=== PATIENT | male | born 1955 | race Caucasian/White ===

== ENCOUNTER → 2017-07-22 | Outpatient (CLI) | payer MEDICARE, OTHER ==
[~2017-07-22] MED LIST: ALLO300T PO; BECL8.7A6 IH; BENZ200C47 PO; DOXY100C2 PO; HYDR-2758 PO; MELO15TA23 PO; TIOT18CA IH
--- NOTE | 2017-07-22 09:09 | RAD ---
MRI Lumbar Spine without contrast History: Low back pain worse the last 6 months, bilateral leg radiculopathy right greater than left Technique: Multiplanar, multi sequential noncontrast MR imaging was performed of the lumbar spine. Contrast: None Comparison: None Findings: Lumbar vertebral body stature is maintained. Conus terminates at T12-L1. Mild linear fat signal intensity at the L1 level is likely due to mild fatty filum terminale. There is mild degenerative disc disease at L2-3 and mild disc desiccation L1-2, L3-4 and L4-5. There are posterior annular tears at L4-5 and L1-2, anterior annular tears at L2-3 and L3-4. There is no significant marrow edema. L1-L2: There is negligible disc osteophyte complex and bulge. Neural foramina and spinal canal are adequate. L2-L3: There is negligible disc osteophyte complex and bulge. There is minimal narrowing of the far lateral recesses greater on the right. Neural foramina are adequate. L3-L4: There is a minimal disc osteophyte complex and bulge, extending to the inferior neural foramina. Spinal canal is overall adequate. Neural foramina are adequate. L4-L5: There is moderate facet degenerative change bilaterally. There is mild buckling of the ligamentum flavum. There is minimal disc osteophyte complex and bulge, extent into the inferior neural foramina bilaterally. There is moderate narrowing of the far right lateral recess. There is mild left and moderate right neural foramina compromise, contact of the undersurface and dorsal surface exiting right L4 nerve root in the neural foramen and the proximal extraforaminal region. L5-S1: Spinal canal and neural foramina are adequate. Impression: 1. There is moderate narrowing of the far right lateral recess L4-5 2. There is moderate narrowing of the right L4-5 neural foramen with contact exiting right L4 nerve root, minimal narrowing on the left at L4-5. 3. There is mild degenerative disc disease greatest L2-3. Electronically signed by: Hugo Burgess MD (07/22/2017 9:06 AM) [facility]
== END | disposition home or self-care (01) ==
LOC: MRI 07:52
DX: M51.36 Other intervertebral disc degeneration, lumbar region (principal); M54.41 Lumbago with sciatica, right side; M54.17 Radiculopathy, lumbosacral region
CPT/HCPCS: 72148

== ENCOUNTER → 2017-07-23 | Outpatient (CLI) | payer OTHER, MEDICARE ==
[~2017-07-23] MED LIST changes: +IOHEXOL 180 MG/ML 10 ML VIAL. ONE; +methylPREDNISolone ACETATE 40 MG/ML VIAL. ONE; +methylPREDNISolone ACETATE 80 MG/ML VIAL. ONE
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
== END | disposition home or self-care (01) ==
LOC: PNCL 10:48
PROVIDERS: ATTEND Anesthesiology
DX: M51.16 Intervertebral disc disorders with radiculopathy, lumbar region (principal); J44.9 Chronic obstructive pulmonary disease, unspecified; M19.90 Unspecified osteoarthritis, unspecified site; Z88.6 Allergy status to analgesic agent; Z88.8 Allergy status to other drugs, medicaments and biological substances
CPT/HCPCS: 62323; J1030; J1040

== ENCOUNTER → 2017-08-06 | Outpatient (CLI) | payer OTHER, MEDICARE ==
--- NOTE | 2017-08-06 13:00 | PAIN ---
DATE OF SERVICE: 08/06/2017 DIAGNOSES: Lumbar radiculopathy with lumbar degenerative disk disease and lumbar herniated disk. HISTORY OF PRESENT ILLNESS: The patient is a 61-year-old male who returns for followup status post lumbar epidural steroid injection x 1. The patient reports only minimal decrease in pain, still some significant pain in the low back and right lower extremity as it was previously, worse with walking, standing and changing positions. The patient reports it is still sharp and basically constant, alternating with some aching pain in the low back radiating to posterior gluteus, posterolateral thigh, lateral anterior thigh, anterior medial thigh, medial lower leg. Rates it a 10 on a scale of 10 at its worst, 7 on average and a 5 at its least and is a 7 today. The patient reports no new motor or sensory deficits, still significant pain. It does not awaken him from sleep. He feels much better with lying down or sitting down, worse with standing, walking, bending or changing positions. PHYSICAL EXAMINATION: VITAL SIGNS: The patient's blood pressure is 130/84, pulse 87, respirations 18, temperature 97.6 degrees Fahrenheit, height 6 feet, weight is 184 pounds. GENERAL: The patient is awake, alert, oriented, appropriate, very pleasant demeanor. HEENT: Head shows normocephalic, atraumatic. Extraocular movements are intact and symmetrical. Oral cavity: Mucous membranes are moist and pink. Dentition is intact. NECK: Shows anterior throat supple without palpable lymphadenopathy noted. Swallow reflex is symmetrical. CHEST: Shows normal on inspection. Breath sounds are clear to auscultation bilaterally. HEART: Shows S1, S2 clear. No murmurs auscultated. ABDOMEN: Soft, nontender, nondistended. No palpable organomegaly is noted. No rebound or guarding demonstrated. BACK: Shows spine grossly in the midline. Lumbar paraspinous muscle shows symmetrical on inspection, with palpation shows some moderate tenderness, but only diffusely in the low lumbar distribution. The patient also has multiple skin graft sites over the lumbar distribution as previously appreciated. EXTREMITIES: Lower extremities show deep tendon reflexes at 2+ in the patellar and tendo calcaneus tendons. Motor exam is strong with 5/5 dorsiflexion, extension, quadriceps and hamstring flexion and equal bilaterally. Peripheral pulses are 1+ posterior tibial. No peripheral edema is noted. Options were discussed with the patient. The patient's old chart was reviewed as his current medication regimen updated. Current review of systems updated today as well. We will proceed with a second in the series of lumbar epidural steroid injection with fluoroscopic guidance. Risks were again discussed including, but not limited to bleeding, infection, possibility of epidural hematoma, subsequent neurologic compromise, dural puncture, headaches, spinal cord and/or nerve damage, side effects of steroid medication and poor results regarding pain control. The patient understands and wished to proceed. The patient will return to clinic in approximately 2 weeks for followup. He was counseled as to return appointment, activity level and side effects to be aware of. DIAGNOSES: Lumbar radiculopathy with lumbar degenerative disk disease and lumbar herniated disk. PROCEDURE: Lumbar epidural steroid injection in translaminar approach at the L4-L5 level using C-arm fluoroscopic guidance under sterile prep and drape using local anesthetic. MEDICATION INJECTED: A total of 120 mg Depo-Medrol plus 10 mL of preservative-free normal saline and 2 mL of Isovue for contrast. CONDITION AT DISCHARGE: Stable. The patient tolerated the procedure well, had no complications. MIR ALANIZ MD DR: AVILA/hung JOB#: [id number] / [id number]
== END | disposition home or self-care (01) ==
LOC: PNCL 10:06
PROVIDERS: ATTEND Anesthesiology
DX: M51.16 Intervertebral disc disorders with radiculopathy, lumbar region (principal); Z88.6 Allergy status to analgesic agent; Z88.5 Allergy status to narcotic agent; Z88.8 Allergy status to other drugs, medicaments and biological substances
CPT/HCPCS: 62323; J1030; J1040

== ENCOUNTER → 2017-08-21 | Outpatient (CLI) | payer OTHER, MEDICARE ==
--- NOTE | 2017-08-21 17:06 | PAIN ---
DATE OF SERVICE: 08/21/2017 DIAGNOSES: Lumbar radiculopathy with lumbar degenerative disk disease, lumbar herniated disk. HISTORY OF PRESENT ILLNESS: The patient is a 61-year-old male who returns for followup status post lumbar epidural steroid injection x 2. The patient reports about 90% improvement for the first week to 2 weeks after his last injection. The patient reports pain began to return after that but only to a moderate extent in the low back and right leg. The patient reports he was doing very well until about 1 week ago, the pain began to return. It is aching, sharp, dull, becoming more constant, rating the posterior hip and lateral gluteus from the low back on the right side into the posterior thigh. The patient reports it is a 10 on a scale of 10 at its worst, 7 on average, is a 5 at its least, is a 5 today. The patient did see Neurosurgery evaluation and is recommending surgery if the pain continues as he does have a L4-L5 herniated disk on the right side. The patient reports it still wakes him from sleep occasionally, not every night, but he is doing overall better, increased his activity with greater ease and comfort and generally getting around better most times. The patient reports no new motor or sensory deficits, no new bowel or bladder incontinence or other complaints. PHYSICAL EXAMINATION: VITAL SIGNS: Today, his blood pressure is 131/88, pulse 81, respirations are 20, temperature 97.5 degrees Fahrenheit, height is 6 feet 0 inches, weight is 190 pounds. GENERAL: The patient is awake, alert, oriented, appropriate, very pleasant demeanor. HEENT: Head is normocephalic, atraumatic. Extraocular muscles are intact and symmetrical. Oral cavity: Mucous membranes moist and pink. Dentition is intact. NECK: Shows anterior throat supple without palpable lymphadenopathy noted. Swallow reflex is symmetrical. CHEST: Shows normal with inspection. Breath sounds clear to auscultation bilaterally. HEART: Shows S1, S2 clear. No murmurs auscultated. ABDOMEN: Soft, nontender, nondistended. No palpable organomegaly is noted. BACK: Shows spine grossly in midline. Normal appearing thoracic kyphosis and lumbar lordotic curvature. Lumbar paraspinous muscle shows some moderate tenderness with palpation, but is symmetrical on inspection, no radiation, no trigger points. The patient has good rotational motion both laterally as well as extension and flexion. EXTREMITIES: Lower extremities show deep tendon reflexes at 2+ in the patellar, 1+ tendo calcaneus tendons. Motor exam is strong with 5/5 dorsiflexion, extension, quadriceps and hamstring flexion and equal. Peripheral pulses are 1+ posterior tibial. No peripheral edema is noted. Options were discussed with the patient. The patient's old chart was reviewed as his current medication regimen and updated. Current review of systems is updated today as well. We will proceed with a lumbar epidural steroid injection today is the third in the series with fluoroscopic guidance. Risks were again discussed including, but not limited to bleeding, infection, possibility of epidural hematoma, subsequent neurologic compromise, dural puncture, headaches, spinal cord and/or nerve damage, side effects of steroid medication and poor results regarding pain control. The patient understands and wished to proceed. The patient will return to clinic in approximately 2 weeks for followup. He was counseled to return appointment, activity level and side effects to be aware of. The patient will also follow up with his neurosurgeon regarding surgical alternatives if desired. DIAGNOSIS: Lumbar radiculopathy with lumbar degenerative disk disease, lumbar herniated disk. PROCEDURE: Lumbar epidural steroid injection, translaminar approach at the L4-L5 level using C-arm fluoroscopic guidance under sterile prep and drape using local anesthetic. MEDICATION INJECTED: A total of 120 mg Depo-Medrol plus 10 mL of preservative free normal saline and 2 mL of Isovue for contrast. CONDITION AT DISCHARGE: Stable. The patient tolerated the procedure well, had no complications. MIR ALANIZ MD DR: AVILA/hung JOB#: [id number] / [id number]
== END | disposition home or self-care (01) ==
LOC: PNCL 09:18
PROVIDERS: ATTEND Anesthesiology
DX: M51.16 Intervertebral disc disorders with radiculopathy, lumbar region (principal); Z88.8 Allergy status to other drugs, medicaments and biological substances; Z88.6 Allergy status to analgesic agent; Z91.041 Radiographic dye allergy status
CPT/HCPCS: 62323; J1030; J1040

== ENCOUNTER → 2017-08-27 | Outpatient (CLI) | payer OTHER, MEDICARE ==
[2017-08-27 09:58] LABS: ADD MAN DIFF? NO
[2017-08-27 10:00] LABS: BASO # 0.1 x10^3/uL (0.0-0.2); BASO % 1 % (0-3); EOS % 1 % (0-3); HEMATOCRIT 47.1 % (39.0-53.0); HEMOGLOBIN 15.5 g/dL (13.0-17.5); LYMPH # 1.6 x10^3/uL (1.0-4.8); LYMPH % 15 % (24-48); MEAN CORPUSCULAR HEMOGLOBIN 27 pg (25-35); MEAN CORPUSCULAR HGB CONC 33 g/dL (31-37); MEAN CORPUSCULAR VOLUME 81 fL (79-100); MONO % 7 % (0-9); NEUT % 76 % (31-73); PLATELET COUNT 214 x10^3/uL (140-400); RED BLOOD COUNT 5.79 x10^6/uL (4.30-5.70); RED CELL DISTRIBUTION WIDTH 14.7 % (11.5-14.5); WHITE BLOOD COUNT 11.2 x10^3/uL (4.0-11.0)
[2017-08-27 10:20] LABS: ALBUMIN 3.3 g/dL (3.4-5.0); ALBUMIN/GLOBULIN RATIO 0.8 (1.0-1.7); ALK PHOS 75 U/L (46-116); ALT (SGPT) 23 U/L (16-63); ANION GAP 9 (6-14); AST (SGOT) 14 U/L (15-37); BLOOD UREA NITROGEN 23 mg/dL (8-26); BUN/CREATININE RATIO 23 (6-20); CALCIUM 8.7 mg/dL (8.5-10.1); CARBON DIOXIDE 30 mmol/L (21-32); CHLORIDE 101 mmol/L (98-107); GLUCOSE 101 mg/dL (70-99); POTASSIUM 4.1 mmol/L (3.5-5.1); SODIUM 140 mmol/L (136-145); TOTAL BILIRUBIN 0.2 mg/dL (0.2-1.0); TOTAL PROTEIN 7.7 g/dL (6.4-8.2)
[2017-08-27 21:17] LABS: MRSA BY PCR Negative (Negative)
== END | disposition home or self-care (01) ==
LOC: SURGPAT 09:33
DX: Z01.818 Encounter for other preprocedural examination (principal); M48.061 Spinal stenosis, lumbar region without neurogenic claudication; M54.16 Radiculopathy, lumbar region
CPT/HCPCS: 36415; 80053; 85025; 87641

== ENCOUNTER 2017-09-05 06:52 | Day surgery (SDC) | payer OTHER, MEDICARE ==
[2017-09-05] MEDS ORDERED: fentaNYL PF VIAL 100 MCG/2 ML VIAL IV (07:00)
[2017-09-05] MEDS ORDERED: ONDANSETRON PF 4 MG/2 ML VIAL. IV (07:00)
[2017-09-05] MEDS ORDERED: PROCHLORPERAZINE 10 MG/2 ML VIAL. IV (07:00)
[2017-09-05] MEDS ORDERED: IV RINGERS,LACTATED 1000ML 1,000 ML IV (07:00)
[2017-09-05] MEDS ORDERED: LIDOCAINE 1% PF 2 ML VIAL. ID (07:00)
[2017-09-05] MEDS ORDERED: REMIFENTANIL 2 MG VIAL. IV (08:14)
[2017-09-05] MEDS ORDERED: fentaNYL PF VIAL 100 MCG/2 ML VIAL (08:16)
[2017-09-05] MEDS ORDERED: PHENYLEPHRINE in 0.9% NACL PF 1 MG/10 ML SYRINGE. IV (08:17)
[2017-09-05] MEDS ORDERED: LIDOCAINE 2% PF Vial for OR 5 ML VIAL. (08:17)
[2017-09-05] MEDS ORDERED: PROPOFOL 20 ML IV (08:17)
[2017-09-05] MEDS ORDERED: ePHEDrine PF IN SALINE 50 MG/5 ML DISP.SYRIN IV (08:17)
[2017-09-05] MEDS ORDERED: ROCURONIUM 50 MG/5 ML VIAL. (08:17)
[2017-09-05] MEDS ORDERED: DEXAMETHASONE SOD PHOS 20 MG/5 ML VIAL. (08:17)
[2017-09-05] MEDS ORDERED: MIDAZOLAM HCL/PF 2 MG/2 ML VIAL. (08:17)
[2017-09-05] MEDS ORDERED: PROPOFOL 50 ML IV (08:17)
[2017-09-05] MEDS ORDERED: ONDANSETRON PF 4 MG/2 ML VIAL. (08:17)
[2017-09-05] MEDS: BUPIVAC MPF-EPI 0.75%-1:200000 30 ML VIAL. (09:38)
[2017-09-05] MEDS: BACITRACIN 50,000 UNIT in IV NORMAL SALINE 1000ML BAG 1,000 ML IRR (09:38)
[2017-09-05] MEDS: KETOROLAC 60 MG/2 ML INJ FOR OR. (09:38)
[2017-09-05] MEDS: GELATIN SPONGE SIZE 100. (09:38)
[2017-09-05] MEDS: THROMBIN TOPICAL 20,000 UNIT SPRAY.SYRN KIT TP (09:38)
[2017-09-05] MEDS ORDERED: NEOSTIGMINE METHYLSULFATE 5 MG/5 ML SYRINGE. (10:06)
[2017-09-05] MEDS ORDERED: GLYCOPYRROLATE 1 MG/5 ML VIAL. (10:06)
[2017-09-05] MEDS ORDERED: ALBUTEROL SULFATE 2.5 MG/3 ML NEBU. (11:03)
[2017-09-05] MEDS: ALBUTEROL SULFATE 2.5 MG/3 ML NEBU. NEB (11:25)
[2017-09-05] MEDS ORDERED: HYDROcodone/APAP 7.5/325MG 1 TAB TABLET PO (11:30)
[2017-09-05] MEDS: BENZONATATE 100 MG CAPSULE. PO (11:31)
[2017-09-05] MEDS: fentaNYL PF VIAL 100 MCG/2 ML VIAL IV (11:43)
[2017-09-05] MEDS: HYDROcodone/APAP 7.5/325MG 1 TAB TABLET PO (11:59)
== END 2017-09-05 13:12 | disposition home or self-care (01) ==
LOC: SURG 06:52
DX: M48.062 Spinal stenosis, lumbar region with neurogenic claudication (principal); I10 Essential (primary) hypertension; J44.9 Chronic obstructive pulmonary disease, unspecified; M10.9 Gout, unspecified; M19.90 Unspecified osteoarthritis, unspecified site; Z72.89 Other problems related to lifestyle; F17.210 Nicotine dependence, cigarettes, uncomplicated; Z88.8 Allergy status to other drugs, medicaments and biological substances; Z79.899 Other long term (current) drug therapy
CPT/HCPCS: 63030; 76000; 88304; 88311; 97162-GP; 97530-GP; G8978-CJ-GP; G8979-CJ-GP; G8980-CJ-GP; J1100; J1885; J2250; J2370; J2405; J2704; J2710; J3010; J3490; J7030; J7613

== ENCOUNTER → 2017-12-20 | Outpatient (CLI) | payer OTHER, MEDICARE | END | disposition home or self-care (01) | LOC: RAD 12:23 | DX: J44.1 Chronic obstructive pulmonary disease with (acute) exacerbation (principal); R09.1 Pleurisy; J18.1 Lobar pneumonia, unspecified organism | CPT/HCPCS: 71046 ==

== ENCOUNTER → 2018-05-01 | Outpatient (CLI) | payer OTHER, MEDICARE ==
[2017-09-05 12:15] VITALS: BP 126/74
[~2018-05-01] MED LIST changes: +DOCU-109 PO; +HYDR-2762 PO; -IOHEXOL 180 MG/ML 10 ML VIAL. ONE; +METH-38 PO; -methylPREDNISolone ACETATE 40 MG/ML VIAL. ONE; -methylPREDNISolone ACETATE 80 MG/ML VIAL. ONE
--- NOTE | 2018-05-01 12:41 | RAD ---
CHEST PA LATERAL dated 05/01/2018 12:00 AM. Comparison: 12/20/2017 Clinical Indication: PNEUMONIA OF LEFT UPPER LOBE DUE TO INFECTIOUS ORGANISM. F/U CONSOLIDATION.. Findings: PA and lateral views of the chest were obtained. Heart and mediastinal contours are stable. Postoperative changes of the left hilum with associated volume loss, similar to prior study. The previously described perihilar consolidation has improved from prior exam. There is a persistent nodular opacity at the left apex, unchanged. Mild linear scarring at the left base. The right lung remains clear. No pneumothorax. Impression: 1. Postsurgical changes of the left hilum with left-sided volume loss, unchanged. 2. Interval improvement in perihilar consolidation on the left. There is a persistent small nodular opacity at the left apex for which continued follow-up imaging may be warranted to ensure long-term stability. Electronically signed by: Mark Siddiqi MD (05/01/2018 12:38 PM) [facility]
== END | disposition home or self-care (01) ==
LOC: RAD 11:15
PROVIDERS: ATTEND Internal Medicine
DX: J18.1 Lobar pneumonia, unspecified organism (principal); I10 Essential (primary) hypertension; J44.1 Chronic obstructive pulmonary disease with (acute) exacerbation; F17.210 Nicotine dependence, cigarettes, uncomplicated; Z88.8 Allergy status to other drugs, medicaments and biological substances; Z88.6 Allergy status to analgesic agent; Z88.5 Allergy status to narcotic agent
CPT/HCPCS: 71046

== ENCOUNTER → 2018-05-19 | Outpatient (CLI) | payer OTHER, MEDICARE ==
[2017-09-05 12:15] VITALS: BP 126/74
[~2018-05-19] MED LIST changes: +CONTRAST GIVEN. MC PRN; +IOHEXOL 300 MG/ML 100ML VIAL. IV ONE
--- NOTE | 2018-05-19 17:37 | RAD ---
PQRS Compliance Statement: One or more of the following individualized dose reduction techniques were utilized for this examination: 1. Automated exposure control 2. Adjustment of the mA and/or kV according to patient size 3. Use of iterative reconstruction technique CT CHEST WO/W CONTRAST Clinical Indication: LEFT UPPER LOBE CONSOLIDATION, COUGH. Comparison: Two-view chest, May 01, 2018. TECHNIQUE: Helical CT imaging of the chest is performed before and after 75 cc Omnipaque 300 IV contrast. Findings: There is a 7 mm hypodense left thyroid nodule. There are 2 subcentimeter prevascular lymph nodes. There is a soft tissue density mass at the left hilum that measures up to 4 cm AP by 2 cm transverse by 4.5 cm craniocaudal, for example coronal image 33. There are postsurgical changes of left lower lobectomy. There is volume loss and elevation of left hemidiaphragm. There is narrowing of the left upper lobe bronchus by the left hilar mass. There are dilated tubular structures in the left lung apex that are not vascular and may be dilated opacified bronchi. There are a few groundglass micronodular opacities in the left lung apex. The opacified bronchi may be postobstructive infection or endobronchial spread of tumor. Mild respiratory motion artifact. The right lung is clear. No pleural effusion. Visualized upper abdomen is unremarkable. No compression fracture in the thoracic spine. IMPRESSION: 1. There is a soft tissue density mass at the left hilum that narrows the left upper lobe bronchus and is suspicious for malignancy. 2. There are dilated tubular structures in the left lung apex that may be dilated and opacified bronchi. Electronically signed by: Brayan Kiran MD (05/19/2018 5:34 PM) [id number]
== END | disposition home or self-care (01) ==
LOC: CT 09:34
DX: R91.8 Other nonspecific abnormal finding of lung field (principal); E04.1 Nontoxic single thyroid nodule; J18.1 Lobar pneumonia, unspecified organism; I10 Essential (primary) hypertension; J44.1 Chronic obstructive pulmonary disease with (acute) exacerbation; F17.210 Nicotine dependence, cigarettes, uncomplicated; Z88.5 Allergy status to narcotic agent; Z88.6 Allergy status to analgesic agent; Z88.8 Allergy status to other drugs, medicaments and biological substances; Z91.041 Radiographic dye allergy status; Z79.899 Other long term (current) drug therapy
CPT/HCPCS: 71270; Q9967

== ENCOUNTER → 2018-07-14 | Day surgery (SDC) | payer OTHER, MEDICARE ==
[~2018-07-14] MED LIST changes: +0.9 % SODIUM CHLORIDE 10 ML DISP.SYRIN. IV PRN; +ALBUTEROL SULFATE 2.5 MG/3 ML NEBU. NEB PRN; +BUDE10.22 IH; -CONTRAST GIVEN. MC PRN; +EPINEPHrine 1 MG/ML VIAL INJ ONE; +EPINEPHrine 1 MG/ML VIAL INJ PRN; -IOHEXOL 300 MG/ML 100ML VIAL. IV ONE; +IV RINGERS,LACTATED 1000ML 1,000 ML IV SCH; +LIDOCAINE 1% Multi-Dose 50 ML VIAL. INJ PRN; +LIDOCAINE 1% Multi-Dose 50 ML VIAL. ONE; +LIDOCAINE 1% PF 2 ML VIAL. ONE; +LIDOCAINE 2% VISCOUS 100 ML BOTTLE. MM PRN; +LIDOCAINE 2% VISCOUS 100 ML BOTTLE. ONE; +LIDOCAINE 4% TOPICAL 50 ML SOLUTION. MM PRN; +LIDOCAINE 4% TOPICAL 50 ML SOLUTION. ONE; +PROAIR HFA8.5 GM INH; +PROPOFOL 40 ML IV ONE
[2018-07-14 12:55] LABS: BASO # 0.1 x10^3/uL (0.0-0.2); BASO % 1 % (0-3); EOS # 0.2 x10^3/uL (0.0-0.7); EOS % 2 % (0-3); HEMATOCRIT 44.6 % (39.0-53.0); LYMPH # 1.6 x10^3/uL (1.0-4.8); LYMPH % 19 % (24-48); MEAN CORPUSCULAR HEMOGLOBIN 28 pg (25-35); MEAN CORPUSCULAR HGB CONC 34 g/dL (31-37); MEAN CORPUSCULAR VOLUME 82 fL (79-100); MONO # 0.7 x10^3/uL (0.0-1.1); MONO % 8 % (0-9); NEUT # 5.9 x10^3uL (1.8-7.7); NEUT % 70 % (31-73); PLATELET COUNT 205 x10^3/uL (140-400); RED BLOOD COUNT 5.41 x10^6/uL (4.30-5.70); RED CELL DISTRIBUTION WIDTH 14.2 % (11.5-14.5); WHITE BLOOD COUNT 8.5 x10^3/uL (4.0-11.0)
[2018-07-14 13:07] LABS: PROTHROMBIN TIME PATIENT 13.1 SEC (11.7-14.0)
[2018-07-14 14:07] VITALS: BP 129/70
--- NOTE | 2018-07-14 14:58 | OP ---
DATE OF SURGERY: PROCEDURE: Bronchoscopy. INDICATIONS: Lung mass. DESCRIPTION OF PROCEDURE: Informed consent was obtained from the patient. All risks and benefits were explained. He agreed to proceed with the procedure. Propofol was used by Anesthesia. Bronch was introduced through the right nostril. The upper airway was passed. Vocal cords moved equally with respiration. The trachea was reached. No tracheal lesions seen except for some white frothy secretions, which were all aspirated. The jere was deviated towards the right mainstem. The right lung was examined. All subsegments of right upper, right middle and right lower lobe were examined. No endobronchial lesions seen and no significant secretions seen. There was mild widening of the subcarina at the opening of the right upper lobe. 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 The mass was very vascular and with the touch of the scope and coughing, started to ooze blood. Epinephrine was used to control the bleeding, which was successful. Bronchial wash was performed from this area and then a cytology brush x 1 was performed. Once the bleeding stopped, the patient had two endobronchial biopsies. There was oozing of blood noted after the biopsy, which controlled effectively with squirts of epinephrine. The patient tolerated the procedure well. IMPRESSION: 1. 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 The mucosa leading to the left upper lobe bronchus was very erythematous as well. 2. Endobronchial biopsy x 2, cytology brush x 1 and bronchial wash was performed from this area. 3. The right lung showed no evidence of any endobronchial lesion. There was mild widening of the subcarina at the opening of the right upper lobe bronchus. 4. The jere was also deviated towards the right mainstem bronchus, but no lesions seen at the level of the jere. 5. Follow the results of biopsy. PAT NORIEGA MD DR: ALYSSA/hung JOB#: [id number] / [id number]
--- NOTE | 2018-07-15 14:09 | PATHOLOGY ---
Note [facility] Accession Number: [id number] TESTS RESULT FLAG UNITS REF RANGE LAB Clinician Provided Cytology Information No. of containers..01 Other (Miscellaneous) Source: BRIANNE BRUSH TIP DIAGNOSIS: BRIANNE BRUSH TIP INCONCLUSIVE - HYPOCELLULAR SPECIMEN WITH RARE ATYPICAL CELLS. NORMAL BRONCHIAL CELLS AND MACROPHAGES ARE PRESENT. PULMONARY MACROPHAGES (DUST CELLS) ARE PRESENT. SCANT CELLULARITY. Signed out by: Festus Callejas MD, Pathologist NPI- [id number] Performed by: Brayan Sierra, Radio Time Salesperson ([facility]) Gross description: 01 50ML, NONE, CLEAR /LCS FLAG LEGEND: L-Low Normal,H-High Normal,LL-Alert Low,HH-Alert High <-Panic Low,>-Panic High,A-Abnormal,AA-Critical Abnormal Performed at: [address] [address] Emmanuel Warren MD, [address] [address] Nathan Galvez MD, Specimen Comment: A courtesy copy of this report has been sent to Specimen Comment: [phone]. Specimen Comment: Report sent to Specimen Comment: A duplicate report has been generated due to demographic updates. Performed at: [address], [place], [place] [id number] MD Emmanuel Warren MD Phone: [phone]
--- NOTE | 2018-07-15 14:09 | PATHOLOGY ---
Note [facility] Accession Number: [id number] TESTS RESULT FLAG UNITS REF RANGE LAB Clinician Provided Cytology Information No. of containers..01 Other (Miscellaneous) Source: [A] 01 BRIANNE BRUSHING DIAGNOSIS: [A] 02 BRIANNE BRUSHING POSITIVE FOR MALIGNANT CELLS. NON SMALL CELL CARCINOMA IS PRESENT. Signed out by: Festus Callejas MD, Pathologist NPI- [id number] Performed by: Brayan Sierra, Analysis Lead ([facility]) Gross description: 01 25ML, NONE, CLEAR /LCS FLAG LEGEND: L-Low Normal,H-High Normal,LL-Alert Low,HH-Alert High <-Panic Low,>-Panic High,A-Abnormal,AA-Critical Abnormal Performed at: [address] [address] Emmanuel Warren MD, [address] [address] Nathan Galvez MD, Specimen Comment: A courtesy copy of this report has been sent to Specimen Comment: [phone]. Specimen Comment: Report sent to Specimen Comment: A duplicate report has been generated due to demographic updates. Performed at: [address] [place] [id number] MD Emmanuel Warren MD Phone: [phone]
--- NOTE | 2018-07-15 14:09 | PATHOLOGY ---
Note [facility] Accession Number: [id number] TESTS RESULT FLAG UNITS REF RANGE LAB Clinician Provided Cytology Information No. of containers..01 Other (Miscellaneous) Source: BRIANNE BRONCH WASH DIAGNOSIS: BRIANNE BRONCH WASH INCONCLUSIVE - RARE CLUSTERS OF ATYPICAL CELLS ARE PRESENT. NORMAL BRONCHIAL CELLS AND MACROPHAGES ARE PRESENT. PULMONARY MACROPHAGES (DUST CELLS) ARE PRESENT. Signed out by: Festus Callejas MD, Pathologist NPI- [id number] Performed by: Brayan Sierra, Boom Boss ([facility]) Gross description: 01 12ML, RED, CLOUDY /LCS FLAG LEGEND: L-Low Normal,H-High Normal,LL-Alert Low,HH-Alert High <-Panic Low,>-Panic High,A-Abnormal,AA-Critical Abnormal Performed at: [address] [address] Emmanuel Warren MD, [address] [address] Nathan Galvez MD, Specimen Comment: A courtesy copy of this report has been sent to Specimen Comment: [phone]. Specimen Comment: Report sent to Specimen Comment: A duplicate report has been generated due to demographic updates. Performed at: [address], [place] [id number] MD Emmanuel Warren MD Phone: [phone]
--- NOTE | 2018-07-17 17:08 | PATHOLOGY ---
[facility] Accession Number: [id number] . 01 Material submitted: . BRONCH BIOPSY LEFT UPPER LOBE . 01 Clinical history: . Lung mass . 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 (Please see comment). . (SKM:at;07/15/2018) QTA/07/15/2018 . 02 Comment: The tumor cells are positive for P40 and negative for TTF-1, cytokeratin 7, and napsin. . The findings in this case were relayed to Dr. Jo on 07/15/2018. This case has also been reviewed by Dr. Jesus M.D. who agrees with the diagnosis. . (SKM:at;07/15/2018) . 02 Electronically signed: . Festus Callejas MD, Pathologist NPI- [id number] . 01 Gross description: . Received in formalin labeled "Sarahi, Al[place], BBX BRIANNE," are 3 segments of shah soft tissue measuring 0.6 x 0.4 x 0.1 cm in aggregate dimensions and ranging from 0.1 to 0.3 cm in maximum dimension. The specimen is submitted entirely in cassette A1. (TSD; 07/14/2018) TOB/TOB . 02 Pathologist provided ICD-10: C34.12 . 02 CPT . 221028, A02291, A70950 Specimen Comment: A courtesy copy of this report has been sent to Specimen Comment: [phone], . Specimen Comment: Report sent to / DR TINAJERO Performed at: 01 [facility] [address] [place] [id number] MD Emmanuel Warren MD Phone: [phone] Performed at: [address] [id number] MD Nathan Galvez MD Phone: [phone]
== END | disposition home or self-care (01) ==
LOC: SURG 12:09
PROVIDERS: ATTEND Internal Medicine Critical Care Medicine
DX: C34.12 Malignant neoplasm of upper lobe, left bronchus or lung (principal); Z88.6 Allergy status to analgesic agent; Z88.8 Allergy status to other drugs, medicaments and biological substances; M19.90 Unspecified osteoarthritis, unspecified site; Z98.890 Other specified postprocedural states; Z79.899 Other long term (current) drug therapy; Z79.01 Long term (current) use of anticoagulants; F17.210 Nicotine dependence, cigarettes, uncomplicated
CPT/HCPCS: 31623; 31625; 36415; 85025; 85610; 85730; 87205; 88104; 88112; 94640; J0171; J2704; J7613; 31622; 87070; 88305; 88341; 88342

== ENCOUNTER → 2018-07-17 | Outpatient (CLI) | payer OTHER, MEDICARE ==
[2018-07-14 14:07] VITALS: BP 129/70
[~2018-07-17] MED LIST changes: -0.9 % SODIUM CHLORIDE 10 ML DISP.SYRIN. IV PRN; -ALBUTEROL SULFATE 2.5 MG/3 ML NEBU. NEB PRN; -EPINEPHrine 1 MG/ML VIAL INJ ONE; -EPINEPHrine 1 MG/ML VIAL INJ PRN; -IV RINGERS,LACTATED 1000ML 1,000 ML IV SCH; -LIDOCAINE 1% Multi-Dose 50 ML VIAL. INJ PRN; -LIDOCAINE 1% Multi-Dose 50 ML VIAL. ONE; -LIDOCAINE 1% PF 2 ML VIAL. ONE; -LIDOCAINE 2% VISCOUS 100 ML BOTTLE. MM PRN; -LIDOCAINE 2% VISCOUS 100 ML BOTTLE. ONE; -LIDOCAINE 4% TOPICAL 50 ML SOLUTION. MM PRN; -LIDOCAINE 4% TOPICAL 50 ML SOLUTION. ONE; -PROPOFOL 40 ML IV ONE
--- NOTE | 2018-07-17 13:04 | RAD ---
CLINICAL HISTORY: Lung mass on prior CT. INDICATION: Initial evaluation. COMPARISON: CT Chest 05/19/18 TECHNIQUE: Location of scan: [facility] Radiopharmaceutical Dose: 12.6 mCi F-18 FDG intravenous Blood glucose at time of study: 107 FDG uptake time = 60 minutes. Images were obtained from the mid head to the mid thighs. A low dose, noncontrast CT study was performed for the purpose of attenuation correction and anatomic localization. FINDINGS: Head and Neck: Physiologic activity is seen within the head and neck. Chest: The previously seen left hilar mass has an SUV max of 12.5 The groundglass opacities in the left upper lobe are grossly stable. Evaluation for increased metabolic activity is limited given the small size and patchy nature. A few mildly prominent mediastinal lymph nodes including an AP window lymph node measuring approximately 7 mm in short axis are seen. Grossly physiologic activity with SUV max of the AP window lymph node measuring 2.8. No pleural effusion or pneumothorax. Abdomen and Pelvis: Physiologic activity seen within the small large bowel. No abnormal uptake is seen within the solid organs. Skeletal: Physiologic activity is seen within the osseous structures. Reference SUV Values: Mediastinal SUV Max: 3 Liver SUV Max: 3.2 IMPRESSION: Hypermetabolic left hilar mass is seen corresponding to findings seen on prior CT. Given morphologic appearance and increased metabolic activity, this is highly suspicious for malignancy/recurrence. Although a few mildly prominent mediastinal lymph nodes are seen, they do not demonstrate increased metabolic activity. Radiation Dosimetry: The radiopharmaceutical used for this exam delivers approximately 0.7 mSv/mCi (70 mRem/mCi) Source: ICRP Publication 106
== END | disposition home or self-care (01) ==
LOC: PETSC 09:31
PROVIDERS: ATTEND Internal Medicine Critical Care Medicine
DX: R91.8 Other nonspecific abnormal finding of lung field (principal)
CPT/HCPCS: 78815; A9552

== ENCOUNTER → 2018-07-21 | Outpatient (CLI) | payer OTHER, MEDICARE ==
[2018-07-14 14:07] VITALS: BP 129/70
--- NOTE | 2018-07-21 16:17 | RAD ---
Quantitative perfusion lung scan, 07/21/2018: HISTORY: Left lung mass, previous left lobectomy Imaging of the chest was performed following IV injection of 6.2 mCi of technetium 99m MAA. Only approximately 4 percent of the overall lung perfusion occurs on the left and 96 percent on the right. Electronically signed by: Michael Mcrae MD (07/21/2018 4:13 PM) [facility]
== END | disposition home or self-care (01) ==
LOC: NM 07:44
PROVIDERS: ATTEND Internal Medicine Critical Care Medicine
DX: Z01.818 Encounter for other preprocedural examination (principal); R06.00 Dyspnea, unspecified
CPT/HCPCS: 78597; 96374; A9540

== ENCOUNTER 2018-08-15 06:47 | Outpatient (CLI) | payer OTHER, MEDICARE ==
[~2018-08-15] VITALS: Ht 180.3 cm; Wt 87.1 kg
[2018-08-15] VITALS (7 sets, daily range): BP systolic 104–137; BP diastolic 62–77
[~2018-08-15 06:47] MED LIST changes: -HYDR-2758 PO; +HYDR-2761 PO; -HYDR-2762 PO; +HYDR-2765 PO
[2018-08-15 07:53] LABS: PROTHROMBIN TIME PATIENT 12.7 SEC (11.7-14.0)
[2018-08-15] MEDS ORDERED: LIDOCAINE 1%/EPI 1:100,000 20 ML VIAL. ONE (07:58)
[2018-08-15] MEDS ORDERED: LIDOCAINE 1%/EPI 1:100,000 20 ML VIAL. IJ ONE (08:15)
[2018-08-15] MEDS ORDERED: fentaNYL PF VIAL 100 MCG/2 ML VIAL IV ONE (08:15)
[2018-08-15] MEDS ORDERED: MIDAZOLAM HCL/PF 2 MG/2 ML VIAL. IV ONE (08:15)
--- NOTE | 2018-08-15 09:14 | RAD ---
Procedure: Ultrasound and fluoroscopically guided placement of right internal jugular power port.. 08/15/2018 9:09 AM Clinical Indication: LUNG CANCER TREATMENT Sedation: Conscious sedation was administered for 30 minutes. The patient was monitored by a qualified independent observer throughout the time of sedation. Please refer to the medical record for exact doses of medications utilized to achieve moderate sedation. Fluoroscopy time: 0.6 minutes Dose area product: 2 Gycm2 Consent: The procedure was explained in its entirety to the patient or the patients designated territory account representative by a member of the treatment team, including a discussion of the risks, benefits and commonly accepted alternatives to the procedure, as well as the expected consequences of no therapy whatsoever. Discussion of the risks included, but was not limited to, those that are most frequent and those that are rare but possibly severe or life-threatening, as well as the possibility of unforeseen complications. Technique and Findings: All elements of maximal sterile barrier technique including the use of a cap, mask, sterile gown, sterile gloves, large sterile sheet, appropriate hand hygiene, and 2% chlorhexidine for cutaneous antisepsis (or acceptable alternative antiseptic per current guidelines) were followed for this procedure. Following informed consent, and a timeout procedure, the patient was prepped and draped in the usual sterile fashion. Ultrasound interrogation of the right neck revealed patency and compressibility of the right internal jugular vein. A 21-gauge micropuncture was then used to gain access to this vein under ultrasound guidance. A hard copy ultrasound image was recorded. The needle was exchanged over a wire for a sheath. A 1 inch incision was made several centimeters inferior to the venotomy site. A catheter was tunneled from this site dermatotomy site in the neck. Catheter was advanced through peel-away sheath such that its tip was in the proximal right atrium with the patient supine. The catheter was trimmed to length and connected to the port reservoir. The port was found to flush and aspirate normally. The wound was closed in layers using 4-0 Vicryl suture. Sterile dressings were applied. Impression: Successful ultrasound and fluoroscopically guided placement of a right internal jugular PowerPort
== END 2018-08-15 10:08 | disposition home or self-care (01) ==
LOC: INTRAD 06:47
PROVIDERS: ATTEND Internal Medicine Hematology & Oncology
DX: C34.12 Malignant neoplasm of upper lobe, left bronchus or lung (principal); Z79.01 Long term (current) use of anticoagulants; Z88.6 Allergy status to analgesic agent; Z91.048 Other nonmedicinal substance allergy status; Z88.8 Allergy status to other drugs, medicaments and biological substances
CPT/HCPCS: 36415; 36561; 76937; 77001; 85610; 99152; 99153; C1788; C1892; J0690; J2250; J3010; J3490; C1751

== ENCOUNTER → 2018-09-22 | Outpatient (CLI) | payer OTHER, MEDICARE ==
[2018-09-16 12:39] VITALS: BP 145/82
[~2018-09-22] MED LIST changes: +ALBU2.5V8 INH; +APIX5TAB PO; -PROAIR HFA8.5 GM INH
--- NOTE | 2018-09-22 12:15 | RAD ---
Chest radiograph 09/22/2018 10:24 AM INDICATION: Shortness of air since yesterday. Lung cancer. COMPARISON: CT chest May 19, 2018, chest radiograph May 01, 2018 TECHNIQUE: Frontal view of the chest is provided. FINDINGS: The cardiomediastinal silhouette is within normal limits. Right chest wall infusion port catheter is identified with the distal tip projecting over the superior vena cava. Surgical clips are identified in the left hilar region. Patchy interstitial changes are identified in the left hilar region. There is volume loss in the left lung with subsegmental atelectasis at the left lung base. Remote left-sided rib deformities are noted. The right lung is clear. No pulmonary vascular congestion or pneumothorax. IMPRESSION: Interstitial changes are identified in the left hilar region, improved since prior examinations. Findings most favor posttreatment related changes. Volume loss is noted in the left lung. No right-sided airspace consolidation. Electronically signed by: Kate Urena MD (09/22/2018 12:10 PM) [facility]
== END | disposition home or self-care (01) ==
LOC: RAD 09:55
PROVIDERS: ATTEND Radiology Radiation Oncology
DX: C34.12 Malignant neoplasm of upper lobe, left bronchus or lung (principal); J98.11 Atelectasis; M95.4 Acquired deformity of chest and rib
CPT/HCPCS: 71046

== ENCOUNTER → 2018-10-13 | Outpatient (CLI) | payer OTHER, MEDICARE ==
[2018-10-07 13:53] VITALS: BP 116/72
[~2018-10-13] MED LIST changes: +PRED20TA PO
--- NOTE | 2018-10-13 15:58 | RAD ---
Examination: 2 views of the chest HISTORY: History of cough, hemoptysis. COMPARISON: 09/22/2018 Findings/ impression: Volume loss identified in the left lung with increased airspace opacities identified in the left lower lobe of the lung likely pneumonia or atelectasis or mass with postobstructive atelectasis. Mild elevation of the left hemidiaphragm again identified.. Right-sided Port-A-Cath is identified. Surgical clips project in the left hilar region. Electronically signed by: Severino Chu MD (10/13/2018 3:54 PM) [place] [id number]
== END | disposition home or self-care (01) ==
LOC: RAD 15:29
PROVIDERS: ATTEND Family Medicine
DX: R04.2 Hemoptysis (principal)
CPT/HCPCS: 71046

== ENCOUNTER → 2018-10-27 | Outpatient (CLI) | payer OTHER, MEDICARE ==
[2018-10-07 13:53] VITALS: BP 116/72
[2018-10-27 15:47] LABS: BASO % 1 % (0-3); EOS # 0.1 x10^3/uL (0.0-0.7); EOS % 1 % (0-3); HEMATOCRIT 41.8 % (39.0-53.0); HEMOGLOBIN 13.6 g/dL (13.0-17.5); LYMPH # 0.8 x10^3/uL (1.0-4.8); LYMPH % 12 % (24-48); MEAN CORPUSCULAR HEMOGLOBIN 27 pg (25-35); MEAN CORPUSCULAR HGB CONC 33 g/dL (31-37); MEAN CORPUSCULAR VOLUME 84 fL (79-100); MONO # 0.7 x10^3/uL (0.0-1.1); MONO % 11 % (0-9); NEUT # 4.9 x10^3uL (1.8-7.7); NEUT % 75 % (31-73); PLATELET COUNT 240 x10^3/uL (140-400); RED CELL DISTRIBUTION WIDTH 17.5 % (11.5-14.5); WHITE BLOOD COUNT 6.5 x10^3/uL (4.0-11.0)
[2018-10-27 16:05] LABS: ALBUMIN 3.4 g/dL (3.4-5.0); ALBUMIN/GLOBULIN RATIO 0.8 (1.0-1.7); CALCIUM 9.3 mg/dL (8.5-10.1); CREATININE 1.1 mg/dL (0.7-1.3); GFR 67.6; POTASSIUM 4.3 mmol/L (3.5-5.1); TOTAL BILIRUBIN 0.4 mg/dL (0.2-1.0); TOTAL PROTEIN 7.7 g/dL (6.4-8.2)
== END | disposition home or self-care (01) ==
LOC: LAB 14:53
PROVIDERS: ATTEND Internal Medicine Hematology & Oncology
DX: C34.12 Malignant neoplasm of upper lobe, left bronchus or lung (principal)
CPT/HCPCS: 36415; 80053; 84443; 85025

== ENCOUNTER → 2018-11-03 | Outpatient (CLI) | payer OTHER, MEDICARE ==
[2018-10-28 09:51] VITALS: BP 114/72
--- NOTE | 2018-11-03 16:35 | RAD ---
EXAM: AP View of the chest DATE: 11/03/2018 12:47 PM INDICATION: COUGH, RESPIRATORY INFECTION COMPARISON: 10/13/2018, 09/22/2018 FINDINGS: Leftward mediastinal shift is grossly stable with associated left lung parenchymal opacities. Hyperextension of the right lung, emphysematous change. Associated left hemidiaphragm elevation. Right Port-A-Cath tip projects over the expected mid SVC. Mediastinal surgical clips are seen No pleural effusion or pneumothorax. IMPRESSION: 1. Leftward deviation of the cardiomediastinal silhouette is grossly stable. Associated left lung parenchymal opacities, likely scarring/atelectasis. Electronically signed by: Aashish Zhang MD (11/03/2018 4:32 PM) [facility]
== END | disposition home or self-care (01) ==
LOC: LAB 12:35
PROVIDERS: ATTEND Nurse Practitioner Gerontology
DX: J98.8 Other specified respiratory disorders (principal); J43.9 Emphysema, unspecified; J98.6 Disorders of diaphragm; R93.89 Abnormal findings on diagnostic imaging of other specified body structures
CPT/HCPCS: 71045

== ENCOUNTER 2018-11-04 09:31 | Inpatient (IN) | payer OTHER, MEDICARE ==
[~2018-11-04] VITALS: Ht 182.9 cm; Wt 89.8 kg
[~2018-11-04 09:31] MED LIST changes: -PRED20TA PO
[2018-11-04] MEDS ORDERED: IV NORMAL SALINE 1000ML BAG 1,000 ML IV SCH (10:00)
[2018-11-04] MEDS ORDERED: 0.9 % SOD CHL for STERILE FIELD 10 ML DISP.SYRIN. ONE (10:02)
--- NOTE | 2018-11-04 10:09 | RAD ---
Examination: PORTABLE CHEST 1V History: SHORT OF BREATH AND COUGH Comparison/Correlation: 11/03/2018 portable chest x-ray exam Findings: Frontal view chest was obtained by portable technique. Right internal jugular infusion port catheter tip terminates overlying the superior vena cava. Surgical clips are present involving the medial left mid thoracic level. Relatively less left lung volume is similar to prior exam. Old left rib fractures are noted. Interstitial edema or atelectasis of the left lung base medially is present in the interval. Right lung field is clear. Impression: Left medial lung base interstitial edema or atelectasis is increase in the interval. Electronically signed by: Alin Esquivel MD (11/04/2018 10:06 AM) [id number]
--- NOTE | 2018-11-04 10:13 | PHYS DOC ---
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 Patient had heart rate of 140s and respiratory irritation of 45 while he was at his oncologist office regarding lung cancer routine appointment. She'll complaining of increasing chronic cough for the last 5 days with green and bloody sputum this morning. Patient complaining of increasing chronic shortness of breath also with mild activity. Patient complaining of chest pain during episodes of cough and generalized weakness, sore throat, earache, nasal congestion the last 5 days. Patient denies fever and chills, focal neuro deficit, sick contact. Patient states he started leftover doxycycline 5 days ago and seen by his primary care physician office yesterday and started on doxycycline without improvement of his condition. Review of Systems Review of Systems Constitutional: Denies fever or chills [] Eyes: Denies change in visual acuity, redness, or eye pain [] HENT: Denies nasal congestion or sore throat [] Respiratory: Denies cough or shortness of breath [] Cardiovascular: No additional information not addressed in HPI [] GI: Denies abdominal pain, nausea, vomiting, bloody stools or diarrhea [] : Denies dysuria or hematuria [] Musculoskeletal: Denies back pain or joint pain [] Integument: Denies rash or skin lesions [] Neurologic: Denies headache, focal weakness or sensory changes [] Endocrine: Denies polyuria or polydipsia [] All other systems were reviewed and found to be within normal limits, except as documented in this note. Current Medications Current Medications Current Medications Medications (Trade) Dose Ordered Sig/Tadeo Start Time Stop Time Status Last Admin Dose Admin Albuterol/ Ipratropium (Duoneb) 3 ml 1X ONCE 11/04/18 10:15 11/04/18 10:16 DC 11/04/18 10:04 3 ML Sodium Chloride (NORMAL SALINE FLUSH for STERILE FIELD) 10 ml STK-MED ONCE 11/04/18 10:02 11/04/18 10:03 DC Allergies Allergies Allergies Coded Allergies Type Severity Reaction Last Updated Verified acetaminophen Allergy Intermediate sweating and itching 10/28/18 Yes adhesive tape Allergy Intermediate 10/28/18 Yes oxycodone Allergy Intermediate sweating and itching 10/28/18 Yes paroxetine Adverse Reaction Intermediate diarrhea 10/28/18 Yes Physical Exam Physical Exam Constitutional: Well developed, mild distress, non-toxic appearance. [] HENT: Normocephalic, atraumatic, bilateral external ears normal, oropharynx moist, no oral exudates, nose normal. [] Eyes: PERRLA, EOMI, conjunctiva normal, no discharge. [] Neck: Normal range of motion, no tenderness, supple, no stridor. [] Cardiovascular: Tachycardia, no murmur [] Lungs & Thorax: Bilateral wheezing and decrease of air movement. Abdomen: Bowel sounds normal, soft, no tenderness, no masses, no pulsatile masses. [] Skin: Warm, dry, no erythema, no rash, several large skin graft. [] Back: No tenderness, no CVA tenderness. [] Extremities: No tenderness, no cyanosis, no clubbing, ROM intact, no edema. [] Neurologic: Alert and oriented X 3, normal motor function, normal sensory function, no focal deficits noted. [] Psychologic: Affect normal, judgement normal, mood normal. [] Current Patient Data Vital Signs Vital Signs Date Time Temp Pulse Resp B/P (MAP) Pulse Ox O2 Delivery O2 Flow Rate FiO2 11/04/18 10:32 107 32 140/86 (104) 94 Room Air 11/04/18 09:44 99.3 99.3 Lab Values Laboratory Tests Test 11/04/18 10:30 White Blood Count 6.4 x10^3/uL (4.0-11.0) Red Blood Count 4.70 x10^6/uL (4.30-5.70) Hemoglobin 12.9 g/dL (13.0-17.5) L Hematocrit 39.6 % (39.0-53.0) Mean Corpuscular Volume 84 fL (79-100) Mean Corpuscular Hemoglobin 28 pg (25-35) Mean Corpuscular Hemoglobin Concent 33 g/dL (31-37) Red Cell Distribution Width 17.8 % (11.5-14.5) H Platelet Count 130 x10^3/uL (140-400) L Neutrophils (%) (Auto) 69 % (31-73) Lymphocytes (%) (Auto) 9 % (24-48) L Monocytes (%) (Auto) 18 % (0-9) H Eosinophils (%) (Auto) 3 % (0-3) Basophils (%) (Auto) 1 % (0-3) Neutrophils # (Auto) 4.4 x10^3uL (1.8-7.7) Lymphocytes # (Auto) 0.6 x10^3/uL (1.0-4.8) L Monocytes # (Auto) 1.2 x10^3/uL (0.0-1.1) H Eosinophils # (Auto) 0.2 x10^3/uL (0.0-0.7) Basophils # (Auto) 0.0 x10^3/uL (0.0-0.2) Segmented Neutrophils % 75 % (35-66) H Lymphocytes % 7 % (24-48) L Monocytes % 15 % (0-10) H Eosinophils % 2 % (0-5) Basophils % 1 % (0-3) Platelet Estimate Decreased (ADEQUATE) Large Platelets Occ Giant Platelets Occ D-Dimer (Yudi) 0.50 ug/mlFEU (0.00-0.50) Sodium Level 140 mmol/L (136-145) Potassium Level 3.9 mmol/L (3.5-5.1) Chloride Level 101 mmol/L (98-107) Carbon Dioxide Level 26 mmol/L (21-32) Anion Gap 13 (6-14) Blood Urea Nitrogen 15 mg/dL (8-26) Creatinine 1.2 mg/dL (0.7-1.3) Estimated GFR (Cockcroft-Gault) 61.1 BUN/Creatinine Ratio 13 (6-20) Glucose Level 111 mg/dL (70-99) H Lactic Acid Level 1.4 mmol/L (0.4-2.0) Calcium Level 9.0 mg/dL (8.5-10.1) Total Bilirubin 0.4 mg/dL (0.2-1.0) Aspartate Amino Transferase (AST) 24 U/L (15-37) Alanine Aminotransferase (ALT) 30 U/L (16-63) Alkaline Phosphatase 75 U/L (46-116) Creatine Kinase 87 U/L (39-308) Creatine Kinase MB (Mass) 1.4 ng/mL (0.0-3.6) Creatine Kinase MB Relative Index 1.6 % (0-4) Troponin I Quantitative < 0.017 ng/mL (0.000-0.055) ON-Xbh-Q-Type Natriuretic Peptide 126 pg/mL (0-124) H Total Protein 7.2 g/dL (6.4-8.2) Albumin 3.4 g/dL (3.4-5.0) Albumin/Globulin Ratio 0.9 (1.0-1.7) L Influenza Type A Antigen Negative (NEGATIVE) Influenza Type B Antigen Negative (NEGATIVE) Laboratory Tests 11/04/18 10:30 Laboratory Tests 11/04/18 10:30 EKG EKG EKG interpreted by me. EKG at 0 940 showed sinus tachycardia at rate of 111, left atrial abnormalities, right superior axis deviation, RVH, poor R-wave progress in anteroseptal leads, no acute ST and T-wave abnormalities. Radiology/Procedures Radiology/Procedures [][facility] [address] [place], [place] [id number] IMAGING REPORT Signed PATIENT: DEBBIE SHARIF ACCOUNT: [id number] : 1955 LOCATION: ER AGE: 63 SEX: M EXAM STATUS: REG ER ORD. PHYSICIAN: RAMESH WRIGHT MD REASON: shortness of breath and cough PROCEDURE: PORTABLE CHEST 1V Examination: PORTABLE CHEST 1V History: SHORT OF BREATH AND COUGH Comparison/Correlation: 11/03/2018 portable chest x-ray exam Findings: Frontal view chest was obtained by portable technique. Right internal jugular infusion port catheter tip terminates overlying the superior vena cava. Surgical clips are present involving the medial left mid thoracic level. Relatively less left lung volume is similar to prior exam. Old left rib fractures are noted. Interstitial edema or atelectasis of the left lung base medially is present in the interval. Right lung field is clear. Impression: Left medial lung base interstitial edema or atelectasis is increase in the interval. Electronically signed by: Alin Shaffer MD (11/04/2018 10:06 AM) [id number] DICTATED and SIGNED BY: ALIN SHAFFER MD DATE: 11/04/18 1004 Course & Med Decision Making Course & Med Decision Making Pertinent Labs and Imaging studies reviewed. (See chart for details) Evaluation of patient in ER showed 63-year-old male patient with history of left lung cancer on immunotherapy and cough and congestion and shortness of breath for several days did not get getting better with doxycycline sent from her oncologist office because of tachycardia and tachypnea. Patient had heart rate of 120s at rest. Patient treated with nebulizer treatment and oxygen and felt better. X-ray showed increasing of consolidation in left lung. Patient's oncologist Dr. Garcia was consulted at 1108. accepted admission at 1150. Dragon Disclaimer Dragon Disclaimer This electronic medical record was generated, in whole or in part, using a voice recognition dictation system. Departure Departure Impression: Primary Impression: CAP (community acquired pneumonia) Additional Impressions: Lung cancer SIRS (systemic inflammatory response syndrome) Disposition: 09 ADMITTED INPATIENT (at 1109) Admitting Physician: Char Mueller (accepted admission at [address] Adams. ) Condition: IMPROVED Referrals: Oswaldo ADAMS MD (PCP) Problem Qualifiers Primary Impression: CAP (community acquired pneumonia) Laterality: left Lung location: lower lobe of lung Qualified Codes: J18.1 - Lobar pneumonia, unspecified organism Additional Impressions: Lung cancer Laterality: left Lung location: hilum of lung Qualified Codes: C34.02 - Malignant neoplasm of left main bronchus RAMESH WRIGHT MD Nov 04, 2018 10:13
[2018-11-04] MEDS ORDERED: IPRATRPIUM/ALBUTEROL 0.5/2.5MG 3 ML NEBU. NEB ONE (10:15)
--- NOTE | 2018-11-04 10:31 | EKG ---
[facility] [address] [place] [address] Test Date: 2018-11-04 Test Time: 09:40:38 Pat Name: DEBBIE SHARIF Department: Room: Gender: M Research Associate: : 1955 Requested By: RAMESH WRIGHT Order Number: [id number] Reading MD: Bert Reardon Measurements Intervals Perry Rate: 111 P: 107 SD: 148 QRS: -153 QRSD: 80 T: 117 QT: 320 QTc: 438 Interpretive Statements SINUS TACHYCARDIA LEFT ATRIAL ABNORMALITY QRS(T) CONTOUR ABNORMALITY CONSIDER HIGH LATERAL INFARCT ABNORMAL ECG Electronically Signed On 11-04-2018 11:10:28 [employer] by Bert Reardon
[2018-11-04 10:44] LABS: BASO % 1 % (0-3); EOS # 0.2 x10^3/uL (0.0-0.7); EOS % 3 % (0-3); HEMATOCRIT 39.6 % (39.0-53.0); HEMOGLOBIN 12.9 g/dL (13.0-17.5); LYMPH # 0.6 x10^3/uL (1.0-4.8); LYMPH % 9 % (24-48); MEAN CORPUSCULAR HEMOGLOBIN 28 pg (25-35); MEAN CORPUSCULAR HGB CONC 33 g/dL (31-37); MEAN CORPUSCULAR VOLUME 84 fL (79-100); MONO # 1.2 x10^3/uL (0.0-1.1); NEUT # 4.4 x10^3uL (1.8-7.7); NEUT % 69 % (31-73); PLATELET COUNT 130 x10^3/uL (140-400); RED CELL DISTRIBUTION WIDTH 17.8 % (11.5-14.5); WHITE BLOOD COUNT 6.4 x10^3/uL (4.0-11.0)
[2018-11-04 10:49] LABS: MONO % 18 % (0-9)
[2018-11-04 10:54] LABS: CREATININE 1.2 mg/dL (0.7-1.3); GFR 61.1; POTASSIUM 3.9 mmol/L (3.5-5.1)
[2018-11-04 11:02] LABS: ALBUMIN 3.4 g/dL (3.4-5.0); ALBUMIN/GLOBULIN RATIO 0.9 (1.0-1.7); TOTAL BILIRUBIN 0.4 mg/dL (0.2-1.0); TOTAL PROTEIN 7.2 g/dL (6.4-8.2)
[2018-11-04 11:09] LABS: INFLUENZA A PATIENT NEGATIVE (NEGATIVE); INFLUENZA B PATIENT NEGATIVE (NEGATIVE)
[2018-11-04] MEDS ORDERED: methylPREDNISolone SOD SUCC PF 125 MG/2 ML VIAL. IV ONE (11:15)
[2018-11-04] MEDS ORDERED: cefTRIAXone IV Push 1 GM VIAL. IVP ONE (11:15)
[2018-11-04] MEDS ORDERED: IOHEXOL 350 MG/ML 100 ML VIAL. IV ONE (11:30)
[2018-11-04] MEDS ORDERED: CONTRAST GIVEN. MC PRN (11:30)
--- NOTE | 2018-11-04 12:07 | RAD ---
Examination: CT ANGIOGRAPHY CHEST History: SOA HX: LUNG CA OMNI 350 100ML PRIPOR SENT Comparison/Correlation: 09/23/2018 CTA of the chest Findings: Axial images of chest were obtained following IV contrast according to pulmonary arteriography protocol. Sagittal and coronal reformatted images were provided. MIP images provided. Surgical clips at the left hilum noted. Left hilar mass and surrounding atelectasis is increased since the previous exam. Circumferential encasement of the left lower lobe process is noted. Encasement of left lower lobe pulmonary arterial branch vasculature is present medially. Encasement of left upper lobe pulmonary arterial branch vasculature also is present. Mass and adjacent atelectasis currently measures up to 2 cm x 3 cm x 7.2 cm longitudinal. Increased by 0.3 cm in the axial plane noted. Increased longitudinally by 3 cm noted. Left perihilar surgical clips and fiducial marker noted. Calcified subcarinal lymph node is present. Small hiatal hernia is present. Scarring in the left lung field is present. Patchy nodular infiltrates involving the left upper lung field noted. No suspicious right lung infiltrate or nodule. No pulmonary arterial thromboembolic disease. Partially visualized upper abdomen is unremarkable. Visualized aorta is unremarkable. Impression: No pulmonary arterial thromboembolic disease. Resolution of previously identified right lower lobe pulmonary arterial thromboembolic disease. Increased left hilar mass size. PQRS Compliance Statement: One or more of the following individualized dose reduction techniques were utilized for this examination: 1. Automated exposure control 2. Adjustment of the mA and/or kV according to patient size 3. Use of iterative reconstruction technique Electronically signed by: Alin Esquivel MD (11/04/2018 12:04 PM) [id number]
[2018-11-04 13:01] LABS: % BASOS 1 % (0-3); % EOS 2 % (0-5); % LYMPHS 7 % (24-48); % MONOS 15 % (0-10); % SEGS 75 % (35-66)
[2018-11-04 13:02] LABS: PLT ESTIMATE DECREASED (ADEQUATE)
[2018-11-04 13:08] VITALS: BP 128/92
[2018-11-04] MEDS ORDERED: DOXY100C2 PO (13:39)
[2018-11-04] MEDS: IV NORMAL SALINE 1000ML BAG 1,000 ML IV SCH ×2 (13:52→21:13)
[2018-11-04 15:31] VITALS: BP 124/78
[2018-11-04 19:00] VITALS: BP 130/81
[2018-11-04] MEDS: IPRATRPIUM/ALBUTEROL 0.5/2.5MG 3 ML NEBU. NEB SCH (20:39)
[2018-11-04] MEDS: APIXABAN 5 MG TABLET. PO SCH (21:13)
[2018-11-04] MEDS: ALLOPURINOL 300 MG TABLET. PO SCH (21:44)
[2018-11-04] MEDS: MELOXICAM 7.5 MG TABLET PO SCH (21:44)
[2018-11-04 23:00] VITALS: BP 130/81
--- NOTE | 2018-11-05 01:18 | CONS ---
DATE OF CONSULTATION: 11/04/2018 REQUESTING PHYSICIAN: Dr. Emmanuel Adams. REASON FOR CONSULTATION: Lung cancer on immunotherapy, now admitted for pneumonia. 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 He received chemotherapy with carboplatin and Taxol along with concurrent radiation therapy from 08/19/2018. He completed treatment on 10/07/2018. He then received a CT scan on 09/23/2018 that did not reveal any evidence of disease progression. He was started on consolidation treatment with Imfinzi from 10/28/2018. He receives treatment every 2 weeks. He presented to the office on 11/04/2018 with complaints of worsening shortness of breath and cough productive of yellow-greenish sputum. He was started on oral antibiotics, doxycycline about 5 days prior to admission with no relief. His dyspnea got worse. Hence, he was sent to the Emergency Room. He underwent a chest x-ray on 11/04/2018 which revealed left medial lung base interstitial edema or atelectasis, which has increased. CT angiogram of the chest on 11/04/2018 reveals resolution of previously noted arterial thromboembolic disease in the right lower lobe. Increased left hilar mass size. He denies fevers or chills. He was admitted to [facility] and started on IV antibiotics. PAST MEDICAL HISTORY: Arthritis, back pain, gout. FAMILY HISTORY: Positive for brain cancer in his mother. SOCIAL HISTORY: He has a history of cigarette smoking, but has quit. He has a [id number] smoking history. REVIEW OF SYSTEMS: A 12-point review of system was performed. Pertinent positives are mentioned in the history of present illness. Rest of the system review is negative. PHYSICAL EXAMINATION: GENERAL APPEARANCE: The patient is a 63-year-old gentleman who is in no acute cardiorespiratory distress. VITAL SIGNS: Blood pressure 124/78, temperature 99 degrees, respiratory rate 18, pulse ox is 96. HEAD: Atraumatic, normocephalic. EYES: No icterus. NECK: Supple. CHEST: Bilaterally symmetrical. HEART: S1, S2 normal. ABDOMEN: Soft, nontender. CENTRAL NERVOUS SYSTEM: No focal deficits. LYMPHATICS: No lymphadenopathy. SKIN: No rashes. PSYCHOLOGIC: Mood and affect are appropriate. MUSCULOSKELETAL: No joint effusions. LABORATORY DATA: WBC 6.4, hemoglobin 12.9, platelet count 130, creatinine 1.2. IMPRESSION AND PLAN: 1. 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 He completed chemoradiation with carboplatin and Taxol and he was started on consolidation treatment with Imfinzi on 10/28/2018. His next treatment will be deferred because of pneumonia. I will continue to monitor for toxicities. 2. Pneumonia, not responding to oral antibiotics. I agree to admit and treat him inpatient. I discussed with the ER provider. 3. Pulmonary embolism diagnosed on 09/23/2018. Continue Eliquis. Followup CT angiogram of the chest on 11/04/2018 reveals resolution of pulmonary embolism. NGHIA ALMEIDA MD DR: BELLA/hung JOB#: [id number] / [id number]
[2018-11-05 03:00] VITALS: BP 140/87
[2018-11-05] MEDS: IV NORMAL SALINE 1000ML BAG 1,000 ML IV SCH (03:56)
[2018-11-05 07:00] VITALS: BP 146/84
--- NOTE | 2018-11-05 07:56 | PDOC ---
PROGRESS NOTES Subjective Subjective Patient reports LUO. Cough not troublesome presently. Objective Objective Vital Signs Date Time Temp Pulse Resp B/P (MAP) Pulse Ox O2 Delivery O2 Flow Rate FiO2 11/05/18 03:00 97.9 78 18 140/87 (104) 95 Room Air 97.9 Intake and Output 11/05/18 06:59 Intake Total 2140 ml Balance 2140 ml Intake Oral 1140 ml IV Total 1000 ml # Voids 2 Physical Exam Abdomen: Normal bowel sounds, Soft, No tenderness Heart: Regular rate Extremities: No edema General: Alert, Oriented X3, No acute distress Lungs: Other (BS moderately decreased on left. BS mildly decreased on right with moderate expiratory wheezes. Cough with deep breath) Assessment Assessment Problems Medical Problems: (1) CAP (community acquired pneumonia) Status: Acute (2) SIRS (systemic inflammatory response syndrome) Status: Acute Plan Plan of Care 1. AE COPD with possible pneumonia - no definite infiltrate seen on CT chest. Will treat with abx, nebs and Solumedrol. No hypoxia on room air. 2. squamous cell lung cancer - s/p XRT and chemotx, now on immunotherapy. CT chest shows some enlargement of left hilar mass and atelectasis surrounding. Dr Garcia following. 3. hx PE - resolved on CT chest. Continue Eliquis. Comment Review of Relevant I have reviewed the following items kassi (where applicable) has been applied. Labs Laboratory Tests Test 11/04/18 10:30 White Blood Count 6.4 x10^3/uL (4.0-11.0) Red Blood Count 4.70 x10^6/uL (4.30-5.70) Hemoglobin 12.9 g/dL (13.0-17.5) Hematocrit 39.6 % (39.0-53.0) Mean Corpuscular Volume 84 fL (79-100) Mean Corpuscular Hemoglobin 28 pg (25-35) Mean Corpuscular Hemoglobin Concent 33 g/dL (31-37) Red Cell Distribution Width 17.8 % (11.5-14.5) Platelet Count 130 x10^3/uL (140-400) Neutrophils (%) (Auto) 69 % (31-73) Lymphocytes (%) (Auto) 9 % (24-48) Monocytes (%) (Auto) 18 % (0-9) Eosinophils (%) (Auto) 3 % (0-3) Basophils (%) (Auto) 1 % (0-3) Neutrophils # (Auto) 4.4 x10^3uL (1.8-7.7) Lymphocytes # (Auto) 0.6 x10^3/uL (1.0-4.8) Monocytes # (Auto) 1.2 x10^3/uL (0.0-1.1) Eosinophils # (Auto) 0.2 x10^3/uL (0.0-0.7) Basophils # (Auto) 0.0 x10^3/uL (0.0-0.2) Segmented Neutrophils % 75 % (35-66) Lymphocytes % 7 % (24-48) Monocytes % 15 % (0-10) Eosinophils % 2 % (0-5) Basophils % 1 % (0-3) Platelet Estimate Decreased (ADEQUATE) Large Platelets Occ Giant Platelets Occ D-Dimer (Yudi) 0.50 ug/mlFEU (0.00-0.50) Sodium Level 140 mmol/L (136-145) Potassium Level 3.9 mmol/L (3.5-5.1) Chloride Level 101 mmol/L (98-107) Carbon Dioxide Level 26 mmol/L (21-32) Anion Gap 13 (6-14) Blood Urea Nitrogen 15 mg/dL (8-26) Creatinine 1.2 mg/dL (0.7-1.3) Estimated GFR (Cockcroft-Gault) 61.1 BUN/Creatinine Ratio 13 (6-20) Glucose Level 111 mg/dL (70-99) Lactic Acid Level 1.4 mmol/L (0.4-2.0) Calcium Level 9.0 mg/dL (8.5-10.1) Total Bilirubin 0.4 mg/dL (0.2-1.0) Aspartate Amino Transf (AST/SGOT) 24 U/L (15-37) Alanine Aminotransferase (ALT/SGPT) 30 U/L (16-63) Alkaline Phosphatase 75 U/L (46-116) Creatine Kinase 87 U/L (39-308) Creatine Kinase MB (Mass) 1.4 ng/mL (0.0-3.6) Creatine Kinase MB Relative Index 1.6 % (0-4) Troponin I Quantitative < 0.017 ng/mL (0.000-0.055) HO-Ofy-H-Type Natriuretic Peptide 126 pg/mL (0-124) Total Protein 7.2 g/dL (6.4-8.2) Albumin 3.4 g/dL (3.4-5.0) Albumin/Globulin Ratio 0.9 (1.0-1.7) Influenza Type A Antigen Negative (NEGATIVE) Influenza Type B Antigen Negative (NEGATIVE) Laboratory Tests Test 11/04/18 10:30 White Blood Count 6.4 x10^3/uL (4.0-11.0) Red Blood Count 4.70 x10^6/uL (4.30-5.70) Hemoglobin 12.9 g/dL (13.0-17.5) Hematocrit 39.6 % (39.0-53.0) Mean Corpuscular Volume 84 fL (79-100) Mean Corpuscular Hemoglobin 28 pg (25-35) Mean Corpuscular Hemoglobin Concent 33 g/dL (31-37) Red Cell Distribution Width 17.8 % (11.5-14.5) Platelet Count 130 x10^3/uL (140-400) Neutrophils (%) (Auto) 69 % (31-73) Lymphocytes (%) (Auto) 9 % (24-48) Monocytes (%) (Auto) 18 % (0-9) Eosinophils (%) (Auto) 3 % (0-3) Basophils (%) (Auto) 1 % (0-3) Neutrophils # (Auto) 4.4 x10^3uL (1.8-7.7) Lymphocytes # (Auto) 0.6 x10^3/uL (1.0-4.8) Monocytes # (Auto) 1.2 x10^3/uL (0.0-1.1) Eosinophils # (Auto) 0.2 x10^3/uL (0.0-0.7) Basophils # (Auto) 0.0 x10^3/uL (0.0-0.2) Segmented Neutrophils % 75 % (35-66) Lymphocytes % 7 % (24-48) Monocytes % 15 % (0-10) Eosinophils % 2 % (0-5) Basophils % 1 % (0-3) Platelet Estimate Decreased (ADEQUATE) Large Platelets Occ Giant Platelets Occ D-Dimer (Yudi) 0.50 ug/mlFEU (0.00-0.50) Sodium Level 140 mmol/L (136-145) Potassium Level 3.9 mmol/L (3.5-5.1) Chloride Level 101 mmol/L (98-107) Carbon Dioxide Level 26 mmol/L (21-32) Anion Gap 13 (6-14) Blood Urea Nitrogen 15 mg/dL (8-26) Creatinine 1.2 mg/dL (0.7-1.3) Estimated GFR (Cockcroft-Gault) 61.1 BUN/Creatinine Ratio 13 (6-20) Glucose Level 111 mg/dL (70-99) Lactic Acid Level 1.4 mmol/L (0.4-2.0) Calcium Level 9.0 mg/dL (8.5-10.1) Total Bilirubin 0.4 mg/dL (0.2-1.0) Aspartate Amino Transf (AST/SGOT) 24 U/L (15-37) Alanine Aminotransferase (ALT/SGPT) 30 U/L (16-63) Alkaline Phosphatase 75 U/L (46-116) Creatine Kinase 87 U/L (39-308) Creatine Kinase MB (Mass) 1.4 ng/mL (0.0-3.6) Creatine Kinase MB Relative Index 1.6 % (0-4) Troponin I Quantitative < 0.017 ng/mL (0.000-0.055) NX-Wka-M-Type Natriuretic Peptide 126 pg/mL (0-124) Total Protein 7.2 g/dL (6.4-8.2) Albumin 3.4 g/dL (3.4-5.0) Albumin/Globulin Ratio 0.9 (1.0-1.7) Influenza Type A Antigen Negative (NEGATIVE) Influenza Type B Antigen Negative (NEGATIVE) Medications Current Medications Sodium Chloride 1,000 ml @ 1,000 mls/hr Q1H IV Last administered on 11/04/18at 10:39; Start 11/04/18 at 10:00; Stop 11/04/18 at 10:59; Status DC Albuterol/ Ipratropium (Duoneb) 3 ml 1X ONCE NEB Last administered on at 10:04; Start 11/04/18 at 10:15; Stop 11/04/18 at 10:16; Status DC Sodium Chloride (NORMAL SALINE FLUSH for STERILE FIELD) 10 ml STK-MED ONCE .ROUTE ; Start 11/04/18 at 10:02; Stop 11/04/18 at 10:03; Status DC Methylprednisolone Sodium Succinate (SOLU-Medrol 125MG VIAL) 125 mg 1X ONCE IV Last administered on 11/04/18at 11:55; Start 11/04/18 at 11:15; Stop 11/04/18 at 11:17; Status DC Ceftriaxone Sodium (Rocephin) 1 gm 1X ONCE IVP Last administered on 11/04/18at 12:00; Start 11/04/18 at 11:15; Stop 11/04/18 at 11:17; Status DC Iohexol (Omnipaque 350 Mg/ml) 100 ml 1X ONCE IV Last administered on 11/04/18at 11:26; Start 11/04/18 at 11:30; Stop 11/04/18 at 11:31; Status DC Info (CONTRAST GIVEN -- Rx MONITORING) 1 each PRN DAILY PRN MC SEE COMMENTS; Start 11/04/18 at 11:30; Stop 11/06/18 at 11:29 Sodium Chloride 1,000 ml @ 125 mls/hr Q8H IV Last administered on 11/05/18at 03: 56; Start 11/04/18 at 11:56; Stop 11/05/18 at 11:55 Allopurinol (Zyloprim) 300 mg DAILY PO ; Start 11/05/18 at 09:00; Stop 11/05/18 at 09:00; Status DC Apixaban (Eliquis) 5 mg BID PO Last administered on 11/04/18at 21:13; Start at 21:00 Meloxicam (Mobic) 15 mg DAILY PO ; Start 11/05/18 at 09:00; Stop 11/05/18 at 09:00 ; Status DC Albuterol/ Ipratropium (Duoneb) 3 ml RTQID NEB Last administered on 11/04/18at 20 :39; Start 11/04/18 at 17:30 Ceftriaxone Sodium (Rocephin) 1 gm Q24H IVP ; Start 11/05/18 at 11:00 Allopurinol (Zyloprim) 300 mg HS PO Last administered on 11/04/18at 21:44; Start 11/04/18 at 22:00 Meloxicam (Mobic) 15 mg HS PO Last administered on 11/04/18at 21:44; Start at 22:00 Active Scripts Active Eliquis (Apixaban) 5 Mg Tablet 5 Mg PO BID Reported Doxycycline Hyclate 100 Mg Capsule 1 Cap PO BID Proair Hfa Inhaler (Albuterol Sulfate) 8.5 Gm Hfa.aer.ad 1 Puff INH PRN Q6HRS PRN Allopurinol 300 Mg Tablet 300 Mg PO DAILY Meloxicam 15 Mg Tablet 15 Mg PO DAILY Spiriva (Tiotropium [place]) 18 Mcg Cap.w.dev 2 Inh IH DAILY Vitals/I & O Vital Sign - Last 24 Hours 11/04/18 11/04/18 11/04/18 11/04/18 09:44 10:07 10:32 11:43 Temp 99.3 99.3 Pulse 106 107 97 Resp 44 32 40 B/P (MAP) 136/83 (100) 140/86 (104) 159/79 (105) Pulse Ox 96 95 94 O2 Delivery Room Air Room Air Room Air Room Air 11/04/18 11/04/18 11/04/18 11/04/18 13:08 14:03 15:31 19:00 Temp 98.0 99.0 98.2 98.0 99.0 98.2 Pulse 98 97 91 Resp 20 18 18 B/P (MAP) 128/92 (104) 124/78 (93) 130/81 (97) Pulse Ox 93 96 96 O2 Delivery Room Air Room Air Room Air Room Air 11/04/18 11/04/18 11/04/18 11/05/18 20:00 20:42 23:00 03:00 Temp 98.6 97.9 98.6 97.9 Pulse 96 78 Resp 18 18 B/P (MAP) 130/81 (97) 140/87 (104) Pulse Ox 97 95 95 O2 Delivery Room Air Room Air Room Air Room Air Intake and Output 11/04/18 11/04/18 11/05/18 14:59 22:59 06:59 Intake Total 1000 ml 200 ml 940 ml Balance 1000 ml 200 ml 940 ml BRENT RICHARDSON MD Nov 05, 2018 07:56
[2018-11-05] MEDS: IPRATRPIUM/ALBUTEROL 0.5/2.5MG 3 ML NEBU. NEB SCH ×4 (08:01→20:45)
[2018-11-05] MEDS: BUDESONIDE 0.5 MG/2 ML NEBU. NEB SCH ×2 (08:02→20:43)
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
[2018-11-05] MEDS ORDERED: AZITHROMYCIN 250 MG TABLET. PO ONE (09:00)
[2018-11-05] MEDS ORDERED: NON FORMULARY ITEM (Tiotropium Bromide (Spiriva) 2 INH) IH SCH (09:00)
[2018-11-05] MEDS ORDERED: ALLOPURINOL 300 MG TABLET. PO SCH (09:00)
[2018-11-05] MEDS ORDERED: MELOXICAM 7.5 MG TABLET PO SCH (09:00)
[2018-11-05] MEDS: APIXABAN 5 MG TABLET. PO SCH ×2 (09:13→21:30)
[2018-11-05] MEDS: methylPREDNISolone SOD SUCC PF 125 MG/2 ML VIAL. IV SCH ×3 (09:17→21:31)
[2018-11-05 11:00] VITALS: BP 129/79
--- NOTE | 2018-11-05 11:09 | PDOC ---
PULMONARY PROGRESS NOTES Vitals Vital Signs Date Time Temp Pulse Resp B/P (MAP) Pulse Ox O2 Delivery O2 Flow Rate FiO2 11/05/18 08:02 96 Room Air 11/05/18 07:00 97.7 77 18 146/84 (104) 97.7 Labs Laboratory Tests Test 11/04/18 10:30 White Blood Count 6.4 x10^3/uL (4.0-11.0) Red Blood Count 4.70 x10^6/uL (4.30-5.70) Hemoglobin 12.9 g/dL (13.0-17.5) Hematocrit 39.6 % (39.0-53.0) Mean Corpuscular Volume 84 fL (79-100) Mean Corpuscular Hemoglobin 28 pg (25-35) Mean Corpuscular Hemoglobin Concent 33 g/dL (31-37) Red Cell Distribution Width 17.8 % (11.5-14.5) Platelet Count 130 x10^3/uL (140-400) Neutrophils (%) (Auto) 69 % (31-73) Lymphocytes (%) (Auto) 9 % (24-48) Monocytes (%) (Auto) 18 % (0-9) Eosinophils (%) (Auto) 3 % (0-3) Basophils (%) (Auto) 1 % (0-3) Neutrophils # (Auto) 4.4 x10^3uL (1.8-7.7) Lymphocytes # (Auto) 0.6 x10^3/uL (1.0-4.8) Monocytes # (Auto) 1.2 x10^3/uL (0.0-1.1) Eosinophils # (Auto) 0.2 x10^3/uL (0.0-0.7) Basophils # (Auto) 0.0 x10^3/uL (0.0-0.2) Segmented Neutrophils % 75 % (35-66) Lymphocytes % 7 % (24-48) Monocytes % 15 % (0-10) Eosinophils % 2 % (0-5) Basophils % 1 % (0-3) Platelet Estimate Decreased (ADEQUATE) Large Platelets Occ Giant Platelets Occ D-Dimer (Yudi) 0.50 ug/mlFEU (0.00-0.50) Sodium Level 140 mmol/L (136-145) Potassium Level 3.9 mmol/L (3.5-5.1) Chloride Level 101 mmol/L (98-107) Carbon Dioxide Level 26 mmol/L (21-32) Anion Gap 13 (6-14) Blood Urea Nitrogen 15 mg/dL (8-26) Creatinine 1.2 mg/dL (0.7-1.3) Estimated GFR (Cockcroft-Gault) 61.1 BUN/Creatinine Ratio 13 (6-20) Glucose Level 111 mg/dL (70-99) Lactic Acid Level 1.4 mmol/L (0.4-2.0) Calcium Level 9.0 mg/dL (8.5-10.1) Total Bilirubin 0.4 mg/dL (0.2-1.0) Aspartate Amino Transf (AST/SGOT) 24 U/L (15-37) Alanine Aminotransferase (ALT/SGPT) 30 U/L (16-63) Alkaline Phosphatase 75 U/L (46-116) Creatine Kinase 87 U/L (39-308) Creatine Kinase MB (Mass) 1.4 ng/mL (0.0-3.6) Creatine Kinase MB Relative Index 1.6 % (0-4) Troponin I Quantitative < 0.017 ng/mL (0.000-0.055) LV-Fhv-C-Type Natriuretic Peptide 126 pg/mL (0-124) Total Protein 7.2 g/dL (6.4-8.2) Albumin 3.4 g/dL (3.4-5.0) Albumin/Globulin Ratio 0.9 (1.0-1.7) Influenza Type A Antigen Negative (NEGATIVE) Influenza Type B Antigen Negative (NEGATIVE) Medications Active Scripts Medications Dose Route/Sig Max Daily Dose Days Date Category Doxycycline Hyclate 100 Mg Capsule 1 Cap PO BID 11/04/18 Reported Eliquis (Apixaban) 5 Mg Tablet 5 Mg PO BID 09/24/18 Rx Proair Hfa Inhaler (Albuterol Sulfate) 8.5 Gm Hfa.aer.ad 1 Puff INH PRN Q6HRS PRN 07/14/18 Reported Allopurinol 300 Mg Tablet 300 Mg PO DAILY 07/23/17 Reported Meloxicam 15 Mg Tablet 15 Mg PO DAILY 07/23/17 Reported Spiriva (Tiotropium [place]) 18 Mcg Cap.w.dev 2 Inh IH DAILY 07/23/17 Reported Impression . DICTATED AECOPD SEE ORDERS THANKS CHEST Impression: No pulmonary arterial thromboembolic disease. Resolution of previously identified right lower lobe pulmonary arterial thromboembolic disease. Increased left hilar mass size. MELVI RIGGS MD Nov 05, 2018 11:09
--- NOTE | 2018-11-05 11:36 | NUR ---
SW following. Discussed with RN, pt is from home indp with . No SW needs at this time. SW will continue to follow.
[2018-11-05] MEDS: cefTRIAXone IV Push 1 GM VIAL. IVP SCH (12:00)
[2018-11-05 15:00] VITALS: BP 115/65
[2018-11-05 19:15] VITALS: BP 133/75
[2018-11-05] MEDS: MELOXICAM 7.5 MG TABLET PO SCH (21:30)
[2018-11-05] MEDS: BENZOCAINE/MENTHOL LOZENGE. PO PRN (21:30)
[2018-11-05] MEDS: ALLOPURINOL 300 MG TABLET. PO SCH (21:32)
[2018-11-05 23:55] VITALS: BP 119/61
--- NOTE | 2018-11-06 00:24 | CONS ---
DATE OF CONSULTATION: 11/05/2018 ATTENDING PHYSICIAN: Char Mueller MD. REASON FOR CONSULTATION: The patient is seen in pulmonary consultation at the request of Dr. Mueller for increasing shortness of air. HISTORY OF PRESENT ILLNESS: The patient is a 63-year-old that normally follows Dr. Mays for stage T4N0M0 squamous cell carcinoma of the left upper lobe. He received complete of chemoradiation with carboplatin and Taxol, was started on treatment with Imfinzi. The patient presents now with increasing shortness of breath, cough, wheeze. He was seen in Dr. Garcia's office and was significantly short of breath. As a consequence, the additional treatment was deferred. He had CT angiogram for PE protocol. There was no evidence of pulmonary emboli. There was resolution of previous right lower lobe pulmonary emboli. There was an increased left hilar mass. Otherwise, there were no infiltrates or consolidations. PAST MEDICAL HISTORY: 1. Squamous cell carcinoma stage 3A T4N0M0, status post chemoradiation as described above. 2. Severe COPD with an FEV1 of 1.56 liters at 39% of predicted. 3. Tobacco dependence, in remission. PAST SURGICAL HISTORY: No recent major surgeries. He has had some previous skin graft for pierce in the past. REVIEW OF SYSTEMS: As indicated above, otherwise the 10-point system was reviewed and negative. SOCIAL HISTORY: He quit tobacco approximately a month or two ago. ALLERGIES: ACETAMINOPHEN, ADHESIVE TAPE, OXYCODONE, AND PAROXETINE. MEDICATIONS: List was reviewed. PHYSICAL EXAMINATION: GENERAL: The patient was in no respiratory distress. VITAL SIGNS: Stable. O2 saturation was greater than 92%, currently on room air. HEENT: Eyes: The sclerae were nonicteric. NECK: Jugular venous distention was not elevated. No lymphadenopathy. CHEST: Full expansion. LUNGS: Adequate airway flow with no wheezes. CARDIOVASCULAR: Regular rate and rhythm with S1, S2, no S3. ABDOMEN: Soft, nontender, nondistended. EXTREMITIES: No clubbing, cyanosis or edema. NEUROLOGIC: The patient was awake, alert, following commands. A detailed neuro exam was not performed. LABORATORY DATA: Serology for influenza was negative. Electrolytes were noted. White count was normal. Hemoglobin and hematocrit noted. IMPRESSION: 1. Progressive dyspnea secondary to acute exacerbation of chronic obstructive pulmonary disease. 2. 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 He was started on consolidation treatment with Imfinzi on 10/28/2018. The next treatment was deferred because of acute exacerbation of chronic obstructive pulmonary disease and possible pneumonia. 3. PE diagnosed on 09/23/2018. Continue Eliquis. Current CT angiogram reveals no new pulmonary embolism. 4. Tobacco dependence, in remission. 5. Severe chronic obstructive pulmonary disease. 6. Continue steroids, antibiotics. 7. Nebulized treatments. 8. Follow Dr. Garcia's input. 9. Continue Eliquis. I do appreciate the privilege in sharing in the patient's care. MELVI RIGGS MD DR: KEL/hung JOB#: [id number] / [id number]
[2018-11-06 03:30] VITALS: BP_SYST 123; BP_SYST 136; BP_DIAS 69; BP_DIAS 76
[2018-11-06] MEDS: methylPREDNISolone SOD SUCC PF 125 MG/2 ML VIAL. IV SCH ×3 (06:38→21:10)
[2018-11-06 07:20] VITALS: BP 132/79
[2018-11-06] MEDS: ACETAMINOPHEN 325 MG TABLET. PO PRN ×2 (07:26→21:09)
[2018-11-06] MEDS: IPRATRPIUM/ALBUTEROL 0.5/2.5MG 3 ML NEBU. NEB SCH ×4 (08:06→20:22)
[2018-11-06] MEDS: BUDESONIDE 0.5 MG/2 ML NEBU. NEB SCH ×2 (08:06→20:23)
[2018-11-06] MEDS: AZITHROMYCIN 250 MG TABLET. PO SCH (08:21)
[2018-11-06] MEDS: APIXABAN 5 MG TABLET. PO SCH ×2 (08:21→21:08)
--- NOTE | 2018-11-06 08:32 | PDOC ---
PROGRESS NOTES Subjective Subjective Patient doesn't feel breathing is much better yet. Still having dry cough and LUO. Does feel his heart is beating quickly at present but denies chest pain. Objective Objective Vital Signs Date Time Temp Pulse Resp B/P (MAP) Pulse Ox O2 Delivery O2 Flow Rate FiO2 11/06/18 08:07 97 Room Air 11/06/18 07:20 97.8 81 18 132/79 (96) 97.8 Intake and Output 11/06/18 07:00 Intake Total 1700 ml Balance 1700 ml Intake Oral 1700 ml # Voids 5 # Bowel Movements 1 Physical Exam Abdomen: Normal bowel sounds, Soft, No tenderness Heart: Regular rate (tachycardic) Extremities: No edema General: Alert, Oriented X3, No acute distress Lungs: Other (BS decreased throughout, scant expiratory wheezes on R.) Assessment Assessment Problems Medical Problems: (1) CAP (community acquired pneumonia) Status: Acute (2) SIRS (systemic inflammatory response syndrome) Status: Acute Plan Plan of Care 1. AE COPD - patient continues without hypoxia. Exam improved from yesterday. Continue Solumedrol, nebs and abx for possible CAP. 2. tachycardia - continues intermittently. Patient without chest pain but aware of the tachycardia when it occurs. Has happened with exertion but presently happening at rest. TSH was WNL during hospitalization last month. Will consult Cardiology for help with further evaluation and treatment. 3. Squamous cell lung cancer - immunotx presently on hold due to patient's hospitalization. 4. hx PE - stable, continue Eliquis. Comment Review of Relevant I have reviewed the following items kassi (where applicable) has been applied. Labs Laboratory Tests Test 11/04/18 10:30 White Blood Count 6.4 x10^3/uL (4.0-11.0) Red Blood Count 4.70 x10^6/uL (4.30-5.70) Hemoglobin 12.9 g/dL (13.0-17.5) Hematocrit 39.6 % (39.0-53.0) Mean Corpuscular Volume 84 fL (79-100) Mean Corpuscular Hemoglobin 28 pg (25-35) Mean Corpuscular Hemoglobin Concent 33 g/dL (31-37) Red Cell Distribution Width 17.8 % (11.5-14.5) Platelet Count 130 x10^3/uL (140-400) Neutrophils (%) (Auto) 69 % (31-73) Lymphocytes (%) (Auto) 9 % (24-48) Monocytes (%) (Auto) 18 % (0-9) Eosinophils (%) (Auto) 3 % (0-3) Basophils (%) (Auto) 1 % (0-3) Neutrophils # (Auto) 4.4 x10^3uL (1.8-7.7) Lymphocytes # (Auto) 0.6 x10^3/uL (1.0-4.8) Monocytes # (Auto) 1.2 x10^3/uL (0.0-1.1) Eosinophils # (Auto) 0.2 x10^3/uL (0.0-0.7) Basophils # (Auto) 0.0 x10^3/uL (0.0-0.2) Segmented Neutrophils % 75 % (35-66) Lymphocytes % 7 % (24-48) Monocytes % 15 % (0-10) Eosinophils % 2 % (0-5) Basophils % 1 % (0-3) Platelet Estimate Decreased (ADEQUATE) Large Platelets Occ Giant Platelets Occ D-Dimer (Yudi) 0.50 ug/mlFEU (0.00-0.50) Sodium Level 140 mmol/L (136-145) Potassium Level 3.9 mmol/L (3.5-5.1) Chloride Level 101 mmol/L (98-107) Carbon Dioxide Level 26 mmol/L (21-32) Anion Gap 13 (6-14) Blood Urea Nitrogen 15 mg/dL (8-26) Creatinine 1.2 mg/dL (0.7-1.3) Estimated GFR (Cockcroft-Gault) 61.1 BUN/Creatinine Ratio 13 (6-20) Glucose Level 111 mg/dL (70-99) Lactic Acid Level 1.4 mmol/L (0.4-2.0) Calcium Level 9.0 mg/dL (8.5-10.1) Total Bilirubin 0.4 mg/dL (0.2-1.0) Aspartate Amino Transf (AST/SGOT) 24 U/L (15-37) Alanine Aminotransferase (ALT/SGPT) 30 U/L (16-63) Alkaline Phosphatase 75 U/L (46-116) Creatine Kinase 87 U/L (39-308) Creatine Kinase MB (Mass) 1.4 ng/mL (0.0-3.6) Creatine Kinase MB Relative Index 1.6 % (0-4) Troponin I Quantitative < 0.017 ng/mL (0.000-0.055) KA-Mwn-R-Type Natriuretic Peptide 126 pg/mL (0-124) Total Protein 7.2 g/dL (6.4-8.2) Albumin 3.4 g/dL (3.4-5.0) Albumin/Globulin Ratio 0.9 (1.0-1.7) Influenza Type A Antigen Negative (NEGATIVE) Influenza Type B Antigen Negative (NEGATIVE) Microbiology 11/04/18 Blood Culture - Preliminary, Resulted NO GROWTH AFTER 1 DAY Medications Current Medications Sodium Chloride 1,000 ml @ 1,000 mls/hr Q1H IV Last administered on 11/04/18at 10:39; Start 11/04/18 at 10:00; Stop 11/04/18 at 10:59; Status DC Albuterol/ Ipratropium (Duoneb) 3 ml 1X ONCE NEB Last administered on at 10:04; Start 11/04/18 at 10:15; Stop 11/04/18 at 10:16; Status DC Sodium Chloride (NORMAL SALINE FLUSH for STERILE FIELD) 10 ml STK-MED ONCE .ROUTE ; Start 11/04/18 at 10:02; Stop 11/04/18 at 10:03; Status DC Methylprednisolone Sodium Succinate (SOLU-Medrol 125MG VIAL) 125 mg 1X ONCE IV Last administered on 11/04/18at 11:55; Start 11/04/18 at 11:15; Stop 11/04/18 at 11:17; Status DC Ceftriaxone Sodium (Rocephin) 1 gm 1X ONCE IVP Last administered on 11/04/18at 12:00; Start 11/04/18 at 11:15; Stop 11/04/18 at 11:17; Status DC Iohexol (Omnipaque 350 Mg/ml) 100 ml 1X ONCE IV Last administered on 11/04/18at 11:26; Start 11/04/18 at 11:30; Stop 11/04/18 at 11:31; Status DC Info (CONTRAST GIVEN -- Rx MONITORING) 1 each PRN DAILY PRN MC SEE COMMENTS; Start 11/04/18 at 11:30; Stop 11/06/18 at 11:29 Sodium Chloride 1,000 ml @ 125 mls/hr Q8H IV Last administered on 11/05/18at 03: 56; Start 11/04/18 at 11:56; Stop 11/05/18 at 07:53; Status DC Allopurinol (Zyloprim) 300 mg DAILY PO ; Start 11/05/18 at 09:00; Stop 11/05/18 at 09:00; Status DC Apixaban (Eliquis) 5 mg BID PO Last administered on 11/05/18at 21:30; Start at 21:00 Meloxicam (Mobic) 15 mg DAILY PO ; Start 11/05/18 at 09:00; Stop 11/05/18 at 09:00 ; Status DC Albuterol/ Ipratropium (Duoneb) 3 ml RTQID NEB Last administered on 11/06/18at 08 :06; Start 11/04/18 at 17:30 Ceftriaxone Sodium (Rocephin) 1 gm Q24H IVP Last administered on 11/05/18at 12:00 ; Start 11/05/18 at 11:00 Allopurinol (Zyloprim) 300 mg HS PO Last administered on 11/05/18at 21:32; Start 11/04/18 at 22:00 Meloxicam (Mobic) 15 mg HS PO Last administered on 11/05/18at 21:30; Start at 22:00 Non-Formulary Medication (Tiotropium [place] (Spiriva)) 2 inh DAILY IH ; Start 11/05/18 at 09:00; Status UNV Methylprednisolone Sodium Succinate (SOLU-Medrol 125MG VIAL) 60 mg Q8HRS IV Last administered on 11/06/18at 06:38; Start 11/05/18 at 09:00 Budesonide (Pulmicort) 0.5 mg RTBID NEB Last administered on 11/06/18at 08:06; Start 11/05/18 at 09:00 Azithromycin (Zithromax) 500 mg 1X ONCE PO Last administered on 11/05/18at 09:15 ; Start 11/05/18 at 09:00; Stop 11/05/18 at 09:01; Status DC Azithromycin (Zithromax) 250 mg DAILY PO ; Start 11/06/18 at 09:00 Throat Lozenges (Cepacol Sore Throat Lozenge) 1 bandar PRN Q4HRS PRN PO SORE THROAT Last administered on 11/05/18at 21:30; Start 11/05/18 at 20:00 Acetaminophen (Tylenol) 650 mg PRN Q6HRS PRN PO MILD PAIN / TEMP Last administered on 11/06/18at 07:26; Start 11/06/18 at 07:30 Active Scripts Active Eliquis (Apixaban) 5 Mg Tablet 5 Mg PO BID Reported Doxycycline Hyclate 100 Mg Capsule 1 Cap PO BID Proair Hfa Inhaler (Albuterol Sulfate) 8.5 Gm Hfa.aer.ad 1 Puff INH PRN Q6HRS PRN Allopurinol 300 Mg Tablet 300 Mg PO DAILY Meloxicam 15 Mg Tablet 15 Mg PO DAILY Spiriva (Tiotropium [place]) 18 Mcg Cap.w.dev 2 Inh IH DAILY Vitals/I & O Vital Sign - Last 24 Hours 11/05/18 11/05/18 11/05/18 11/05/18 11:00 11:54 15:00 15:45 Temp 98.1 97.7 98.1 97.7 Pulse 104 102 Resp 18 16 B/P (MAP) 129/79 (96) 115/65 (82) Pulse Ox 95 97 97 O2 Delivery Room Air Room Air Room Air Room Air 11/05/18 11/05/18 11/05/18 11/05/18 19:15 20:00 20:36 20:46 Temp 97.5 97.5 Pulse 102 Resp 20 B/P (MAP) 133/75 (94) Pulse Ox 95 95 98 O2 Delivery Room Air Room Air Room Air Room Air 11/05/18 11/06/18 11/06/18 11/06/18 23:55 03:30 07:20 08:07 Temp 97.9 98.0 97.8 97.9 98.0 97.8 Pulse 92 82 81 Resp 18 18 18 B/P (MAP) 119/61 (80) 136/76 (96) 132/79 (96) Pulse Ox 93 93 94 97 O2 Delivery Room Air Room Air Room Air Room Air Intake and Output 11/05/18 11/05/18 11/06/18 15:00 23:00 07:00 Intake Total 640 ml 550 ml 510 ml Balance 640 ml 550 ml 510 ml BRENT RICHARDSON MD Nov 06, 2018 08:32
--- NOTE | 2018-11-06 09:05 | PDOC ---
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 ROS - has dyspnea and tachycardia Objective Objective Vital Signs Date Time Temp Pulse Resp B/P (MAP) Pulse Ox O2 Delivery O2 Flow Rate FiO2 11/06/18 08:07 97 Room Air 11/06/18 07:20 97.8 81 18 132/79 (96) 97.8 Intake and Output 11/06/18 07:00 Intake Total 1700 ml Balance 1700 ml Intake Oral 1700 ml # Voids 5 # Bowel Movements 1 Physical Exam Heart: Normal S1, Normal S2 General: Alert, Oriented X3, No acute distress Lungs: Clear to auscultation Neuro: Normal speech Psych/Mental Status: Mental status NL Assessment Assessment Problems Medical Problems: (1) CAP (community acquired pneumonia) Status: Acute (2) SIRS (systemic inflammatory response syndrome) Status: Acute IMPRESSION AND PLAN: 1. 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 He completed chemoradiation with carboplatin and Taxol and he was started on consolidation treatment with Imfinzi on 10/28/2018. His next treatment will be deferred because of pneumonia. I will continue to monitor for toxicities. 2. Pneumonia, not responding to oral antibiotics. 3. Pulmonary embolism diagnosed on 09/23/2018. Continue Eliquis. Followup CT angiogram of the chest on 11/04/2018 reveals resolution of pulmonary embolism. 4. Dyspnea due to COPD. Appreciate pulm consult. Comment Review of Relevant I have reviewed the following items kassi (where applicable) has been applied. Labs Laboratory Tests Test 11/04/18 10:30 White Blood Count 6.4 x10^3/uL (4.0-11.0) Red Blood Count 4.70 x10^6/uL (4.30-5.70) Hemoglobin 12.9 g/dL (13.0-17.5) Hematocrit 39.6 % (39.0-53.0) Mean Corpuscular Volume 84 fL (79-100) Mean Corpuscular Hemoglobin 28 pg (25-35) Mean Corpuscular Hemoglobin Concent 33 g/dL (31-37) Red Cell Distribution Width 17.8 % (11.5-14.5) Platelet Count 130 x10^3/uL (140-400) Neutrophils (%) (Auto) 69 % (31-73) Lymphocytes (%) (Auto) 9 % (24-48) Monocytes (%) (Auto) 18 % (0-9) Eosinophils (%) (Auto) 3 % (0-3) Basophils (%) (Auto) 1 % (0-3) Neutrophils # (Auto) 4.4 x10^3uL (1.8-7.7) Lymphocytes # (Auto) 0.6 x10^3/uL (1.0-4.8) Monocytes # (Auto) 1.2 x10^3/uL (0.0-1.1) Eosinophils # (Auto) 0.2 x10^3/uL (0.0-0.7) Basophils # (Auto) 0.0 x10^3/uL (0.0-0.2) Segmented Neutrophils % 75 % (35-66) Lymphocytes % 7 % (24-48) Monocytes % 15 % (0-10) Eosinophils % 2 % (0-5) Basophils % 1 % (0-3) Platelet Estimate Decreased (ADEQUATE) Large Platelets Occ Giant Platelets Occ D-Dimer (Yudi) 0.50 ug/mlFEU (0.00-0.50) Sodium Level 140 mmol/L (136-145) Potassium Level 3.9 mmol/L (3.5-5.1) Chloride Level 101 mmol/L (98-107) Carbon Dioxide Level 26 mmol/L (21-32) Anion Gap 13 (6-14) Blood Urea Nitrogen 15 mg/dL (8-26) Creatinine 1.2 mg/dL (0.7-1.3) Estimated GFR (Cockcroft-Gault) 61.1 BUN/Creatinine Ratio 13 (6-20) Glucose Level 111 mg/dL (70-99) Lactic Acid Level 1.4 mmol/L (0.4-2.0) Calcium Level 9.0 mg/dL (8.5-10.1) Total Bilirubin 0.4 mg/dL (0.2-1.0) Aspartate Amino Transf (AST/SGOT) 24 U/L (15-37) Alanine Aminotransferase (ALT/SGPT) 30 U/L (16-63) Alkaline Phosphatase 75 U/L (46-116) Creatine Kinase 87 U/L (39-308) Creatine Kinase MB (Mass) 1.4 ng/mL (0.0-3.6) Creatine Kinase MB Relative Index 1.6 % (0-4) Troponin I Quantitative < 0.017 ng/mL (0.000-0.055) GT-Fih-O-Type Natriuretic Peptide 126 pg/mL (0-124) Total Protein 7.2 g/dL (6.4-8.2) Albumin 3.4 g/dL (3.4-5.0) Albumin/Globulin Ratio 0.9 (1.0-1.7) Influenza Type A Antigen Negative (NEGATIVE) Influenza Type B Antigen Negative (NEGATIVE) Microbiology 11/04/18 Blood Culture - Preliminary, Resulted NO GROWTH AFTER 1 DAY Medications Current Medications Sodium Chloride 1,000 ml @ 1,000 mls/hr Q1H IV Last administered on 11/04/18at 10:39; Start 11/04/18 at 10:00; Stop 11/04/18 at 10:59; Status DC Albuterol/ Ipratropium (Duoneb) 3 ml 1X ONCE NEB Last administered on at 10:04; Start 11/04/18 at 10:15; Stop 11/04/18 at 10:16; Status DC Sodium Chloride (NORMAL SALINE FLUSH for STERILE FIELD) 10 ml STK-MED ONCE .ROUTE ; Start 11/04/18 at 10:02; Stop 11/04/18 at 10:03; Status DC Methylprednisolone Sodium Succinate (SOLU-Medrol 125MG VIAL) 125 mg 1X ONCE IV Last administered on 11/04/18at 11:55; Start 11/04/18 at 11:15; Stop 11/04/18 at 11:17; Status DC Ceftriaxone Sodium (Rocephin) 1 gm 1X ONCE IVP Last administered on 11/04/18at 12:00; Start 11/04/18 at 11:15; Stop 11/04/18 at 11:17; Status DC Iohexol (Omnipaque 350 Mg/ml) 100 ml 1X ONCE IV Last administered on 11/04/18at 11:26; Start 11/04/18 at 11:30; Stop 11/04/18 at 11:31; Status DC Info (CONTRAST GIVEN -- Rx MONITORING) 1 each PRN DAILY PRN MC SEE COMMENTS; Start 11/04/18 at 11:30; Stop 11/06/18 at 11:29 Sodium Chloride 1,000 ml @ 125 mls/hr Q8H IV Last administered on 11/05/18at 03: 56; Start 11/04/18 at 11:56; Stop 11/05/18 at 07:53; Status DC Allopurinol (Zyloprim) 300 mg DAILY PO ; Start 11/05/18 at 09:00; Stop 11/05/18 at 09:00; Status DC Apixaban (Eliquis) 5 mg BID PO Last administered on 11/06/18at 08:21; Start at 21:00 Meloxicam (Mobic) 15 mg DAILY PO ; Start 11/05/18 at 09:00; Stop 11/05/18 at 09:00 ; Status DC Albuterol/ Ipratropium (Duoneb) 3 ml RTQID NEB Last administered on 11/06/18at 08 :06; Start 11/04/18 at 17:30 Ceftriaxone Sodium (Rocephin) 1 gm Q24H IVP Last administered on 11/05/18at 12:00 ; Start 11/05/18 at 11:00 Allopurinol (Zyloprim) 300 mg HS PO Last administered on 11/05/18at 21:32; Start 11/04/18 at 22:00 Meloxicam (Mobic) 15 mg HS PO Last administered on 11/05/18at 21:30; Start at 22:00 Non-Formulary Medication (Tiotropium [place] (Spiriva)) 2 inh DAILY IH ; Start 11/05/18 at 09:00; Status UNV Methylprednisolone Sodium Succinate (SOLU-Medrol 125MG VIAL) 60 mg Q8HRS IV Last administered on 11/06/18at 06:38; Start 11/05/18 at 09:00 Budesonide (Pulmicort) 0.5 mg RTBID NEB Last administered on 11/06/18at 08:06; Start 11/05/18 at 09:00 Azithromycin (Zithromax) 500 mg 1X ONCE PO Last administered on 11/05/18at 09:15 ; Start 11/05/18 at 09:00; Stop 11/05/18 at 09:01; Status DC Azithromycin (Zithromax) 250 mg DAILY PO Last administered on 11/06/18at 08:21; Start 11/06/18 at 09:00 Throat Lozenges (Cepacol Sore Throat Lozenge) 1 bandar PRN Q4HRS PRN PO SORE THROAT Last administered on 11/05/18at 21:30; Start 11/05/18 at 20:00 Acetaminophen (Tylenol) 650 mg PRN Q6HRS PRN PO MILD PAIN / TEMP Last administered on 11/06/18at 07:26; Start 11/06/18 at 07:30 Active Scripts Active Eliquis (Apixaban) 5 Mg Tablet 5 Mg PO BID Reported Doxycycline Hyclate 100 Mg Capsule 1 Cap PO BID Proair Hfa Inhaler (Albuterol Sulfate) 8.5 Gm Hfa.aer.ad 1 Puff INH PRN Q6HRS PRN Allopurinol 300 Mg Tablet 300 Mg PO DAILY Meloxicam 15 Mg Tablet 15 Mg PO DAILY Spiriva (Tiotropium [place]) 18 Mcg Cap.w.dev 2 Inh IH DAILY Vitals/I & O Vital Sign - Last 24 Hours 11/05/18 11/05/18 11/05/18 11/05/18 11:00 11:54 15:00 15:45 Temp 98.1 97.7 98.1 97.7 Pulse 104 102 Resp 18 16 B/P (MAP) 129/79 (96) 115/65 (82) Pulse Ox 95 97 97 O2 Delivery Room Air Room Air Room Air Room Air 11/05/18 11/05/18 11/05/18 11/05/18 19:15 20:00 20:36 20:46 Temp 97.5 97.5 Pulse 102 Resp 20 B/P (MAP) 133/75 (94) Pulse Ox 95 95 98 O2 Delivery Room Air Room Air Room Air Room Air 11/05/18 11/06/18 11/06/18 11/06/18 23:55 03:30 07:20 08:07 Temp 97.9 98.0 97.8 97.9 98.0 97.8 Pulse 92 82 81 Resp 18 18 18 B/P (MAP) 119/61 (80) 136/76 (96) 132/79 (96) Pulse Ox 93 93 94 97 O2 Delivery Room Air Room Air Room Air Room Air Intake and Output 3/6/19 3/6/19 3/7/19 15:00 23:00 07:00 Intake Total 640 ml 550 ml 510 ml Balance 640 ml 550 ml 510 ml NGHIA ALMEIDA MD Nov 06, 2018 09:05
--- NOTE | 2018-11-06 09:22 | PDOC ---
PULMONARY PROGRESS NOTES Vitals Vital Signs Date Time Temp Pulse Resp B/P (MAP) Pulse Ox O2 Delivery O2 Flow Rate FiO2 11/06/18 08:07 97 Room Air 11/06/18 07:20 97.8 81 18 132/79 (96) 97.8 ROS: No Nausea, No Chest Pain, No Abdominal Pain, No Increase Cough General: Alert Lungs: Clear Cardiovascular: S1, S2 Abdomen: Soft Neuro Exam: Alert Extremities: No Edema Skin: Warm Labs Laboratory Tests Test 11/04/18 10:30 White Blood Count 6.4 x10^3/uL (4.0-11.0) Red Blood Count 4.70 x10^6/uL (4.30-5.70) Hemoglobin 12.9 g/dL (13.0-17.5) Hematocrit 39.6 % (39.0-53.0) Mean Corpuscular Volume 84 fL (79-100) Mean Corpuscular Hemoglobin 28 pg (25-35) Mean Corpuscular Hemoglobin Concent 33 g/dL (31-37) Red Cell Distribution Width 17.8 % (11.5-14.5) Platelet Count 130 x10^3/uL (140-400) Neutrophils (%) (Auto) 69 % (31-73) Lymphocytes (%) (Auto) 9 % (24-48) Monocytes (%) (Auto) 18 % (0-9) Eosinophils (%) (Auto) 3 % (0-3) Basophils (%) (Auto) 1 % (0-3) Neutrophils # (Auto) 4.4 x10^3uL (1.8-7.7) Lymphocytes # (Auto) 0.6 x10^3/uL (1.0-4.8) Monocytes # (Auto) 1.2 x10^3/uL (0.0-1.1) Eosinophils # (Auto) 0.2 x10^3/uL (0.0-0.7) Basophils # (Auto) 0.0 x10^3/uL (0.0-0.2) Segmented Neutrophils % 75 % (35-66) Lymphocytes % 7 % (24-48) Monocytes % 15 % (0-10) Eosinophils % 2 % (0-5) Basophils % 1 % (0-3) Platelet Estimate Decreased (ADEQUATE) Large Platelets Occ Giant Platelets Occ D-Dimer (Yudi) 0.50 ug/mlFEU (0.00-0.50) Sodium Level 140 mmol/L (136-145) Potassium Level 3.9 mmol/L (3.5-5.1) Chloride Level 101 mmol/L (98-107) Carbon Dioxide Level 26 mmol/L (21-32) Anion Gap 13 (6-14) Blood Urea Nitrogen 15 mg/dL (8-26) Creatinine 1.2 mg/dL (0.7-1.3) Estimated GFR (Cockcroft-Gault) 61.1 BUN/Creatinine Ratio 13 (6-20) Glucose Level 111 mg/dL (70-99) Lactic Acid Level 1.4 mmol/L (0.4-2.0) Calcium Level 9.0 mg/dL (8.5-10.1) Total Bilirubin 0.4 mg/dL (0.2-1.0) Aspartate Amino Transf (AST/SGOT) 24 U/L (15-37) Alanine Aminotransferase (ALT/SGPT) 30 U/L (16-63) Alkaline Phosphatase 75 U/L (46-116) Creatine Kinase 87 U/L (39-308) Creatine Kinase MB (Mass) 1.4 ng/mL (0.0-3.6) Creatine Kinase MB Relative Index 1.6 % (0-4) Troponin I Quantitative < 0.017 ng/mL (0.000-0.055) IX-Jrs-H-Type Natriuretic Peptide 126 pg/mL (0-124) Total Protein 7.2 g/dL (6.4-8.2) Albumin 3.4 g/dL (3.4-5.0) Albumin/Globulin Ratio 0.9 (1.0-1.7) Influenza Type A Antigen Negative (NEGATIVE) Influenza Type B Antigen Negative (NEGATIVE) Medications Active Scripts Medications Dose Route/Sig Max Daily Dose Days Date Category Doxycycline Hyclate 100 Mg Capsule 1 Cap PO BID 11/04/18 Reported Eliquis (Apixaban) 5 Mg Tablet 5 Mg PO BID 09/24/18 Rx Proair Hfa Inhaler (Albuterol Sulfate) 8.5 Gm Hfa.aer.ad 1 Puff INH PRN Q6HRS PRN 07/14/18 Reported Allopurinol 300 Mg Tablet 300 Mg PO DAILY 07/23/17 Reported Meloxicam 15 Mg Tablet 15 Mg PO DAILY 07/23/17 Reported Spiriva (Tiotropium [place]) 18 Mcg Cap.w.dev 2 Inh IH DAILY 07/23/17 Reported Impression . IMPRESSION: 1. Progressive dyspnea secondary to acute exacerbation of chronic obstructive pulmonary disease. 2. 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 He was started on consolidation treatment with Imfinzi on 10/28/2018. The next treatment was deferred because of acute exacerbation of chronic obstructive pulmonary disease and possible pneumonia. 3. PE diagnosed on 09/23/2018. Continue Eliquis. Current CT angiogram reveals no new pulmonary embolism. 4. Tobacco dependence, in remission. 5. Severe chronic obstructive pulmonary disease. 6. Continue steroids, antibiotics. 7. Nebulized treatments. 8. Follow Dr. Garcia's input. 9. Continue Eliquis. CHEST Impression: No pulmonary arterial thromboembolic disease. Resolution of previously identified right lower lobe pulmonary arterial thromboembolic disease. Increased left hilar mass size. MELVI RIGGS MD Nov 06, 2018 09:22
--- NOTE | 2018-11-06 09:32 | EKG ---
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
[2018-11-06 11:20] VITALS: BP 150/83
[2018-11-06] MEDS: cefTRIAXone IV Push 1 GM VIAL. IVP SCH (11:21)
--- NOTE | 2018-11-06 14:05 | PDOC2 ---
CARDIAC CONSULT DATE OF CONSULT Date of Consult DATE: 11/06/18 TIME: 13:54 REASON FOR CONSULT Reason for Consult: Tachycardia REFERRING PHYSICIAN Referring Physician: Ami SOURCE Source: Chart review, Patient HISTORY OF PRESENT ILLNESS HISTORY OF PRESENT ILLNESS This is a 63 yo male admitted for complains of SOA. He was noted with tachycardia and tachypnea by his oncologist. He has not hx of CAD nor any arrhythmias. He is significant for COPD and lung cancer. Also with PE recently which has reolsved with NOAC. He is on chemo and immunotherapy. He has been having chest pain but mainly with cough and has been having productive cough. No recorded fever. At the present time he is not SOA, feels that he has not drink enough. No dizziness but does feel his HR speeds up when moving around. 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) PAST SURGICAL HISTORY Past Surgical History: Arthroscopy (right elbow), Hernia Repair, Other (LLL lobectomy; skin grafts) FAMILY HISTORY Family History noncontributory to CV SOCIAL HISTORY Smoke: Quit ALCOHOL: none Drugs: None CURRENT MEDICATIONS CURRENT MEDICATIONS Current Medications Medications (Trade) Dose Ordered Sig/Tadeo Route PRN Reason Start Time Stop Time Status Last Admin Dose Admin Azithromycin (Zithromax) 250 mg DAILY PO 11/06/18 09:00 11/06/18 08:21 Throat Lozenges (Cepacol Sore Throat Lozenge) 1 bandar PRN Q4HRS PRN PO SORE THROAT 11/05/18 20:00 11/05/18 21:30 Acetaminophen (Tylenol) 650 mg PRN Q6HRS PRN PO MILD PAIN / TEMP 11/06/18 07:30 11/06/18 07:26 ALLERGIES ALLERGIES: Coded Allergies: adhesive tape (Verified Allergy, Intermediate, 10/28/18) oxycodone (Verified Allergy, Intermediate, sweating and itching, 10/28/18) paroxetine (Verified Adverse Reaction, Intermediate, diarrhea, 10/28/18) ROS Review of System 14 point ROS evaluated with pertinent positives noted per HPI PHYSICAL EXAM General: Alert, Oriented X3, Cooperative, No acute distress HEENT: Atraumatic, Mucous membr. 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 ) VITALS VITALS Vital Signs Date Time Temp Pulse Resp B/P (MAP) Pulse Ox O2 Delivery O2 Flow Rate FiO2 11/06/18 12:07 Room Air 11/06/18 11:20 98.0 101 20 150/83 (105) 94 98.0 ECHOCARDIOGRAM ECHOCARDIOGRAM <Conclusion> The left ventricle is normal size. The left ventricular systolic function is normal and the ejection fraction is within normal range. The Ejection Fraction is 55-60%. The right ventricular systolic function is normal. The right atrium size is normal. There is no significant aortic valvular stenosis. Doppler and Color Flow revealed no significant aortic regurgitation. Doppler and Color Flow revealed trace mitral valve regurgitation. Doppler and Color Flow revealed trace tricuspid valve regurgitation. DATE: 09/23/18 1651 ASSESSMENT/PLAN ASSESSMENT/PLAN 1. Reactive sinus tach: HR 100-110. No significant ectopies or morphology that woul suggest MATnor atrial tach. Recent EF and WM nml 2. Atypical CP: pleuritic with underlying pulmonary issues 3. AECOPD with possible pneumonia: pulmonary following 4. Recent PE: resolved per CTA, on eliquis. 5. 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 IVF 500 ml bolus with reported poor hydration. check Mg and BMP 2. TTE has been reviewed. Continue with COPD and antibiotic treatments per pulmonary 3. If remains tachy then I would suspect this could be related to immunotherapy. May use low dose BB if remains. ROME CARVALHO APRN Nov 06, 2018 14:05
[2018-11-06] MEDS ORDERED: IV NORMAL SALINE 1000ML BAG 1,000 ML IV ONE (14:15)
[2018-11-06 15:00] VITALS: BP 141/83
[2018-11-06 17:01] LABS: CALCIUM 8.8 mg/dL (8.5-10.1); CREATININE 1.1 mg/dL (0.7-1.3); GFR 67.6; MAGNESIUM 2.2 mg/dL (1.8-2.4); POTASSIUM 3.8 mmol/L (3.5-5.1)
[2018-11-06 19:50] VITALS: BP 141/85
[2018-11-06] MEDS: BENZOCAINE/MENTHOL LOZENGE. PO PRN (21:09)
[2018-11-06] MEDS: MELOXICAM 7.5 MG TABLET PO SCH (21:09)
[2018-11-06] MEDS: ALLOPURINOL 300 MG TABLET. PO SCH (21:09)
[2018-11-06 23:30] VITALS: BP 137/78
[2018-11-07 03:20] VITALS: BP 131/75
[2018-11-07] MEDS: methylPREDNISolone SOD SUCC PF 125 MG/2 ML VIAL. IV SCH (05:52)
[2018-11-07 07:00] VITALS: BP 150/93
[2018-11-07] MEDS: IPRATRPIUM/ALBUTEROL 0.5/2.5MG 3 ML NEBU. NEB SCH (07:19)
[2018-11-07] MEDS: BUDESONIDE 0.5 MG/2 ML NEBU. NEB SCH (07:19)
--- NOTE | 2018-11-07 08:27 | PDOC ---
PROGRESS NOTES Subjective Subjective Patient without complaint, feels he could go home today. Objective Objective Vital Signs Date Time Temp Pulse Resp B/P (MAP) Pulse Ox O2 Delivery O2 Flow Rate FiO2 11/07/18 07:49 Room Air 11/07/18 07:20 98 11/07/18 07:00 98.0 92 18 150/93 (112) 98.0 Intake and Output 11/07/18 06:59 Intake Total 1450 ml Output Total 2 ml Balance 1448 ml Intake Oral 1450 ml Output Urine Total 2 ml Physical Exam Abdomen: Normal bowel sounds, Soft, No tenderness Heart: Regular rate Extremities: No edema General: Alert, Oriented X3, No acute distress Lungs: Other (BS mildly decreased throughout, no wheezes) Assessment Assessment Problems Medical Problems: (1) CAP (community acquired pneumonia) Status: Acute (2) SIRS (systemic inflammatory response syndrome) Status: Acute Plan Plan of Care 1. AE COPD with pneumonia - improved. No hypoxia. Home today on Doxycycline, Prednisone taper and his usual inhalers. 2. squamous cell lung cancer - continue tx per Dr Garcia. 3. tachycardia - improved. Cardiology does not recommend medication or further evaluation at this time. 4. hx PE - clots resolved on CT. Continue Eliquis. Comment Review of Relevant I have reviewed the following items kassi (where applicable) has been applied. Labs Laboratory Tests Test 11/06/18 14:02 11/06/18 16:00 Thyroid Stimulating Hormone (TSH) 0.322 uIU/mL (0.358-3.74) Sodium Level 140 mmol/L (136-145) Potassium Level 3.8 mmol/L (3.5-5.1) Chloride Level 104 mmol/L (98-107) Carbon Dioxide Level 26 mmol/L (21-32) Anion Gap 10 (6-14) Blood Urea Nitrogen 15 mg/dL (8-26) Creatinine 1.1 mg/dL (0.7-1.3) Estimated GFR (Cockcroft-Gault) 67.6 Glucose Level 191 mg/dL (70-99) Calcium Level 8.8 mg/dL (8.5-10.1) Magnesium Level 2.2 mg/dL (1.8-2.4) Laboratory Tests Test 11/06/18 14:02 11/06/18 16:00 Thyroid Stimulating Hormone (TSH) 0.322 uIU/mL (0.358-3.74) Sodium Level 140 mmol/L (136-145) Potassium Level 3.8 mmol/L (3.5-5.1) Chloride Level 104 mmol/L (98-107) Carbon Dioxide Level 26 mmol/L (21-32) Anion Gap 10 (6-14) Blood Urea Nitrogen 15 mg/dL (8-26) Creatinine 1.1 mg/dL (0.7-1.3) Estimated GFR (Cockcroft-Gault) 67.6 Glucose Level 191 mg/dL (70-99) Calcium Level 8.8 mg/dL (8.5-10.1) Magnesium Level 2.2 mg/dL (1.8-2.4) Microbiology 11/04/18 Blood Culture - Preliminary, Resulted NO GROWTH AFTER 2 DAYS Medications Current Medications Sodium Chloride 1,000 ml @ 1,000 mls/hr Q1H IV Last administered on 11/04/18at 10:39; Start 11/04/18 at 10:00; Stop 11/04/18 at 10:59; Status DC Albuterol/ Ipratropium (Duoneb) 3 ml 1X ONCE NEB Last administered on at 10:04; Start 11/04/18 at 10:15; Stop 11/04/18 at 10:16; Status DC Sodium Chloride (NORMAL SALINE FLUSH for STERILE FIELD) 10 ml STK-MED ONCE .ROUTE ; Start 11/04/18 at 10:02; Stop 11/04/18 at 10:03; Status DC Methylprednisolone Sodium Succinate (SOLU-Medrol 125MG VIAL) 125 mg 1X ONCE IV Last administered on 11/04/18at 11:55; Start 11/04/18 at 11:15; Stop 11/04/18 at 11:17; Status DC Ceftriaxone Sodium (Rocephin) 1 gm 1X ONCE IVP Last administered on 11/04/18at 12:00; Start 11/04/18 at 11:15; Stop 11/04/18 at 11:17; Status DC Iohexol (Omnipaque 350 Mg/ml) 100 ml 1X ONCE IV Last administered on 11/04/18at 11:26; Start 11/04/18 at 11:30; Stop 11/04/18 at 11:31; Status DC Info (CONTRAST GIVEN -- Rx MONITORING) 1 each PRN DAILY PRN MC SEE COMMENTS; Start 11/04/18 at 11:30; Stop 11/06/18 at 11:29; Status DC Sodium Chloride 1,000 ml @ 125 mls/hr Q8H IV Last administered on 11/05/18 03: 56; Start 11/04/18 at 11:56; Stop 11/05/18 at 07:53; Status DC Allopurinol (Zyloprim) 300 mg DAILY PO ; Start 11/05/18 at 09:00; Stop 11/05/18 at 09:00; Status DC Apixaban (Eliquis) 5 mg BID PO Last administered on 11/06/18 21:08; Start at 21:00 Meloxicam (Mobic) 15 mg DAILY PO ; Start 11/05/18 at 09:00; Stop 11/05/18 at 09:00 ; Status DC Albuterol/ Ipratropium (Duoneb) 3 ml RTQID NEB Last administered on 11/07/18 07 :19; Start 11/04/18 at 17:30 Ceftriaxone Sodium (Rocephin) 1 gm Q24H IVP Last administered on 11/06/18 11:21 ; Start 11/05/18 at 11:00 Allopurinol (Zyloprim) 300 mg HS PO Last administered on 11/06/18 21:09; Start 11/04/18 at 22:00 Meloxicam (Mobic) 15 mg HS PO Last administered on 11/06/18at 21:09; Start at 22:00 Non-Formulary Medication (Tiotropium [place] (Spiriva)) 2 inh DAILY IH ; Start 11/05/18 at 09:00; Status UNV Methylprednisolone Sodium Succinate (SOLU-Medrol 125MG VIAL) 60 mg Q8HRS IV Last administered on 11/07/18 05:52; Start 11/05/18 at 09:00 Budesonide (Pulmicort) 0.5 mg RTBID NEB Last administered on 11/07/18 07:19; Start 11/05/18 at 09:00 Azithromycin (Zithromax) 500 mg 1X ONCE PO Last administered on 11/05/18at 09:15 ; Start 11/05/18 at 09:00; Stop 11/05/18 at 09:01; Status DC Azithromycin (Zithromax) 250 mg DAILY PO Last administered on 11/06/18 08:21; Start 11/06/18 at 09:00 Throat Lozenges (Cepacol Sore Throat Lozenge) 1 bandar PRN Q4HRS PRN PO SORE THROAT Last administered on 11/06/18 21:09; Start 11/05/18 at 20:00 Acetaminophen (Tylenol) 650 mg PRN Q6HRS PRN PO MILD PAIN / TEMP Last administered on 11/06/18at 21:09; Start 11/06/18 at 07:30 Sodium Chloride 1,000 ml @ 250 mls/hr 1X ONCE IV Last administered on 14:29; Start 11/06/18 at 14:15; Stop 11/06/18 at 18:14; Status DC Active Scripts Active Eliquis (Apixaban) 5 Mg Tablet 5 Mg PO BID Reported Doxycycline Hyclate 100 Mg Capsule 1 Cap PO BID Proair Hfa Inhaler (Albuterol Sulfate) 8.5 Gm Hfa.aer.ad 1 Puff INH PRN Q6HRS PRN Allopurinol 300 Mg Tablet 300 Mg PO DAILY Meloxicam 15 Mg Tablet 15 Mg PO DAILY Spiriva (Tiotropium [place]) 18 Mcg Cap.w.dev 2 Inh IH DAILY Vitals/I & O Vital Sign - Last 24 Hours 11/06/18 11/06/18 11/06/18 11/06/18 11:20 12:07 15:00 15:57 Temp 98.0 98.0 98.0 98.0 Pulse 101 108 Resp 20 20 B/P (MAP) 150/83 (105) 141/83 (102) Pulse Ox 94 95 O2 Delivery Room Air Room Air Room Air Room Air 11/06/18 11/06/18 11/06/18 11/06/18 19:50 20:00 20:08 23:30 Temp 98.1 97.7 98.1 97.7 Pulse 103 106 Resp 20 20 B/P (MAP) 141/85 (103) 137/78 (97) Pulse Ox 94 96 93 O2 Delivery Room Air Room Air Room Air Room Air 3/8/19 3/8/19 3/8/19 3/8/19 03:20 07:00 07:20 07:49 Temp 98.0 98.0 98.0 98.0 Pulse 85 92 Resp 18 18 B/P (MAP) 131/75 (93) 150/93 (112) Pulse Ox 94 94 98 O2 Delivery Room Air Room Air Room Air Room Air Intake and Output 11/06/18 11/06/18 11/07/18 14:59 22:59 06:59 Intake Total 400 ml 500 ml 550 ml Output Total 2 ml Balance 400 ml 498 ml 550 ml BRENT RICHARDSON MD Nov 07, 2018 08:27
[2018-11-07] MEDS: AZITHROMYCIN 250 MG TABLET. PO SCH (09:16)
[2018-11-07] MEDS: APIXABAN 5 MG TABLET. PO SCH (09:16)
[2018-11-07] MEDS ORDERED: ANTI-COAG MONITOR BY PHARMACY. MC PRN (10:15)
[2018-11-07] MEDS ORDERED: PRED20TA PO (10:17)
--- NOTE | 2018-11-07 10:24 | PDOC ---
PULMONARY PROGRESS NOTES Vitals Vital Signs Date Time Temp Pulse Resp B/P (MAP) Pulse Ox O2 Delivery O2 Flow Rate FiO2 11/07/18 07:49 Room Air 11/07/18 07:20 98 11/07/18 07:00 98.0 92 18 150/93 (112) 98.0 ROS: No Nausea, No Chest Pain, No Abdominal Pain, No Increase Cough General: Alert Lungs: Clear Cardiovascular: S1, S2 Abdomen: Soft Neuro Exam: Alert Extremities: No Edema Skin: Warm Labs Laboratory Tests Test 11/06/18 14:02 11/06/18 16:00 Thyroid Stimulating Hormone (TSH) 0.322 uIU/mL (0.358-3.74) Sodium Level 140 mmol/L (136-145) Potassium Level 3.8 mmol/L (3.5-5.1) Chloride Level 104 mmol/L (98-107) Carbon Dioxide Level 26 mmol/L (21-32) Anion Gap 10 (6-14) Blood Urea Nitrogen 15 mg/dL (8-26) Creatinine 1.1 mg/dL (0.7-1.3) Estimated GFR (Cockcroft-Gault) 67.6 Glucose Level 191 mg/dL (70-99) Calcium Level 8.8 mg/dL (8.5-10.1) Magnesium Level 2.2 mg/dL (1.8-2.4) Laboratory Tests Test 11/06/18 14:02 11/06/18 16:00 Thyroid Stimulating Hormone (TSH) 0.322 uIU/mL (0.358-3.74) Sodium Level 140 mmol/L (136-145) Potassium Level 3.8 mmol/L (3.5-5.1) Chloride Level 104 mmol/L (98-107) Carbon Dioxide Level 26 mmol/L (21-32) Anion Gap 10 (6-14) Blood Urea Nitrogen 15 mg/dL (8-26) Creatinine 1.1 mg/dL (0.7-1.3) Estimated GFR (Cockcroft-Gault) 67.6 Glucose Level 191 mg/dL (70-99) Calcium Level 8.8 mg/dL (8.5-10.1) Magnesium Level 2.2 mg/dL (1.8-2.4) Medications Active Scripts Medications Dose Route/Sig Max Daily Dose Days Date Category Doxycycline Hyclate 100 Mg Capsule 1 Cap PO BID 3/5/19 Reported Eliquis (Apixaban) 5 Mg Tablet 5 Mg PO BID 09/24/18 Rx Proair Hfa Inhaler (Albuterol Sulfate) 8.5 Gm Hfa.aer.ad 1 Puff INH PRN Q6HRS PRN 07/14/18 Reported Allopurinol 300 Mg Tablet 300 Mg PO DAILY 07/23/17 Reported Meloxicam 15 Mg Tablet 15 Mg PO DAILY 07/23/17 Reported Spiriva (Tiotropium [place]) 18 Mcg Cap.w.dev 2 Inh IH DAILY 07/23/17 Reported Impression . IMPRESSION: 1. Progressive dyspnea secondary to acute exacerbation of chronic obstructive pulmonary disease. 2. 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 He was started on consolidation treatment with Imfinzi on 10/28/2018. The next treatment was deferred because of acute exacerbation of chronic obstructive pulmonary disease and possible pneumonia. 3. PE diagnosed on 09/23/2018. Continue Eliquis. Current CT angiogram reveals no new pulmonary embolism. 4. Tobacco dependence, in remission. 5. Severe chronic obstructive pulmonary disease. 6. Continue steroids, antibiotics. 7. Nebulized treatments. 8. Follow Dr. Garcia's input. 9. Continue Eliquis. CHEST Impression: No pulmonary arterial thromboembolic disease. Resolution of previously identified right lower lobe pulmonary arterial thromboembolic disease. Increased left hilar mass size. MELVI RIGGS MD Nov 07, 2018 10:24
--- NOTE | 2018-11-07 10:29 | PDOC ---
PROGRESS NOTES Subjective Subjective HPI - f/u of T4 N0 M0, stage 3A squamous cell carcinoma of the left upper lobe of the lung with suspected mediastinal invasion diagnosed on 07/14/2018 ROS - dyspnea better Objective Objective Vital Signs Date Time Temp Pulse Resp B/P (MAP) Pulse Ox O2 Delivery O2 Flow Rate FiO2 11/07/18 07:49 Room Air 11/07/18 07:20 98 11/07/18 07:00 98.0 92 18 150/93 (112) 98.0 Intake and Output 11/07/18 06:59 Intake Total 1450 ml Output Total 2 ml Balance 1448 ml Intake Oral 1450 ml Output Urine Total 2 ml Physical Exam Heart: Normal S1, Normal S2 General: Alert, Oriented X3 Lungs: Clear to auscultation Neuro: Normal speech Psych/Mental Status: Mental status NL Assessment Assessment Problems Medical Problems: (1) CAP (community acquired pneumonia) Status: Acute (2) SIRS (systemic inflammatory response syndrome) Status: Acute IMPRESSION AND PLAN: 1. 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 He completed chemoradiation with carboplatin and Taxol and he was started on consolidation treatment with Imfinzi on 10/28/2018. His next treatment will be deferred because of pneumonia. I will continue to monitor for toxicities. 2. Pneumonia, not responding to oral antibiotics. 3. Pulmonary embolism diagnosed on 09/23/2018. Continue Eliquis. Followup CT angiogram of the chest on 11/04/2018 reveals resolution of pulmonary embolism. 4. Dyspnea due to COPD. Appreciate pulm consult. 5. Tachycardia due to COPD - appreciate cardiology eval. Comment Review of Relevant I have reviewed the following items kassi (where applicable) has been applied. Labs Laboratory Tests Test 11/06/18 14:02 11/06/18 16:00 Thyroid Stimulating Hormone (TSH) 0.322 uIU/mL (0.358-3.74) Sodium Level 140 mmol/L (136-145) Potassium Level 3.8 mmol/L (3.5-5.1) Chloride Level 104 mmol/L (98-107) Carbon Dioxide Level 26 mmol/L (21-32) Anion Gap 10 (6-14) Blood Urea Nitrogen 15 mg/dL (8-26) Creatinine 1.1 mg/dL (0.7-1.3) Estimated GFR (Cockcroft-Gault) 67.6 Glucose Level 191 mg/dL (70-99) Calcium Level 8.8 mg/dL (8.5-10.1) Magnesium Level 2.2 mg/dL (1.8-2.4) Laboratory Tests Test 11/06/18 14:02 11/06/18 16:00 Thyroid Stimulating Hormone (TSH) 0.322 uIU/mL (0.358-3.74) Sodium Level 140 mmol/L (136-145) Potassium Level 3.8 mmol/L (3.5-5.1) Chloride Level 104 mmol/L (98-107) Carbon Dioxide Level 26 mmol/L (21-32) Anion Gap 10 (6-14) Blood Urea Nitrogen 15 mg/dL (8-26) Creatinine 1.1 mg/dL (0.7-1.3) Estimated GFR (Cockcroft-Gault) 67.6 Glucose Level 191 mg/dL (70-99) Calcium Level 8.8 mg/dL (8.5-10.1) Magnesium Level 2.2 mg/dL (1.8-2.4) Microbiology 11/04/18 Blood Culture - Preliminary, Resulted NO GROWTH AFTER 2 DAYS Medications Current Medications Sodium Chloride 1,000 ml @ 1,000 mls/hr Q1H IV Last administered on 11/04/18at 10:39; Start 11/04/18 at 10:00; Stop 11/04/18 at 10:59; Status DC Albuterol/ Ipratropium (Duoneb) 3 ml 1X ONCE NEB Last administered on at 10:04; Start 11/04/18 at 10:15; Stop 11/04/18 at 10:16; Status DC Sodium Chloride (NORMAL SALINE FLUSH for STERILE FIELD) 10 ml STK-MED ONCE .ROUTE ; Start 11/04/18 at 10:02; Stop 11/04/18 at 10:03; Status DC Methylprednisolone Sodium Succinate (SOLU-Medrol 125MG VIAL) 125 mg 1X ONCE IV Last administered on 11/04/18at 11:55; Start 11/04/18 at 11:15; Stop 11/04/18 at 11:17; Status DC Ceftriaxone Sodium (Rocephin) 1 gm 1X ONCE IVP Last administered on 11/04/18at 12:00; Start 11/04/18 at 11:15; Stop 11/04/18 at 11:17; Status DC Iohexol (Omnipaque 350 Mg/ml) 100 ml 1X ONCE IV Last administered on 11/04/18 11:26; Start 11/04/18 at 11:30; Stop 11/04/18 at 11:31; Status DC Info (CONTRAST GIVEN -- Rx MONITORING) 1 each PRN DAILY PRN MC SEE COMMENTS; Start 11/04/18 at 11:30; Stop 11/06/18 at 11:29; Status DC Sodium Chloride 1,000 ml @ 125 mls/hr Q8H IV Last administered on 11/05/18 03: 56; Start 11/04/18 at 11:56; Stop 11/05/18 at 07:53; Status DC Allopurinol (Zyloprim) 300 mg DAILY PO ; Start 11/05/18 at 09:00; Stop 11/05/18 at 09:00; Status DC Apixaban (Eliquis) 5 mg BID PO Last administered on 11/07/18 09:16; Start at 21:00 Meloxicam (Mobic) 15 mg DAILY PO ; Start 11/05/18 at 09:00; Stop 11/05/18 at 09:00 ; Status DC Albuterol/ Ipratropium (Duoneb) 3 ml RTQID NEB Last administered on 11/07/18 07 :19; Start 11/04/18 at 17:30 Ceftriaxone Sodium (Rocephin) 1 gm Q24H IVP Last administered on 11/06/18 11:21 ; Start 11/05/18 at 11:00 Allopurinol (Zyloprim) 300 mg HS PO Last administered on 11/06/18 21:09; Start 11/04/18 at 22:00 Meloxicam (Mobic) 15 mg HS PO Last administered on 11/06/18 21:09; Start at 22:00 Non-Formulary Medication (Tiotropium [place] (Spiriva)) 2 inh DAILY IH ; Start 11/05/18 at 09:00; Status UNV Methylprednisolone Sodium Succinate (SOLU-Medrol 125MG VIAL) 60 mg Q8HRS IV Last administered on 11/07/18 05:52; Start 11/05/18 at 09:00; Stop 11/07/18 at 08: 33; Status DC Budesonide (Pulmicort) 0.5 mg RTBID NEB Last administered on 11/07/18 07:19; Start 11/05/18 at 09:00 Azithromycin (Zithromax) 500 mg 1X ONCE PO Last administered on 11/05/18 09:15 ; Start 11/05/18 at 09:00; Stop 11/05/18 at 09:01; Status DC Azithromycin (Zithromax) 250 mg DAILY PO Last administered on 11/07/18at 09:16; Start 11/06/18 at 09:00 Throat Lozenges (Cepacol Sore Throat Lozenge) 1 bandar PRN Q4HRS PRN PO SORE THROAT Last administered on 11/06/18at 21:09; Start 11/05/18 at 20:00 Acetaminophen (Tylenol) 650 mg PRN Q6HRS PRN PO MILD PAIN / TEMP Last administered on 11/06/18 21:09; Start 11/06/18 at 07:30 Sodium Chloride 1,000 ml @ 250 mls/hr 1X ONCE IV Last administered on 14:29; Start 11/06/18 at 14:15; Stop 11/06/18 at 18:14; Status DC Info (Anti-Coagulation Monitoring By Pharmacy) 1 each PRN DAILY PRN MC SEE COMMENTS; Start 11/07/18 at 10:15 Active Scripts Active Eliquis (Apixaban) 5 Mg Tablet 5 Mg PO BID Reported Prednisone 20 Mg Tablet 1.5 Tab PO DAILY 2 Days Doxycycline Hyclate 100 Mg Capsule 1 Cap PO BID Proair Hfa Inhaler (Albuterol Sulfate) 8.5 Gm Hfa.aer.ad 1 Puff INH PRN Q6HRS PRN Allopurinol 300 Mg Tablet 300 Mg PO DAILY Meloxicam 15 Mg Tablet 15 Mg PO DAILY Spiriva (Tiotropium [place]) 18 Mcg Cap.w.dev 2 Inh IH DAILY Vitals/I & O Vital Sign - Last 24 Hours 11/06/18 11/06/18 11/06/18 11/06/18 11:20 12:07 15:00 15:57 Temp 98.0 98.0 98.0 98.0 Pulse 101 108 Resp 20 20 B/P (MAP) 150/83 (105) 141/83 (102) Pulse Ox 94 95 O2 Delivery Room Air Room Air Room Air Room Air 11/06/18 11/06/18 11/06/18 11/06/18 19:50 20:00 20:08 23:30 Temp 98.1 97.7 98.1 97.7 Pulse 103 106 Resp 20 20 B/P (MAP) 141/85 (103) 137/78 (97) Pulse Ox 94 96 93 O2 Delivery Room Air Room Air Room Air Room Air 11/07/18 11/07/18 11/07/18 11/07/18 03:20 07:00 07:20 07:49 Temp 98.0 98.0 98.0 98.0 Pulse 85 92 Resp 18 18 B/P (MAP) 131/75 (93) 150/93 (112) Pulse Ox 94 94 98 O2 Delivery Room Air Room Air Room Air Room Air Intake and Output 11/06/18 11/06/18 11/07/18 14:59 22:59 06:59 Intake Total 400 ml 500 ml 550 ml Output Total 2 ml Balance 400 ml 498 ml 550 ml NGHIA ALMEIDA MD Nov 07, 2018 10:29
[2018-11-07] MEDS ORDERED: HEPARIN PF 500 UNIT/5 ML DISP.SYRIN. IV ONE (10:30)
[2018-11-07] MEDS: cefTRIAXone IV Push 1 GM VIAL. IVP SCH (10:31)
--- NOTE | 2018-11-07 11:07 | DS ---
DATE OF DISCHARGE: 11/07/2018 CHIEF COMPLAINT: Dyspnea and tachycardia. HISTORY OF PRESENT ILLNESS: The patient is a 63-year-old male who was brought to the Emergency Room with the above complaint. He reported a several-day history of increasing dyspnea on exertion. This was accompanied by a cough, which was occasionally productive of some discolored sputum. The patient was seen at Dr. Garcia's office on the day of admission for a routine appointment for his immunotherapy for his squamous cell lung cancer. He was found to be tachypneic and tachycardic, although he was not hypoxic on room air. He was brought to the Emergency Room. Initial evaluation there included a chest x-ray, which showed atelectasis and a CT of the chest, which showed atelectasis, but no definite infiltrate. Treatment was started and the patient was admitted for further care. HOSPITAL COURSE: The patient was admitted and seen in consultation by Cardiology, Oncology and Pulmonology. He was started on treatment for possible community-acquired pneumonia with Rocephin and Zithromax. He was felt to be experiencing an acute exacerbation of his COPD and this was treated with Solu-Medrol. The patient remained without hypoxia on room air during his hospital stay. His cough and chest exam have improved significantly and he feels ready to go home today. The patient has squamous cell lung cancer. He has already been treated with radiation and chemotherapy. He is now on immunotherapy from Dr. Garcia's office. A CT of the chest showed some enlargement of his known left hilar mass and the surrounding atelectasis. The patient will follow up with Dr. Garcia as an outpatient for further treatment. The patient was diagnosed with pulmonary emboli in 09/2018. He was started on Eliquis at that time. CT of the chest during this admission shows resolution of the previously seen emboli. He will continue on Eliquis daily. The patient had intermittent episodes of sinus tachycardia during his hospital stay. Several EKGs were done, which did not show any evidence of acute ischemia. He had an echocardiogram during his last hospitalization, which showed a preserved ejection fraction and no evidence of ischemia. He was seen by Cardiology, they felt that the tachycardia was reactive and that no further evaluation or treatment was needed at this time. The patient's TSH was within normal limits in October and only very slightly depressed on lab during this hospital stay. FINAL DIAGNOSES: 1. Acute exacerbation of chronic obstructive pulmonary disease. 2. Acute bronchitis. 3. Squamous cell lung cancer. 4. Sinus tachycardia. 5. History of pulmonary emboli. DISCHARGE MEDICATIONS: Doxycycline 100 mg p.o. b.i.d. x 7 days, prednisone 20 mg tablet 3 tablets daily for 2 days, then 2 tablets daily for 2 days, then 1 tablet daily for 2 days and then discontinue, albuterol inhaler p.r.n., allopurinol 300 mg daily, Eliquis 5 mg b.i.d., meloxicam 15 mg daily p.r.n. and Spiriva 2 puffs daily. FOLLOWUP: With Dr. Adams within 2 weeks. Follow up with Dr. Garcia and Dr. Riojas as advised. BRENT RICHARDSON MD DR: LASHAY/hung JOB#: [id number] / [id number] NICK
--- NOTE | 2018-11-07 11:28 | NUR ---
Discharge Note: DEBBIE SHARIF [address] [place] [address] Discharge instructions and discharge home medications reviewed with Patient and a copy given. All questions have been answered and understanding verbalized. The following instructions and handouts were given: Diet, activity, medication list and follow up instructions provided to patient. Prednisone dose called to pharmacy per Dr. Riojas's instructions. Discontinued lines and drains: Port-A cath heparin locked and de-accessed with catheter intact. Patient discharged to with Spouse via [facility]
== END 2018-11-07 11:35 | disposition home or self-care (01) | DRG 190 ==
LOC: ER 09:31 → 6 SOUTH 11:09
PROVIDERS: ADMIT Family Medicine; ATTEND Family Medicine
DX: J44.1 Chronic obstructive pulmonary disease with (acute) exacerbation (principal); J18.9 Pneumonia, unspecified organism; C34.12 Malignant neoplasm of upper lobe, left bronchus or lung; J98.11 Atelectasis; J44.0 Chronic obstructive pulmonary disease with (acute) lower respiratory infection; I10 Essential (primary) hypertension; F17.201 Nicotine dependence, unspecified, in remission; J20.9 Acute bronchitis, unspecified; Z79.01 Long term (current) use of anticoagulants; Z80.8 Family history of malignant neoplasm of other organs or systems; Z85.118 Personal history of other malignant neoplasm of bronchus and lung; Z86.711 Personal history of pulmonary embolism; Z92.21 Personal history of antineoplastic chemotherapy; Z92.3 Personal history of irradiation; M10.9 Gout, unspecified; M19.90 Unspecified osteoarthritis, unspecified site; Z88.8 Allergy status to other drugs, medicaments and biological substances; Z91.048 Other nonmedicinal substance allergy status
CPT/HCPCS: 36415; 71045; 71275; 80048; 80053; 82553; 83605; 83735; 83880; 84443; 84484; 85007; 85025; 85379; 87040; 87804; 93005; 94640; 94760; 96361; 96374; J0696; J2930; J7030; J7620; J7626; Q0144; Q9967; 99285-25

== ENCOUNTER → 2018-11-18 | Outpatient (CLI) | payer OTHER, MEDICARE ==
[2018-11-11 10:22] VITALS: BP 121/73
[~2018-11-18] MED LIST changes: +PRED20TA PO
--- NOTE | 2018-11-18 09:34 | RAD ---
Bilateral lower extremity venous duplex study 11/18/2018 8:35 AM Clinical History: History of pulmonary embolism, and recent deep venous thrombosis seen on lower extremity duplex ultrasound from September 2018. Persistent intermittent chest pain. Comparison: Bilateral lower extremity deep venous ultrasound September 24, 2018 Technique: Using a combination of real time ultrasound imaging and color-flow and pulse Doppler imaging techniques along with graded compression and augmentation, duplex evaluation of the deep venous system of the both lower extremities was performed. Multiple images were obtained. Findings: There is no sonographic evidence of deep venous thrombosis involving the visualized deep venous structures of either lower extremity.. Previously seen left lower extremity deep venous thrombosis is resolved. Impression: No evidence of current deep venous thrombosis involving either lower extremity Electronically signed by: Matthew Ferguson MD (11/18/2018 9:31 AM) [id number]
== END | disposition home or self-care (01) ==
LOC: US 09:03
PROVIDERS: ATTEND Internal Medicine Critical Care Medicine
DX: R07.9 Chest pain, unspecified (principal); Z86.711 Personal history of pulmonary embolism
CPT/HCPCS: 93970

== ENCOUNTER → 2019-02-16 | Outpatient (CLI) | payer OTHER, MEDICARE ==
[2019-02-02 10:53] VITALS: BP 124/77
[~2019-02-16] MED LIST changes: +CONTRAST GIVEN. MC PRN; +IOHEXOL 300 MG/ML 100ML VIAL. IV ONE
--- NOTE | 2019-02-16 09:52 | RAD ---
CT CHEST W/CONTRAST Indication: Lung cancer Technique: Postcontrast CT imaging was performed of the chest, multiplanar reconstruction images submitted. One or more of the following individualized dose reduction techniques were utilized for this examination: 1. Automated exposure control 2. Adjustment of the mA and/or kV according to patient size 3. Use of iterative reconstruction technique. Comparison: November 04, 2018 Findings: There is again volume loss of the left hemithorax although greater. There are again postsurgical changes of left hemithorax. There is again small quantity of pleural fluid more posteriorly. There is new small quantity of pleural fluid of the anterolateral left hemithorax, collection of fluid about 4.8 cm AP by 1.9 cm transverse image 32 series 2. There is some residual left perihilar density such as seen image 30 series 2 overall similar in appearance, some associated narrowing of the adjacent bronchi although somewhat less prominent. However there is increased more focal infiltrative density of the posterior left hemithorax located superior to the left hilar region image 24 through 30 measuring about 4 cm transverse by 3.1 cm AP by about 3.6 cm cc, abuts the posterior pleural surface. There is other more linear-appearing density abutting the left mediastinal border similar in appearance. Thoracic aortic caliber is within normal limits. There are calcified subcarinal nodes as seen previously. Small pretracheal node is stable. There is no new suspicious nodularity or pleural fluid of the right hemithorax. Slightly nodular appearance of the visualized left adrenal gland is similar. Some heterogeneous appearance of the spleen may be due to differential in perfusion. IMPRESSION: 1. There is somewhat increased volume loss of the left hemithorax with new focus of infiltrative density in the left suprahilar region, could be due to infiltrate although new mass not excluded for which short-term follow-up advised. There is a new small pocket of pleural fluid of the anterolateral left hemithorax, other minimal dependent pleural fluid of the left hemithorax unchanged. Electronically signed by: Hugo Burgess MD (02/16/2019 9:49 AM) [id number]
== END | disposition home or self-care (01) ==
LOC: CT 08:17
PROVIDERS: ATTEND Radiology Radiation Oncology
DX: C34.90 Malignant neoplasm of unspecified part of unspecified bronchus or lung (principal)
CPT/HCPCS: 71260; Q9967

== ENCOUNTER → 2019-03-16 | Outpatient (CLI) | payer OTHER, MEDICARE ==
[2019-02-16 09:57] VITALS: BP 137/89
[~2019-03-16] MED LIST changes: -CONTRAST GIVEN. MC PRN; -IOHEXOL 300 MG/ML 100ML VIAL. IV ONE
--- NOTE | 2019-03-16 12:16 | RAD ---
Right upper extremity venous duplex study 03/16/2019 12:12 PM Clinical History: Right upper extremity pain Technique: Using a combination of real time ultrasound imaging and color-flow and pulse Doppler imaging techniques, including spectral analysis, graded compression and augmentation, duplex evaluation of the deep venous system of the right upper extremity was performed. Multiple images were obtained. Findings: There is no sonographic evidence of deep venous thrombosis involving the visualized deep venous structures of the right upper extremity Impression: No evidence of deep venous thrombosis involving the right upper extremity Electronically signed by: Matthew Ferguson MD (03/16/2019 12:13 PM) [id number]
== END | disposition home or self-care (01) ==
LOC: US 10:26
PROVIDERS: ATTEND Internal Medicine Hematology & Oncology
DX: M79.601 Pain in right arm (principal); Z88.5 Allergy status to narcotic agent; Z88.8 Allergy status to other drugs, medicaments and biological substances
CPT/HCPCS: 93971

== ENCOUNTER → 2019-04-13 | Outpatient (CLI) | payer OTHER, MEDICARE ==
[2019-03-30 11:15] VITALS: BP 134/88
--- NOTE | 2019-04-13 09:37 | RAD ---
SHOULDER 2+V RIGHT 04/13/2019 12:00 AM INDICATION: Right shoulder pain COMPARISON: None available. TECHNIQUE: 3 views the right shoulder are provided. FINDINGS: There is no acute fracture or dislocation. Right chest wall infusion port catheter is partially profiled. Bone mineralization is within normal limits. Mild joint space narrowing of the acromioclavicular joint with inferiorly projecting osteophyte. Regional soft tissues are within normal limits. There is no soft tissue gas or osseous erosion. IMPRESSION: No acute fracture or dislocation. 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 Electronically signed by: Kate Urena MD (04/13/2019 9:33 AM) [id number]
== END | disposition home or self-care (01) ==
LOC: RAD 08:43
PROVIDERS: ATTEND Nurse Practitioner Gerontology
DX: M19.011 Primary osteoarthritis, right shoulder (principal); M25.711 Osteophyte, right shoulder
CPT/HCPCS: 73030

== ENCOUNTER → 2019-05-25 | Outpatient (CLI) | payer OTHER, MEDICARE ==
[~2019-05-25] MED LIST changes: +CONTRAST GIVEN. MC PRN; +HEPARIN PF 500 UNIT/5 ML DISP.SYRIN. IV ONE; +IOHEXOL 300 MG/ML 100ML VIAL. IJ ONE; +IOHEXOL 300 MG/ML 100ML VIAL. IV ONE
--- NOTE | 2019-05-25 09:23 | RAD ---
Examination: CT CHEST W/CONTRAST History: Lung cancer Comparison/Correlation: 02/16/2019 CT chest with contrast Findings: Axial images of the chest were obtained following IV contrast. Sagittal and coronal reformatted images were provided. Right central venous infusion port catheter tip terminates within the superior cavoatrial junction. Right lung field is clear. Left hilar surgical clips are present. Left upper lobe atelectasis is noted. Minimal aeration of the left lung is noted. Partial left lower lung field atelectasis is present. Partial loculation of left posterior basilar pleural fluid is noted. Left upper thoracic pleural effusion also is present. Subcarinal calcified lymph nodes are present. No enlarged thoracic lymph nodes and interval. Partially visualized upper abdomen is unremarkable. Degenerative changes of the lower cervical spine are noted. Impression: Progression of left lung atelectasis in the interval is evident with near complete atelectasis of the residual left lung in the interval. Partial left lobectomy again seen. A mass is not delineated. Correlate clinically. Further evaluation with PET CT exam. PQRS Compliance Statement: One or more of the following individualized dose reduction techniques were utilized for this examination: 1. Automated exposure control 2. Adjustment of the mA and/or kV according to patient size 3. Use of iterative reconstruction technique Electronically signed by: Alin Esquivel MD (05/25/2019 9:20 AM) [facility]
[2019-05-25 11:03] VITALS: BP 132/58
== END | disposition home or self-care (01) ==
LOC: CT 11:43
PROVIDERS: ATTEND Internal Medicine Critical Care Medicine
DX: C34.12 Malignant neoplasm of upper lobe, left bronchus or lung (principal); J90 Pleural effusion, not elsewhere classified; J98.11 Atelectasis
CPT/HCPCS: 71260; Q9967

== ENCOUNTER → 2019-06-02 | Day surgery (SDC) | payer OTHER, MEDICARE ==
[~2019-06-02] MED LIST changes: +ALBUTEROL SULFATE 2.5 MG/3 ML NEBU. NEB PRN; -CONTRAST GIVEN. MC PRN; +EPINEPHrine 1 MG/ML VIAL INJ PRN; -IOHEXOL 300 MG/ML 100ML VIAL. IJ ONE; -IOHEXOL 300 MG/ML 100ML VIAL. IV ONE; +IV RINGERS,LACTATED 1000ML 1,000 ML IV SCH; +LIDOCAINE 1% Multi-Dose 20 ML VIAL. INJ PRN; +LIDOCAINE 2% VISCOUS 100 ML BOTTLE. MM PRN; +LIDOCAINE 4% TOPICAL 50 ML SOLUTION. MM PRN; +ONDANSETRON PF 4 MG/2 ML VIAL. IV PRN; +PROCHLORPERAZINE 10 MG/2 ML VIAL. IV PRN; +PROPOFOL 20 ML IV ONE; +fentaNYL PF VIAL 100 MCG/2 ML VIAL IV PRN
[2019-06-02 12:59] LABS: BASO # 0.1 x10^3/uL (0.0-0.2); BASO % 1 % (0-3); EOS # 0.2 x10^3/uL (0.0-0.7); EOS % 3 % (0-3); HEMATOCRIT 40.6 % (39.0-53.0); HEMOGLOBIN 13.6 g/dL (13.0-17.5); LYMPH # 0.8 x10^3/uL (1.0-4.8); LYMPH % 12 % (24-48); MEAN CORPUSCULAR HEMOGLOBIN 28 pg (25-35); MEAN CORPUSCULAR HGB CONC 34 g/dL (31-37); MEAN CORPUSCULAR VOLUME 83 fL (79-100); MONO # 0.6 x10^3/uL (0.0-1.1); MONO % 9 % (0-9); NEUT # 4.8 x10^3/uL (1.8-7.7); NEUT % 75 % (31-73); PLATELET COUNT 188 x10^3/uL (140-400); PROTHROMBIN TIME PATIENT 13.3 SEC (11.7-14.0); RED BLOOD COUNT 4.88 x10^6/uL (4.30-5.70); RED CELL DISTRIBUTION WIDTH 15.7 % (11.5-14.5); WHITE BLOOD COUNT 6.4 x10^3/uL (4.0-11.0)
[2019-06-02 13:55] VITALS: BP 119/77
--- NOTE | 2019-06-02 17:03 | OP ---
DATE OF SURGERY: PROCEDURE: Bronchoscopy. INDICATIONS: Whiteout left lung, mucus plug versus progression of cancer. DESCRIPTION OF PROCEDURE: Informed consent was obtained from the patient and the and they both agreed to proceed with the procedure. Propofol was used for sedation. Bronch was introduced through the oral route. The upper airway was passed through the vocal cords. There were copious amount of white secretions seen in the distal trachea. The right lung was examined. Minimal white secretions seen in the right upper lobe, right middle and right lower lobe and they were all removed. Upon inspection of the left lung, the left lower lobe stump from prior lobectomy was patent. There was a near-complete occlusion of the left upper lobe bronchus. After secretions were removed, there was intense inflammation and possible mucosal tumor in the left upper lobe. This was causing a near-complete occlusion of the bronchus. I had suctioned vigorously and barely could see a pencil hole. The patient tolerated the procedure well. Bronchial wash was performed from the left upper lobe. IMPRESSION: 1. Copious amount of secretions seen in the distal trachea and proximal left main stem bronchus. All secretions were removed. 2. Near-complete occlusion of the opening of the left upper lobe by inflammatory mucosa with extrinsic compression and there may be mucosal tumor as well. After intense and vigorous suction,there may be a very tiny hole, which may allow aeration. We will have a chest x-ray in the next 24 hours to see any improvement. 3. The left lower lobectomy stump was patent. 4. Follow the bronchial wash cultures and cytology. PAT NORIEGA MD DR: ALYSSA/hung JOB#: [id number] / [id number] NICK
== END ==
LOC: SURG 12:08
PROVIDERS: ATTEND Internal Medicine Critical Care Medicine
DX: J98.4 Other disorders of lung (principal); Z79.01 Long term (current) use of anticoagulants
CPT/HCPCS: 31622; 36415; 85025; 85610; 87070; 87205; 94640; J0171; J2704; 88112

== ENCOUNTER → 2019-06-04 | Outpatient (CLI) | payer OTHER, MEDICARE ==
[2019-06-02 13:55] VITALS: BP 119/77
[~2019-06-04] MED LIST changes: -ALBUTEROL SULFATE 2.5 MG/3 ML NEBU. NEB PRN; -EPINEPHrine 1 MG/ML VIAL INJ PRN; -HEPARIN PF 500 UNIT/5 ML DISP.SYRIN. IV ONE; -IV RINGERS,LACTATED 1000ML 1,000 ML IV SCH; -LIDOCAINE 1% Multi-Dose 20 ML VIAL. INJ PRN; -LIDOCAINE 2% VISCOUS 100 ML BOTTLE. MM PRN; -LIDOCAINE 4% TOPICAL 50 ML SOLUTION. MM PRN; -ONDANSETRON PF 4 MG/2 ML VIAL. IV PRN; -PROCHLORPERAZINE 10 MG/2 ML VIAL. IV PRN; -PROPOFOL 20 ML IV ONE; -fentaNYL PF VIAL 100 MCG/2 ML VIAL IV PRN
--- NOTE | 2019-06-04 17:00 | RAD ---
Chest, PA and Lateral: Technique: PA and lateral views of the chest were obtained. History: Lung cancer. Comparison: 05/25/2019 CT. Findings/ impression: There is complete volume loss of the left lung likely partial lobectomy changes with collapsed or atelectasis of the remaining left lung. The mediastinum is shifted to the left. This is similar to recent CT scan from 05/25/2019. Right-sided Port-A-Cath is unchanged. The right lung grossly appears unremarkable. Electronically signed by: Severino Chu MD (06/04/2019 4:57 PM) [facility]
== END | disposition home or self-care (01) ==
LOC: RAD 12:55
PROVIDERS: ATTEND Internal Medicine Critical Care Medicine
DX: C34.92 Malignant neoplasm of unspecified part of left bronchus or lung (principal)
CPT/HCPCS: 71046

== ENCOUNTER → 2019-06-08 | Outpatient (CLI) | payer OTHER, MEDICARE ==
[2019-06-02 13:55] VITALS: BP 119/77
[2019-06-08 09:05] LABS: BASO % 1 % (0-3); EOS # 0.2 x10^3/uL (0.0-0.7); EOS % 2 % (0-3); HEMOGLOBIN 14.2 g/dL (13.0-17.5); LYMPH # 1.2 x10^3/uL (1.0-4.8); LYMPH % 14 % (24-48); MEAN CORPUSCULAR HEMOGLOBIN 28 pg (25-35); MEAN CORPUSCULAR HGB CONC 33 g/dL (31-37); MEAN CORPUSCULAR VOLUME 83 fL (79-100); MONO # 0.8 x10^3/uL (0.0-1.1); MONO % 10 % (0-9); NEUT # 6.1 x10^3/uL (1.8-7.7); NEUT % 73 % (31-73); PLATELET COUNT 213 x10^3/uL (140-400); RED BLOOD COUNT 5.16 x10^6/uL (4.30-5.70); RED CELL DISTRIBUTION WIDTH 15.5 % (11.5-14.5); WHITE BLOOD COUNT 8.4 x10^3/uL (4.0-11.0)
[2019-06-08 09:38] LABS: ALBUMIN 3.6 g/dL (3.4-5.0); ALBUMIN/GLOBULIN RATIO 1.1 (1.0-1.7); CALCIUM 9.1 mg/dL (8.5-10.1); CREATININE 1.1 mg/dL (0.7-1.3); GFR 67.6; POTASSIUM 4.5 mmol/L (3.5-5.1); TOTAL BILIRUBIN 0.3 mg/dL (0.2-1.0); TOTAL PROTEIN 6.9 g/dL (6.4-8.2)
== END | disposition home or self-care (01) ==
LOC: LAB 08:41
PROVIDERS: ATTEND Psychiatry & Neurology Child & Adolescent Psychiatry
DX: C34.12 Malignant neoplasm of upper lobe, left bronchus or lung (principal); M10.9 Gout, unspecified; Z79.899 Other long term (current) drug therapy
CPT/HCPCS: 36415; 80053; 84443; 85025

== ENCOUNTER → 2019-07-16 | Outpatient (CLI) | payer OTHER, MEDICARE ==
[2019-06-22 10:58] VITALS: BP 125/75
[~2019-07-16] MED LIST changes: +CONTRAST GIVEN. MC PRN; +HEPARIN PF 500 UNIT/5 ML DISP.SYRIN. IVP ONE; +IOHEXOL 350 MG/ML 100 ML VIAL. IV ONE
--- NOTE | 2019-07-16 08:26 | RAD ---
CT ANGIOGRAPHY CHEST INDICATION: Dyspnea. History of lung cancer. Comparison: Chest radiograph 06/04/2019. CT chest 05/25/2019. TECHNIQUE: Following the uneventful administration of intravenous contrast, 100 cc Omnipaque 350, axial CT sections were obtained through the lungs and upper abdomen. Multiplanar reconstructions and MIP images were obtained. RS compliance statement: One or more of the following individualized dose reduction techniques were utilized for this examination: 1. Automated exposure control 2. Adjustment of the mA and/or kV according to patient size 3. Use of iterative reconstruction technique FINDINGS: Pulmonary vasculature: No evidence of pulmonary thromboembolic disease. Lungs and Airways: Postsurgical changes of left lower lobectomy. Unchanged near complete left upper lobe atelectasis. Persistent soft tissue encasement and narrowing of left hilar bronchovascular structures. No right lung mass or consolidation. Pleura: Stable left pleural fluid. Heart and Mediastinum: Stable thyroid. No axillary or supraclavicular lymphadenopathy. The mediastinal lymphadenopathy. Stable calcified subcarinal lymph node, consistent with remote granulomatous disease. The heart and pericardium are within normal limits. Atherosclerosis of the thoracic aorta. Abdomen: Limited images through the upper abdomen show no abnormality of the visualized organs. Bones and Soft Tissues: Degenerative changes spine. Right Port-A-Cath. IMPRESSION: 1. No evidence of pulmonary thromboembolic disease. 2. Similar appearance of the left hemithorax, including left lower lobectomy, soft tissue encasement and narrowing of left hilar bronchovascular structures, and near complete left upper lobe atelectasis. 3. No right lung mass or consolidation. No mediastinal lymphadenopathy. Electronically signed by: Hugo Stephenson MD (07/16/2019 8:24 AM) [facility]
== END | disposition home or self-care (01) ==
LOC: CT 07:23
PROVIDERS: ATTEND Internal Medicine Critical Care Medicine
DX: J98.11 Atelectasis (principal); I70.0 Atherosclerosis of aorta; R59.0 Localized enlarged lymph nodes; Z85.118 Personal history of other malignant neoplasm of bronchus and lung
CPT/HCPCS: 71275; Q9967

== ENCOUNTER → 2019-07-20 | Outpatient (CLI) | payer OTHER, MEDICARE ==
[~2019-07-20] MED LIST changes: -CONTRAST GIVEN. MC PRN; -HEPARIN PF 500 UNIT/5 ML DISP.SYRIN. IVP ONE; -IOHEXOL 350 MG/ML 100 ML VIAL. IV ONE
[2019-07-20 08:05] VITALS: BP 148/84
--- NOTE | 2019-07-20 11:22 | RAD ---
EXAM: Left lower extremity venous Doppler. HISTORY: Left lower extremity pain/swelling. COMPARISON: None. FINDINGS: Grayscale and Doppler analysis of the left lower extremity deep venous system was performed with graded compression and augmentation. The common femoral, greater saphenous, superficial femoral, popliteal and calf veins were assessed. There is no evidence of deep venous thrombosis. IMPRESSION: 1. No evidence of deep venous thrombosis. Electronically signed by: Hector Hudson MD (07/20/2019 11:19 AM) [facility]
== END | disposition home or self-care (01) ==
LOC: US 09:58
PROVIDERS: ATTEND Internal Medicine Hematology & Oncology
DX: M79.605 Pain in left leg (principal); R22.42 Localized swelling, mass and lump, left lower limb; R53.83 Other fatigue
CPT/HCPCS: 93971

== ENCOUNTER → 2019-09-17 | Outpatient (CLI) | payer OTHER, MEDICARE ==
[2019-09-14 10:48] VITALS: BP 130/77
[~2019-09-17] MED LIST changes: +GADOTERATE 5 MMOL/10ML VIAL. IVP ONE
--- NOTE | 2019-09-18 11:57 | RAD ---
LUMBAR SPINE WO/W CONTRAST History: Degenerative disc disease. Technique: Multiplanar, multi sequential MR imaging was performed of the lumbar spine without and with contrast. Comparison: July 22, 2017 Findings: Normal vertebral body height and alignment. No fracture. Conus terminates at the normal location. No evidence of nerve root clumping. No pathologic enhancement. L1-L2: Small posterior disc bulge. Mild facet arthropathy. No canal or neuroforaminal narrowing. L2-L3: Small posterior disc bulge. Mild facet arthropathy. No canal narrowing. Mild bilateral neural foraminal narrowing. L3-L4: Small posterior disc bulge. Mild facet arthropathy. Bilateral subarticular recess narrowing. No canal narrowing. Mild neural foraminal narrowing. L4-L5: Broad-based posterior disc bulge with superimposed right subarticular disc extrusion. Moderate right neuroforaminal narrowing with abutment of the exiting right L4 nerve root. Postop changes right hemilaminectomy. Moderate facet arthropathy. No left neuroforaminal narrowing. L5-S1: Small posterior disc bulge. Mild facet arthropathy. No canal narrowing. No neuroforaminal narrowing. Impression: 1. Mild multilevel lumbar spondylosis. 2. Right L4-L5 foraminal disc extrusion contributing to moderate right neuroforaminal narrowing with abutment of the exiting right L4 nerve root, similar compared to prior. Correlate for radiculopathy. 3. Interval postoperative changes L4-L5. Electronically signed by: Osiel Purcell DO (09/18/2019 11:54 AM) [facility]
== END | disposition home or self-care (01) ==
LOC: MRI 08:31
PROVIDERS: ATTEND Family Medicine
DX: M51.27 Other intervertebral disc displacement, lumbosacral region (principal); M48.061 Spinal stenosis, lumbar region without neurogenic claudication; M12.88 Other specific arthropathies, not elsewhere classified, other specified site
CPT/HCPCS: 72158; A9575

== ENCOUNTER → 2019-09-29 | Outpatient (CLI) | payer OTHER, MEDICARE ==
[2019-09-28 10:37] VITALS: BP 140/81
[~2019-09-29] MED LIST changes: +CYCL10TA2 PO; -GADOTERATE 5 MMOL/10ML VIAL. IVP ONE
--- NOTE | 2019-09-29 11:55 | PAIN ---
DATE OF SERVICE: 09/29/2019 PROGRESS NOTE FOR PAIN CLINIC DIAGNOSES: Lumbar radiculopathy with lumbar degenerative disk disease, lumbar herniated disk and post-lumbar laminectomy syndrome. HISTORY OF PRESENT ILLNESS: The patient is a 64-year-old male who returns for followup status post lumbar epidural steroid injections, last seen on 08/21/2017. The patient since then has had diskectomy in 09/2017 with good relief of the pain until about 2 weeks ago, the patient was coughing significantly and had increased pain across the low back radiating into his right lower extremity now in the lateral aspect of the gluteus, lateral thigh, lateral anterior thigh and medial lower leg on the right side only. The patient reports that it is similar to what he had prior to surgery and has been getting worse with standing and walking over the past 2 weeks, better with sitting or lying down. It is a 10 on a scale of 10 at its worst over the past week, 7 on average, 3 at its least and is a 7 today. The patient did have MRI scan earlier this month, 09/17 showing right L4-L5 foraminal disk extrusion contributing to moderate right neural foraminal narrowing with abutment of the exiting right L4 nerve root, but similar to compared previous study in 07/2017. The patient reports no loss of motor function, but significant fatigability with the right lower extremity with walking, standing, and changing positions. The patient reports no new motor or sensory deficits, no new bowel or bladder incontinence. PHYSICAL EXAMINATION: VITAL SIGNS: The patient's blood pressure 140/80, pulse 88, respirations 18, temperature 97.4 degrees Fahrenheit, height is 6 feet, weight is 212 pounds. GENERAL: The patient is awake, alert, oriented, appropriate, very pleasant demeanor. HEENT: Shows normocephalic, atraumatic. Extraocular movements are intact and symmetrical. Oral cavity: Mucous membranes are moist and pink. Dentition is intact. NECK: Shows anterior throat supple without palpable lymphadenopathy noted. Swallow reflex symmetrical. CHEST: Shows normal on inspection. Breath sounds are decreased on the left, but clear on the right. HEART: S1, S2 is clear without murmurs. ABDOMEN: Soft, nontender, nondistended. BACK: Shows spine grossly in the midline. Lumbar paraspinous muscle shows symmetrical on inspection with palpation shows some moderate tenderness, well-healed surgical scar without significant radiation in the middle and lower distribution of paraspinous muscles, upper paraspinous musculature is nontender. The patient shows no tenderness over the spinous processes, sacrum or sacroiliac regions. EXTREMITIES: Lower extremities show deep tendon reflexes 2+ in the patellar, 1+ tendo-calcaneus tendons. Motor exam is strong with 5/5 dorsiflexion, extension, quadriceps and hamstring flexion with some moderate pain with resistance and quadriceps flexion on the right side only. Peripheral pulses are 1+ posterior tibia. No peripheral edema is noted bilaterally. PLAN: Options were discussed with the patient. The patient's old chart was reviewed as his current medication regimen updated. Current review of systems updated today as well and we will proceed with checking with his prescribing physician, fluorescent lamp replacer to hold the Eliquis for 3 days prior to lumbar epidural steroid injection. The patient recently had a prednisone taper pack from his primary care physician, which was helpful, but only moderately so over the past 12 days. We will check with his fluorescent lamp replacer if this is deemed safe and appropriate to hold the Eliquis for 3 days. We will have him return for lumbar epidural steroid injection at that time. MIR ALANIZ MD DR: AVILA/hung JOB#: [id number] / [id number]
== END | disposition home or self-care (01) ==
LOC: PNCL 09:01
PROVIDERS: ATTEND Anesthesiology
DX: M51.16 Intervertebral disc disorders with radiculopathy, lumbar region (principal); M96.1 Postlaminectomy syndrome, not elsewhere classified
CPT/HCPCS: G0463

== ENCOUNTER → 2019-10-07 | Outpatient (CLI) | payer OTHER, MEDICARE ==
[2019-09-28 10:37] VITALS: BP 140/81
[~2019-10-07] MED LIST changes: +IOHEXOL 180 MG/ML 10 ML VIAL. ONE; +methylPREDNISolone ACETATE 40 MG/ML VIAL. ONE; +methylPREDNISolone ACETATE 80 MG/ML VIAL. ONE
--- NOTE | 2019-10-07 09:14 | PAIN ---
DATE OF SERVICE: 10/07/2019 PROGRESS NOTE FOR PAIN CLINIC DIAGNOSES: Lumbar radiculopathy with lumbar degenerative disk disease and lumbar herniated disk with post-lumbar laminectomy syndrome. HISTORY OF PRESENT ILLNESS: The patient is a 64-year-old male who returns for followup status post evaluation and clearance to hold his Eliquis. He has been off this for 3 days now and returns with still significant pain reported in the low back and right lower extremity, posterior gluteus, posterolateral thigh, lateral anterior thigh, and medial thigh as previously. The patient reports it is a 10 on a scale of 10 at its worst over the past week, 7 on average, 4 at its least and is a 4 today. The patient reports it is stabbing, sharp, shooting, becoming more constant and aching in the leg as well, worse with walking and standing, better with sitting or lying down, does awaken him from sleep about every 1-2 hours. The patient reports no new motor or sensory deficits, no new bowel or bladder incontinence or other complaints. PHYSICAL EXAMINATION: VITAL SIGNS: The patient's blood pressure 144/96, pulse 99, respirations 16, temperature is 98.1 degrees Fahrenheit, height is 6 feet, weight is 214 pounds. GENERAL: The patient is awake, alert, oriented, appropriate, very pleasant demeanor. HEENT: Shows normocephalic, atraumatic with some skin scarring noted as well on previous exam. Extraocular movements are intact and symmetrical. Oral cavity: Mucous membranes moist and pink. Dentition is intact. NECK: Shows anterior throat supple. CHEST: Shows normal on inspection. Breath sounds are clear bilaterally. HEART: Shows S1, S2 clear. No murmurs auscultated. ABDOMEN: Soft, nontender, and nondistended. No palpable organomegaly is noted. No rebound or guarding demonstrated. BACK: Shows spine grossly in the midline. Again, some well-healing surgical scarring from previous skin grafts is noted. The patient's back shows good rotational motion both laterally as well as extension and flexion without significant difficulty. EXTREMITIES: The patient's lower extremities show deep tendon reflexes 2+ in the patellar and 1+ in tendo-calcaneus tendons. Motor exam is strong with 5/5 dorsiflexion, extension, quadriceps and hamstring flexion and symmetrical. Peripheral pulses are 1+ in posterior tibia. No peripheral edema is noted. Options were discussed with the patient. The patient's old chart was reviewed as his current medication regimen updated. Current review of systems updated today as well. We will proceed with a lumbar epidural steroid injection today with fluoroscopic guidance. Risks were again discussed including, but not limited to bleeding, infection, possibility of epidural hematoma, subsequent neurological compromise, dural puncture, headaches, spinal cord and/or nerve damage, side effects of steroid medication and poor results regarding pain control. The patient understands and wished to proceed. The patient will return to clinic in approximately 2 weeks for followup. She was counseled on return appointment, activity level and side effects to be aware of. DIAGNOSES: Lumbar radiculopathy with lumbar degenerative disk disease, lumbar herniated disk and lumbar post-laminectomy syndrome. PROCEDURE: Lumbar epidural steroid injection, translaminar approach at L4-L5 level using C-arm fluoroscopic guidance under sterile prep and drape using local anesthetic. MEDICATIONS INJECTED: A total of 120 mg Depo-Medrol plus 10 mL of preservative-free normal saline and 2 mL of contrast. CONDITION AT DISCHARGE: Stable. The patient tolerated the procedure well, had no complications. MIR ALANIZ MD DR: AVILA/hung JOB#: [id number] / [id number]
== END | disposition home or self-care (01) ==
LOC: PNCL 07:45
PROVIDERS: ATTEND Anesthesiology
DX: M51.16 Intervertebral disc disorders with radiculopathy, lumbar region (principal); M96.1 Postlaminectomy syndrome, not elsewhere classified; Z98.890 Other specified postprocedural states; Z88.8 Allergy status to other drugs, medicaments and biological substances; Z91.048 Other nonmedicinal substance allergy status
CPT/HCPCS: 62323; J1030; J1040; Q9965

== ENCOUNTER → 2019-10-21 | Outpatient (CLI) | payer OTHER, MEDICARE ==
[2019-10-12 10:17] VITALS: BP 138/88
--- NOTE | 2019-10-21 08:56 | PAIN ---
DATE OF SERVICE: 10/21/2019 PROGRESS NOTE FOR PAIN CLINIC DIAGNOSES: Lumbar radiculopathy with lumbar degenerative disk disease with lumbar herniated disk and post-lumbar laminectomy syndrome. HISTORY OF PRESENT ILLNESS: The patient is a 64-year-old male who returns for followup status post lumbar epidural steroid injection x 1. The patient reports about 50% improvement for a few days after the injection, but the pain is still significant across the low back into the right greater than left lower extremity, posterior gluteus, posterolateral thigh, lateral anterior thigh, medial thigh, but some pain on the left side as well and was flared up significantly last night. The patient reports his pain is cramping, sharp, shooting, unbearable at times, rated as a 10 on a scale of 10 at its worst over the past week, 7 on average and 4 at its least and is a 7 today. The patient reports no new motor or sensory deficits, no new bowel or bladder incontinence. The patient has been off his Eliquis now for 4 days. PHYSICAL EXAMINATION: VITAL SIGNS: The patient's blood pressure 140/92, pulse 114, respirations 16, temperature is 97.3 degrees Fahrenheit, height is 6 feet, weighs 219 pounds. GENERAL: The patient is awake, alert, oriented, appropriate, very pleasant demeanor. HEENT: Head shows normocephalic, atraumatic. Extraocular movements are intact and symmetrical. Oral cavity: Mucous membranes moist and pink. Dentition is intact. NECK: Shows anterior throat supple. CHEST: Shows normal on inspection. Breath sounds are clear bilaterally. HEART: Shows S1, S2 clear. ABDOMEN: Soft, nontender. BACK: Shows spine grossly in the midline. Well-healed surgical scars noted in the lumbar distribution as well as skin grafting scars as previous. The patient's lumbar paraspinous muscle shows symmetrical on inspection, on palpation shows some moderate tenderness diffusely bilaterally going diffusely throughout the upper, middle and lower distribution of paraspinous muscles bilaterally. The patient has good rotational motion of lumbar spine, both laterally as well as extension and flexion without significant difficulty. EXTREMITIES: Lower extremities show deep tendon reflexes 2+ in the patellar, 1+ tendo-calcaneus tendons. Motor exam is strong with 5/5 dorsiflexion, extension, equal. Peripheral pulses are 1+. No peripheral edema is noted. Options were discussed with the patient. The patient's old chart was reviewed as his current medication regimen updated. Current review of systems updated today as well. We will proceed with a second in the series of lumbar epidural steroid injection today with fluoroscopic guidance. Risks were again discussed including, but not limited to bleeding, infection, possibility of epidural hematoma, subsequent neurological compromise, dural puncture, headaches, spinal cord and/or nerve damage, side effects of steroid medication and poor results regarding pain control. The patient understands and wished to proceed. The patient will return to clinic in approximately 2 weeks for followup. He was counseled as to return appointment, activity level and side effects to be aware of. DIAGNOSIS: Lumbar radiculopathy with lumbar degenerative disk disease with lumbar herniated disk and post-lumbar laminectomy syndrome. PROCEDURE: Lumbar epidural steroid injection, translaminar approach L4-L5 level using C-arm fluoroscopic guidance under sterile prep and drape using local anesthetic. MEDICATION INJECTED: A total of 120 mg Depo-Medrol plus 10 mL of preservative-free normal saline and 2 mL of contrast. CONDITION AT DISCHARGE: Stable. The patient tolerated the procedure well, had no complications. MIR ALANIZ MD DR: AVILA/hung JOB#: [id number] / [id number]
== END ==
LOC: PNCL 07:55
PROVIDERS: ATTEND Anesthesiology
DX: M51.16 Intervertebral disc disorders with radiculopathy, lumbar region (principal); M96.1 Postlaminectomy syndrome, not elsewhere classified
CPT/HCPCS: 62323; J1030; J1040; Q9965

== ENCOUNTER → 2019-11-02 | Outpatient (CLI) | payer OTHER, MEDICARE ==
[2019-10-12 10:17] VITALS: BP 138/88
[~2019-11-02] MED LIST changes: +CONTRAST GIVEN. MC PRN; +GABA-585 PO; +HEPARIN PF 500 UNIT/5 ML DISP.SYRIN. IVP ONE; -IOHEXOL 180 MG/ML 10 ML VIAL. ONE; +IOHEXOL 300 MG/ML 100ML VIAL. IV ONE; -methylPREDNISolone ACETATE 40 MG/ML VIAL. ONE; -methylPREDNISolone ACETATE 80 MG/ML VIAL. ONE
--- NOTE | 2019-11-02 08:45 | RAD ---
PQRS Compliance Statement: One or more of the following individualized dose reduction techniques were utilized for this examination: 1. Automated exposure control 2. Adjustment of the mA and/or kV according to patient size 3. Use of iterative reconstruction technique CT CHEST W/CONTRAST Clinical Indication: Left upper lobe lung cancer. Comparison: CT chest with contrast, July 16 2019. TECHNIQUE: Helical CT imaging of the chest is performed after 75 cc of Omnipaque 300 IV contrast. Findings: Right chest Port-A-Cath. No mediastinal or hilar adenopathy. No large central pulmonary embolus. Great vessels are stable. Cardiac size normal, no pericardial effusion. Postsurgical changes of left lobectomy. Mediastinal shift to the left. Left pleural effusion and pleural thickening are improved. Consolidation in the left lung is improved. Trachea is patent. Right lung remains clear. Visualized upper abdomen is unremarkable. There are multiple old left rib fractures. IMPRESSION: 1. No CT evidence of metastatic disease. 2. Postsurgical changes of left lung. Left pleural effusion/pleural thickening and left lung consolidation are improved. Electronically signed by: Brayan Kiran MD (11/02/2019 8:42 AM) [id number]
== END | disposition home or self-care (01) ==
LOC: CT 07:40
PROVIDERS: ATTEND Internal Medicine Hematology & Oncology
DX: C34.12 Malignant neoplasm of upper lobe, left bronchus or lung (principal); J90 Pleural effusion, not elsewhere classified; J18.1 Lobar pneumonia, unspecified organism; J92.9 Pleural plaque without asbestos; R93.89 Abnormal findings on diagnostic imaging of other specified body structures
CPT/HCPCS: 71260; J1642; Q9967

== ENCOUNTER → 2019-11-04 | Outpatient (CLI) | payer OTHER, MEDICARE ==
[2019-10-12 10:17] VITALS: BP 138/88
[~2019-11-04] MED LIST changes: -CONTRAST GIVEN. MC PRN; -HEPARIN PF 500 UNIT/5 ML DISP.SYRIN. IVP ONE; -IOHEXOL 300 MG/ML 100ML VIAL. IV ONE
--- NOTE | 2019-11-04 09:52 | PAIN ---
DATE OF SERVICE: 11/04/2019 PROGRESS NOTE FOR PAIN CLINIC DIAGNOSES: Lumbar radiculopathy with lumbar degenerative disk disease with lumbar herniated disk and post-lumbar laminectomy syndrome. HISTORY OF PRESENT ILLNESS: The patient is a 64-year-old male who returns for followup status post lumbar epidural steroid injections x 2. The patient reports no significant improvement after the last injection. The first injection was partly improved, but his last injection that had no significant difference. The patient reports the pain is worsening in the low back and the right posterior gluteus, posterolateral thigh, lateral, anterior and medial thigh on the right only. The patient reports it is worse with walking, standing, changing positions, better with sitting or lying down. It is aching, sharp and shooting in quality, becoming more constant, more unbearable. The patient reports 10 on a scale of 10 at its worst past week, reports 8 on average and a 5 at its least and is an 8 today. The patient reports no new motor or sensory deficits, no new bowel or bladder incontinence, but still significant pain. PHYSICAL EXAMINATION: VITAL SIGNS: The patient's blood pressure 114/64, pulse 104, respirations 16, temperature 97.4 degrees Fahrenheit, height 6 feet, weight is 220 pounds. GENERAL: The patient is awake, alert, oriented, appropriate, very pleasant demeanor. HEENT: Head shows normocephalic, atraumatic. Extraocular movements are intact and symmetrical. Oral cavity: Mucous membranes moist and pink. Dentition is intact. SKIN: Shows multiple skin grafts from previous injury and pierce. CHEST: Shows normal on inspection, with surgical scarring noted. Breath sounds are clear bilaterally. HEART: Shows S1, S2 clear. ABDOMEN: Soft, nontender, nondistended. BACK: Shows spine grossly in the midline. Slight exaggeration of thoracic kyphosis and minor flattening of lumbar lordotic curvature. Lumbar paraspinous muscle shows symmetrical on inspection, well-healed surgical scar noted. With palpation shows some moderate tenderness diffusely throughout the upper, middle and lower distribution of paraspinous muscles, but only diffusely without significant radiation. The patient has good rotational motion of lumbar spine, both laterally as well as extension and flexion without significant pain reported. EXTREMITIES: Lower extremities show deep tendon reflexes 2+ in the patellar, 1+ tendo-calcaneus tendons. Motor exam is strong with 5/5 dorsiflexion, extension, quadriceps and hamstring flexion symmetrical. Peripheral pulses are 1+. No peripheral edema is noted. Options were discussed with the patient. The patient's old chart was reviewed as his current medication regimen updated. Current review of systems updated today as well. We will hold on any further injections at this time as the patient is not doing significantly better after 2 injections, I would like to hold on any further, would like to follow up with his neurosurgeon and we will make those arrangements. He had surgery approximately 14 months ago and the pain returned fairly significantly in the low back, right lower extremity in a L4-L5 radicular pattern. The patient will maintain stretching and strengthening exercises. I will have him follow up with Neurosurgery and follow up currently here as needed. MIR ALANIZ MD DR: AVILA/hung JOB#: [id number] / [id number]
== END | disposition home or self-care (01) ==
LOC: PNCL 08:04
PROVIDERS: ATTEND Anesthesiology
DX: M51.16 Intervertebral disc disorders with radiculopathy, lumbar region (principal); M96.1 Postlaminectomy syndrome, not elsewhere classified
CPT/HCPCS: G0463

== ENCOUNTER 2019-11-10 07:02 | Outpatient (CLI) | payer OTHER, MEDICARE ==
[~2019-11-10] VITALS: Ht 182.9 cm; Wt 99.8 kg
[2019-11-10 07:42] VITALS: BP 139/80
[2019-11-10 07:43] LABS: PROTHROMBIN TIME PATIENT 12.2 SEC (11.7-14.0)
[2019-11-10] MEDS ORDERED: LIDOCAINE 1%/EPI 1:100,000 20 ML VIAL. ONE (08:20)
[2019-11-10] MEDS: LIDOCAINE 1%/EPI 1:100,000 20 ML VIAL. INJ ONE ×2 (08:37→08:38)
[2019-11-10 08:55] VITALS: BP 146/85
[2019-11-10 09:10] VITALS: BP 152/87
[2019-11-10 09:25] VITALS: BP 132/83
--- NOTE | 2019-11-10 09:46 | NUR ---
Discharge Note: DEBBIE SHARIF Discharge instructions and discharge home medications reviewed with Patient and Spouse and a copy given. All questions have been answered and understanding verbalized. The following instructions and handouts were given: Incisional care Discontinued lines and drains: Right chest port a cath removed. No other lines to dc. Patient discharged to Home with Spouse via Ambulated.
--- NOTE | 2019-11-10 14:58 | RAD ---
11/10/2019 12:53 PM Removal of right internal jugular PowerPort Indication: No longer requires central venous access for chemotherapy Discussion: The risks and benefits of the procedure were discussed the patient. Informed consent was obtained. A timeout procedure was performed. The right chest was prepped and draped using maximum sterile barrier technique. All elements of maximal sterile barrier technique including the use of a cap, mask, sterile gown, sterile gloves, large sterile sheet, appropriate hand hygiene, and 2% chlorhexidine for cutaneous antisepsis (or acceptable alternative antiseptic per current guidelines) were followed for this procedure. 1% lidocaine was administered for local anesthesia. Small incision was made overlying the port reservoir. The port was removed intact. The wound was closed in layers using 4-0 Vicryl suture. Complete removal was confirmed with before and after fluoroscopy. Sterile dressings were applied. No immediate complications were identified. Anesthesia:: Local only. Total fluoroscopy time: 0.1 min Dose area product: 0.1 Gycm2 Impression removal of right internal jugular PowerPort
[2019-11-20] MEDS ORDERED: GABA300C18 PO (13:39)
[2019-11-28] MEDS ORDERED: DOCU-153 PO (12:10)
[2019-11-28] MEDS ORDERED: HYDR-2761 PO (12:10)
== END 2019-11-10 09:52 | disposition home or self-care (01) ==
LOC: INTRAD 07:02
PROVIDERS: ATTEND Internal Medicine Hematology & Oncology
DX: Z45.2 Encounter for adjustment and management of vascular access device (principal); J44.9 Chronic obstructive pulmonary disease, unspecified; M19.90 Unspecified osteoarthritis, unspecified site; M10.9 Gout, unspecified; Z88.8 Allergy status to other drugs, medicaments and biological substances; Z91.048 Other nonmedicinal substance allergy status; Z85.118 Personal history of other malignant neoplasm of bronchus and lung; Z98.890 Other specified postprocedural states; Z88.6 Allergy status to analgesic agent; Z86.718 Personal history of other venous thrombosis and embolism
CPT/HCPCS: 36415; 36590; 77001; 85610; J3490

== ENCOUNTER → 2019-11-20 | Outpatient (CLI) | payer OTHER, MEDICARE ==
[2019-11-10 09:25] VITALS: BP 132/83
[~2019-11-20] MED LIST changes: +GABA300C18 PO
--- NOTE | 2019-11-20 13:29 | EKG ---
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
[2019-11-20 13:38] LABS: PROTHROMBIN TIME PATIENT 13.8 SEC (11.7-14.0)
== END | disposition home or self-care (01) ==
LOC: SURGPAT 12:33
PROVIDERS: ATTEND Neurological Surgery
DX: Z01.818 Encounter for other preprocedural examination (principal); R00.0 Tachycardia, unspecified; D50.8 Other iron deficiency anemias; D72.1 Eosinophilia
CPT/HCPCS: 36415; 85610; 85730; 87641; 93005

== ENCOUNTER 2019-11-27 07:13 | Observation (INO) | payer OTHER, MEDICARE ==
--- NOTE | 2019-11-25 16:02 | HP ---
ADMIT DATE: 11/27/2019 PREOPERATIVE HISTORY AND PHYSICAL DATE OF SURGERY: 11/27/2019 HISTORY OF PRESENT ILLNESS: The patient is a pleasant 64-year-old, who has difficulty with low back pain and pain which radiates into his right anterior thigh. In 09/2017, he underwent surgery at L4-L5 on the right and did well from that operation. Then in 09/2019, he noted after coughing the development of severe low back pain on the right side and right anterior thigh pain. This is different from the pain he has experienced previously, which was in his lateral thigh. Currently, the pain is 8/10. It can increase to 10/10. The pain is relatively constant. He notes increasing discomfort with standing, walking, and sitting for any length of time. He is taking gabapentin, Flexeril, and meloxicam. He had anterior epidural steroid injections without benefit. Importantly, he has recently finished chemotherapy for lung cancer. He had pulmonary embolism during that treatment and is currently on Eliquis. PAST MEDICAL HISTORY: Arthritis, asthma, gout, chronic obstructive pulmonary disease, hypertension, pierce, lung cancer, and pulmonary embolism. PAST SURGICAL HISTORY: Lumbar decompression at L4-L5 on the right in 09/2017 and hernia repair. FAMILY HISTORY: Spine problems. SOCIAL HISTORY: Retired; ; exercises rarely; denies substance abuse; smoked 1 pack per day for 45 years, quit smoking more than 1 year ago; drinks alcohol 1-2 times per week. ALLERGIES: PAXIL AND PERCOCET. CURRENT MEDICATIONS: Allopurinol, meloxicam, gabapentin, Flexeril, Eliquis, ProAir HFA, and Symbicort. REVIEW OF SYSTEMS: A 12-point review of systems was obtained and is noncontributory except for that mentioned above. PHYSICAL EXAMINATION: GENERAL APPEARANCE: On neurosurgery examination, alert, pleasant, no acute distress. HEENT: Head is normocephalic and atraumatic. SKIN: Warm and dry. MUSCULOSKELETAL: Lumbar paraspinal muscle bulk is normal, restricted range of motion of the lumbar spine, [id number] tenderness of the lower lumbar spine with palpation, normal range of motion of the lower extremities bilaterally. EXTREMITIES: No clubbing, cyanosis, or edema. NEUROLOGIC: Alert and oriented x3; normal recent and remote memory; strength 5/5 in bilateral lower extremities. Sensory is intact to light touch in bilateral lower extremities except for decrease in the right anterior thigh. Reflexes are present and symmetric in lower extremities bilaterally except for an absent right knee jerk, negative straight leg raise bilaterally, and normal gait. IMAGING: I reviewed his lumbar MRI scan. On that study, the principal abnormality is at L4-L5 with postoperative changes on the right. There is also foraminal disc extrusion. This is markedly compressing the right L4 nerve root. ASSESSMENT AND PLAN: Intervertebral disk disorders with radiculopathy, lumbar region. I had a new right foraminal disk extrusion, which is associated with severe pain. At this point, his activities are relatively sedentary. I am planning to perform a transfacet exposure at L4-L5 with removal of the herniated disk and decompressing the root. At this point, I am not planning on adding instrumentation. I explained to him that he could develop severe chronic back pain, which could require posterior instrumentation in the future. He understands. He would like to go ahead. We will make the arrangements for surgery. He has been cleared. DOELL RAZO MD DR: BOB/hung JOB#: [id number] / [id number] NICK
[~2019-11-27] VITALS: Ht 182.9 cm; Wt 100.5 kg
[2019-11-27] VITALS (9 sets, daily range): BP systolic 121–141; BP diastolic 72–93
[~2019-11-27 07:13] MED LIST changes: +BACITRACIN 50,000 UNIT in IV NORMAL SALINE 1000ML BAG 1,000 ML IRR ONE
[2019-11-27] MEDS ORDERED: KETOROLAC 60 MG/2 ML VIAL. ONE (07:19)
[2019-11-27] MEDS ORDERED: BUPIVACAINE-EPI 0.5%-1:200000 MPF 30 ML VIAL. ONE (07:19)
[2019-11-27] MEDS ORDERED: GELATIN SPONGE SIZE 100. ONE (07:19)
[2019-11-27] MEDS ORDERED: THROMBIN TOPICAL 20,000 UNIT SPRAY.SYRN KIT TP ONE ×2 (07:19→10:38)
[2019-11-27] MEDS ORDERED: PROPOFOL 200 ML IV ONE (07:25)
[2019-11-27] MEDS ORDERED: PHENYLEPHRINE 10 MG/ML VIAL. ONE ×2 (07:29→07:30)
[2019-11-27] MEDS ORDERED: FAMOTIDINE 20 MG/2 ML VIAL ONE (07:31)
[2019-11-27] MEDS ORDERED: MIDAZOLAM HCL/PF 2 MG/2 ML VIAL. ONE (07:31)
[2019-11-27] MEDS ORDERED: ROCURONIUM 50 MG/5 ML VIAL. ONE (07:33)
[2019-11-27] MEDS ORDERED: REMIFENTANIL 2 MG VIAL. IV ONE (07:33)
[2019-11-27] MEDS ORDERED: PROPOFOL 20 ML IV ONE (07:39)
[2019-11-27] MEDS ORDERED: LIDOCAINE 2% PF 5 ML VIAL. ONE (07:39)
[2019-11-27] MEDS ORDERED: DEXAMETHASONE SOD PHOS 4 MG/ML VIAL ONE (07:39)
[2019-11-27] MEDS ORDERED: ALBUTEROL SULFATE 2.5 MG/3 ML NEBU. CONT NEB ONE (08:00)
[2019-11-27] MEDS ORDERED: GELATIN SPONGE SIZE 100. TP ONE (10:38)
[2019-11-27] MEDS ORDERED: BUPIVACAINE-EPI 0.5%-1:200000 MPF 30 ML VIAL. INJ ONE (10:38)
[2019-11-27] MEDS ORDERED: KETOROLAC 60 MG/2 ML VIAL. INJ ONE (10:38)
[2019-11-27] MEDS ORDERED: DESFLURANE > 120 MINUTES IH ONE (12:17)
[2019-11-27] MEDS ORDERED: MAGNESIUM HYDROXIDE 2,400 MG/30 ML ORAL.SUSP. PO PRN (12:45)
[2019-11-27] MEDS ORDERED: ACETAMINOPHEN 325 MG TABLET. PO PRN (12:45)
[2019-11-27] MEDS ORDERED: HYDROcodone/APAP 5/325MG 1 TAB TABLET PO PRN (12:45)
[2019-11-27] MEDS ORDERED: ONDANSETRON PF 4 MG/2 ML VIAL. IVP PRN (12:45)
[2019-11-27] MEDS ORDERED: NALOXONE 0.4 MG/ML VIAL. IV PRN (12:45)
[2019-11-27] MEDS ORDERED: CYCLOBENZAPRINE 10 MG TABLET. PO PRN (12:45)
[2019-11-27] MEDS ORDERED: ALBUTEROL SULFATE 2.5 MG/3 ML NEBU. INH PRN (12:45)
[2019-11-27] MEDS ORDERED: diphenhydrAMINE HCL 25 MG CAPSULE PO PRN (12:45)
[2019-11-27] MEDS ORDERED: 0.9 % SODIUM CHLORIDE 10 ML DISP.SYRIN. IV PRN (12:45)
[2019-11-27] MEDS ORDERED: MAG HYDROX/ALUMINUM HYD/SIMETH 30 ML ORAL.SUSP PO PRN (12:45)
[2019-11-27] MEDS ORDERED: CALCIUM CARBONATE 500 MG TAB.CHEW PO PRN (12:45)
[2019-11-27] MEDS ORDERED: fentaNYL PF VIAL 100 MCG/2 ML VIAL IVP PRN (12:45)
--- NOTE | 2019-11-27 13:58 | OP ---
DATE OF SURGERY: 11/27/2019 PREOPERATIVE DIAGNOSES: Foraminal disc herniation L4-L5, right with severe right lumbar radiculopathy. POSTOPERATIVE DIAGNOSES: Foraminal disc herniation L4-L5, L4-L5, right with severe right lumbar radiculopathy. OPERATION PERFORMED: Transforaminal exposure with removal of foraminal disc herniation and decompression of the right L4 nerve root. Note, this is a level that has been operated before, but not transforaminally. The operation was done with EMG monitoring, SSEP monitoring, fluoroscopy, microscopic dissection. SURGEON: Palmer Razo M.D. OCCUPATIONAL PHYSICIAN: ABDELRAHMAN House, assisted with the surgery. She assisted with the exposure, the removal of disc, and closure. OPERATIVE INDICATIONS: A pleasant 64-year-old man who developed severe intractable right leg pain and weakness and had the above-mentioned findings. I felt the surgery was urgently necessary and we move forward. He understood the surgery and the risks. He wished to go ahead. DESCRIPTION OF PROCEDURE: Following general endotracheal anesthesia, the patient was positioned prone on the Yassine table. Lumbar region prepped and draped in standard fashion. JAYNE hose and AV impulse boots were applied for DVT prophylaxis. The microscope was draped. Fluoroscopy was draped and brought into field. Monitoring was established. Ancef 2 grams given less than 1 hour prior to initiation of surgery. Using fluoroscopic guidance, a midline incision was made. Incision was carried down through the skin and subcutaneous tissue. The paraspinal muscles were reflected and I exposed the scar of his previous surgery at L4-L5. I stripped the scar away and then drilled them to expose the L4 root and take off of L5 root in Kambin's triangle. I palpated and gently retracted the root superiorly with a nerve root retractor, incised the ligament and there was a very large disc herniation in this location. I gently teased it up and removed it as a single piece. There were few more small fragments and as I removed these, the root was very well decompressed. I irrigated copiously with antibiotic solution and closed the wound in layers with absorbable suture. The skin was closed with 4-0 subcuticular stitch. The surgery went very well. PALMER RAZO MD DR: BOB/hung JOB#: [id number] / [id number] NICK
[2019-11-27] MEDS: ALBUTEROL SULFATE 2.5 MG/3 ML NEBU. NEB SCH ×2 (16:00→20:57)
--- NOTE | 2019-11-27 16:00 | NUR ---
Have received patient to room 442. Patient alert and oriented, call light within easy reach. Pt does not wish to have room phone at this time (will be using own cell phone) Patient relates that back is already feeling better than prior to surgery. IVF infusing through access in right arm. IVF placed on pump. with patient at this time. Tray has been ordered for patient. No c/o n/v. Dressing mid lower back dry and intact without any shadowing noted. Pt oriented to room, unit.
[2019-11-27] MEDS: HYDROcodone/APAP 5/325MG 1 TAB TABLET PO PRN (16:44)
[2019-11-27] MEDS: GABAPENTIN 300 MG CAPSULE. PO SCH ×2 (16:44→22:51)
[2019-11-27] MEDS: POTASSIUM CL 20MEQ D5-0.45NACL 1,000 ML IV SCH (16:51)
[2019-11-27] MEDS: BUDESONIDE 0.5 MG/2 ML NEBU. NEB SCH (20:57)
[2019-11-27] MEDS ORDERED: MELOXICAM 7.5 MG TABLET PO SCH (21:00)
[2019-11-27] MEDS: DOCUSATE SODIUM 100 MG CAPSULE. PO SCH (21:00)
[2019-11-28 03:00] VITALS: BP 113/77
[2019-11-28] MEDS: POTASSIUM CL 20MEQ D5-0.45NACL 1,000 ML IV SCH (04:20)
[2019-11-28 07:00] VITALS: BP 137/87
[2019-11-28] MEDS: ALBUTEROL SULFATE 2.5 MG/3 ML NEBU. NEB SCH ×2 (08:49→12:07)
[2019-11-28] MEDS: BUDESONIDE 0.5 MG/2 ML NEBU. NEB SCH (08:49)
[2019-11-28] MEDS ORDERED: ALLOPURINOL 300 MG TABLET. PO SCH (09:00)
[2019-11-28] MEDS: DOCUSATE SODIUM 100 MG CAPSULE. PO SCH (09:53)
[2019-11-28] MEDS: GABAPENTIN 300 MG CAPSULE. PO SCH (09:53)
[2019-11-28] MEDS: HYDROcodone/APAP 5/325MG 1 TAB TABLET PO PRN (09:53)
[2019-11-28 11:00] VITALS: BP 121/68
[2019-11-28] MEDS ORDERED: HYDR-2761 PO (12:10)
[2019-11-28] MEDS ORDERED: DOCU-153 PO (12:10)
--- NOTE | 2019-11-28 12:12 | DISCH ---
DISCHARGE INSTRUCTIONS Condition on Discharge Condition on Discharge: Stable Activity After Discharge Activity Instructions for Disc: Activity as tolerated, Avoid exertion Other activity instructions: no driving for a week Bathing Instructions: Shower-keep dressing dry Lifting Instructions after Dis: No heavy lifting, No pulling or pushing, Do not lift >10 pounds Exercise Instruction after Dis: Progress as tolerated Driving Instructions after Dis: Do not drive today Weight Bearing Status after Di: No restrictions Diet after Discharge Diet after Discharge: Cardiac Additional Diet Restrictions: resume home diet Liquid Texture: Thin Liquid Swallowing Supervision: None needed Wound Incision Care Wound/Incision Care: Ice to area for comfort Other wound/incision instructi: may remove dressing in 48 hours if dry then may shower, no soaking Contacting the DRRamon after DC Call your doctor for: Concerns you may have Follow-Up Follow up with: Dr. Razo's nurse in 2 weeks [phone] Treatment/Equipment after DC Adaptive Equipment Issued: None ODELL RAZO MD Nov 28, 2019 12:12
--- NOTE | 2019-11-28 13:16 | NUR ---
Discharge Note: DEBBIE SHARIF [place] Discharge instructions and discharge home medications reviewed with Patient and a copy given. All questions have been answered and understanding verbalized. The following instructions and handouts were given: see D/C Discontinued lines and drains: Peripheral IV intact. Patient discharged to Home or Self Care with Spouse via Wheelchair walked out by LATANYA
--- NOTE | 2019-11-30 15:07 | PATHOLOGY ---
[facility] Accession Number: [id number] . 01 Material submitted: . vertebral column - LUMBAR DECOMPRESSION AND DISC . 01 Clinical history: . Lumbar herniated disc with radiculopathy. . 02 Diagnosis: Segments of fibrocartilaginous, fibroadipose, and skeletal muscle tissue and bone, lumbar disc and decompression: - Degenerative changes of fibrocartilaginous tissue. . ([facility]:mm; 11/30/2019) [facility] 11/30/2019 1240 Local . 02 Comment: There is no evidence of an acute inflammatory process or malignancy. . ([facility]:mml; 11/30/2019) . 02 Electronically signed: . Mundo Lee MD, Pathologist NPI- [id number] . 01 Gross description: . Received in formalin labeled "Alton Mcclain, lumbar decompression and disc" is a 4.6 x 2.7 x 1.3 cm aggregate of shah-white rubbery and gritty tissue fragments with possible minute segments of bone. Melt Supervisor tissue is submitted in cassette A1. ([facility]; 11/29/2019) [facility] 11/30/2019 1213 Local . 02 Pathologist provided ICD-10: M51.36 . 02 CPT . 510144 Specimen Comment: A courtesy copy of this report has been sent to [phone], [phone] Specimen Comment: [id number] Specimen Comment: Report sent to / DR FORTE Performed at: 01 [facility] [address], [place], [place] [id number] MD Emmanuel Warren MD Phone: [phone] Performed at: 02 [facility] [address], [place] [id number] MD Mundo Lee MD Phone: [phone]
== END 2019-11-28 13:20 | disposition home or self-care (01) ==
LOC: SURG 07:13 → 4 NORTH 14:45
PROVIDERS: ADMIT Neurological Surgery; ATTEND Neurological Surgery
DX: M51.16 Intervertebral disc disorders with radiculopathy, lumbar region (principal); I10 Essential (primary) hypertension; M10.9 Gout, unspecified; J44.9 Chronic obstructive pulmonary disease, unspecified; Z86.711 Personal history of pulmonary embolism; Z85.118 Personal history of other malignant neoplasm of bronchus and lung; Z79.01 Long term (current) use of anticoagulants; Z98.890 Other specified postprocedural states
CPT/HCPCS: 63030; 76000; 88304; 94640; 97116; 97162; 97530; A7015; G0378; G0379; J0696; J1100; J1885; J2250; J2370; J2704; J3480; J3490; J7030; J7120; J7613; J7626

== ENCOUNTER → 2020-04-11 | Outpatient (CLI) | payer OTHER, MEDICARE ==
[~2020-04-11] MED LIST changes: -BACITRACIN 50,000 UNIT in IV NORMAL SALINE 1000ML BAG 1,000 ML IRR ONE; +DOCU-153 PO
[2020-04-11 11:18] LABS: BASO % 1 % (0-3); EOS # 0.2 x10^3/uL (0.0-0.7); EOS % 4 % (0-3); HEMATOCRIT 45.6 % (39.0-53.0); LYMPH % 17 % (24-48); MEAN CORPUSCULAR HEMOGLOBIN 27 pg (25-35); MEAN CORPUSCULAR HGB CONC 33 g/dL (31-37); MEAN CORPUSCULAR VOLUME 83 fL (79-100); MONO # 0.6 x10^3/uL (0.0-1.1); MONO % 10 % (0-9); NEUT # 4.2 x10^3/uL (1.8-7.7); NEUT % 69 % (31-73); PLATELET COUNT 192 x10^3/uL (140-400); RED BLOOD COUNT 5.53 x10^6/uL (4.30-5.70)
[2020-04-11 11:29] LABS: CREATININE 1.2 mg/dL (0.7-1.3)
[2020-04-11 11:35] LABS: ALBUMIN 3.7 g/dL (3.4-5.0); TOTAL BILIRUBIN 0.5 mg/dL (0.2-1.0); TOTAL PROTEIN 7.4 g/dL (6.4-8.2)
== END | disposition home or self-care (01) ==
LOC: ONCLAB 11:06
PROVIDERS: ATTEND Internal Medicine Hematology & Oncology
DX: C34.12 Malignant neoplasm of upper lobe, left bronchus or lung (principal)
CPT/HCPCS: 36415; 80053; 84443; 85025

== ENCOUNTER → 2020-05-02 | Outpatient (CLI) | payer OTHER, MEDICARE ==
[~2020-05-02] MED LIST changes: +IOHEXOL 300 MG/ML 100ML VIAL. IV ONE
--- NOTE | 2020-05-02 16:15 | RAD ---
CT chest with contrast: Reason for examination: Squamous cell lung cancer in the left upper lobe. Comparison is made to previous study dated 11/02/2019. Helical images were obtained through the chest with intravenous administration of 75 cc Omnipaque 300. Reconstruction was performed in sagittal and coronal planes. Exposure: One or more of the following individualized dose reduction techniques were utilized for this examination: 1. Automated exposure control 2. Adjustment of the mA and/or kV according to patient size 3. Use of iterative reconstruction technique. No abnormality seen at the thyroid gland. The trachea and mainstem bronchi show no intraluminal lesions. No abnormality seen at the esophagus. The thoracic aorta shows no aneurysmal dilatation or dissection. The heart size is normal with no pericardial effusion. There has been a left lobectomy and there is shift of the mediastinum to the left. Small amount of residual fluid is seen in the left hemithorax. The right lung field however shows presence of faint parenchymal densities in the right upper lobe medially on image 21 and laterally on image 22 which appear to be new since previous exam. These measure approximately 1.2 cm and 9.6 mm in greatest dimensions and small pulmonary metastases cannot be excluded. No other pulmonary nodules, infiltrates or pleural effusions are seen. No abnormalities are seen at the liver, spleen, gallbladder or pancreas. There does appear to be some nodular fullness in the right adrenal gland which is more prominent than on previous examination. Adrenal metastasis cannot be excluded and follow-up is recommended. There are old healed left rib fractures posteriorly but no acute bony abnormalities are evident. IMPRESSION: Status post left pneumonectomy with some mild residual fluid in the left hemithorax. Small parenchymal densities in the right upper lobe medially on image #21 and laterally on image 22 which are new since previous exam and may represent small foci of infiltrate but pulmonary metastases cannot not be excluded. Follow-up is recommended. Nodular fullness in the right adrenal gland which is more prominent than on previous exam and adrenal metastasis cannot be excluded. Electronically signed by: Loretta Worrell MD (05/02/2020 4:12 PM) [facility]
== END | disposition home or self-care (01) ==
LOC: CT 08:56
PROVIDERS: ATTEND Internal Medicine Hematology & Oncology
DX: C34.12 Malignant neoplasm of upper lobe, left bronchus or lung (principal)
CPT/HCPCS: 71260; Q9967

== ENCOUNTER 2020-06-13 13:43 | Emergency (ER) | payer OTHER, MEDICARE ==
[~2020-06-13] VITALS: Ht 182.9 cm; Wt 96.4 kg
[~2020-06-13 13:43] MED LIST changes: -IOHEXOL 300 MG/ML 100ML VIAL. IV ONE
[2020-06-13 13:59] VITALS: BP 183/95
[2020-06-13] MEDS ORDERED: CEPHALEXIN 250 MG CAPSULE. PO STA (14:29)
[2020-06-13] MEDS ORDERED: DIPH,PERTUSS(ACELL),TET VAC/PF 0.5 ML SYRINGE. VAX IM ONE (14:30)
[2020-06-13] MEDS ORDERED: BACITRACIN TOPICAL OINT PACKET. TP ONE (14:30)
--- NOTE | 2020-06-13 15:21 | RAD ---
Examination: HAND LEFT 3V History: Reason: DRILL BIT PENETRATION TO LEFT #2 MCP JOINT Comparison/Correlation: None Findings: 3 images of the left hand were obtained. Radiopaque 0.2 cm diameter density within the medial soft tissues of the left first digit proximally noted. Amputation of the first digit at the interphalangeal joint level noted. Partial amputation of the second through fifth digits at the proximal phalangeal level noted. These are chronic in appearance. Osteopenia noted. First carpometacarpal joint degenerative remodeling is present. Impression: Foreign body within the soft tissues of the first digit proximally. No radiopaque foreign body at the second metacarpophalangeal joint. Electronically signed by: Alin Esquivel MD (06/13/2020 3:18 PM) [facility]
[2020-06-13] MEDS ORDERED: CEPH500T PO (15:49)
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
== END 2020-06-13 15:55 | disposition home or self-care (01) ==
LOC: ER 13:43
DX: S60.512A Abrasion of left hand, initial encounter (principal); S61.231A Puncture wound without foreign body of left index finger without damage to nail, initial encounter; J44.9 Chronic obstructive pulmonary disease, unspecified; M10.9 Gout, unspecified; Z87.891 Personal history of nicotine dependence; Z88.5 Allergy status to narcotic agent; Z88.8 Allergy status to other drugs, medicaments and biological substances; Y28.8XXA Contact with other sharp object, undetermined intent, initial encounter; Y93.89 Activity, other specified; Y92.89 Other specified places as the place of occurrence of the external cause; Y99.8 Other external cause status
CPT/HCPCS: 73130; 90471; 90715; 99283

== ENCOUNTER → 2020-08-01 | Outpatient (CLI) | payer OTHER, MEDICARE ==
[~2020-08-01] MED LIST changes: +CEPH500T PO; +IOHEXOL 300 MG/ML 100ML VIAL. IV ONE
--- NOTE | 2020-08-01 09:22 | RAD ---
CT scan of the chest with contrast 08/01/2020 CLINICAL HISTORY: History of lung cancer. TECHNIQUE: After the intravenous administration of 75 cc of Omnipaque 300, contiguous, 5 mm axial sections were obtained through the chest and upper abdomen. FINDINGS: Comparison study is dated 05/02/2020. The patient is post left upper lobectomy. Atelectasis of the left lower lobe is seen. A small pleural effusion is again noted. These findings have not significantly changed. No residual/recurrent mass is seen. Shift of the heart and mediastinum to the left is again seen. The heart is normal in size. Atherosclerotic calcification of the thoracic aorta and its branches is noted. The thoracic aorta is mildly tortuous but tapers normally. A partially calcified subcarinal lymph node is unchanged. No hilar, mediastinal or axillary lymphadenopathy is seen. Small areas of subsegmental atelectasis and/or scarring are seen involving the medial anterior aspect of the right upper lobe and the posterior aspect of the right upper lobe. These are unchanged. A small area of subsegmental atelectasis is seen involving the lateral aspect of the right upper lobe. No area of consolidation is noted. No pneumothorax or pleural effusion is seen. Images through the upper abdomen demonstrate atherosclerotic calcification of the abdominal aorta. Degenerative changes are seen throughout the thoracic spine. IMPRESSION: Post left upper lobe lobectomy with left lower lobe atelectasis, unchanged. No significant acute abnormality is seen. Electronically signed by: Rickey Gray MD (08/01/2020 9:19 AM) [id number]
== END ==
LOC: CT 08:21
PROVIDERS: ATTEND Internal Medicine Hematology & Oncology
DX: C34.12 Malignant neoplasm of upper lobe, left bronchus or lung (principal); J98.11 Atelectasis; I70.0 Atherosclerosis of aorta; Q25.46 Tortuous aortic arch; Z90.2 Acquired absence of lung [part of]
CPT/HCPCS: 71260; Q9967

== ENCOUNTER → 2020-12-02 | Outpatient (CLI) | payer OTHER, MEDICARE ==
[~2020-12-02] MED LIST changes: -IOHEXOL 300 MG/ML 100ML VIAL. IV ONE
--- NOTE | 2020-12-02 14:33 | RAD ---
INDICATION: Reason: Personal History of Venous Thrombosis with Left Leg pain / Spl. Instructions: / History: COMPARISON: September 2018 TECHNIQUE: Grayscale, color and doppler ultrasound images were obtained of the left lower extremity v enous vasculature. LEFT: No thrombus identified in the common femoral vein, femoral vein, or visualized calf veins. Linear eileen ling defect at popliteal vein. IMPRESSION: * Linear filling defect in the left popliteal vein which could be from a region of scarring or booth manager sera thrombus that has been partially recannulized. Electronically signed by: Toney Malagon MD (12/02/2020 2:30 PM) [id number]
--- NOTE | 2020-12-02 16:27 | RAD ---
US LEFT LOWER EXTREMITY ARTERIAL DUPLEX EVAL Indication: Reason: Left leg Pain mostly behind Left Knee / Spl. Instructions: / History: Comparison: None. Procedure: Real-time grayscale, color flow Doppler, and Doppler spectral waveform analysis of the art erial system of the lower extremity is performed. Findings: Biphasic or triphasic waveforms throughout the left lower extremity. Mild atheromatous plaque. No sig nificant velocity elevation. No occlusion. IMPRESSION: 1. No hemodynamically significant arterial stenosis. Electronically signed by: Osiel Purcell DO (12/02/2020 4:25 PM) [id number]
== END ==
LOC: US 12:46
PROVIDERS: ATTEND Family Medicine
DX: M79.605 Pain in left leg (principal); Z86.718 Personal history of other venous thrombosis and embolism
CPT/HCPCS: 93926; 93971

== ENCOUNTER → 2021-01-19 | Outpatient (CLI) | payer OTHER, MEDICARE ==
[~2021-01-19] MED LIST changes: +CONTRAST GIVEN. MC PRN
[2021-01-19 07:53] LABS: CREATININE 1.3 mg/dL (0.7-1.3); GFR 55.4
[2021-01-19] MEDS: IOHEXOL 300 MG/ML 100ML VIAL. IV ONE (08:29)
--- NOTE | 2021-01-19 09:55 | RAD ---
PQRS Compliance Statement: One or more of the following individualized dose reduction techniques were utilized for this examinat ion: 1. Automated exposure control 2. Adjustment of the mA and/or kV according to patient size 3. Use of iterative reconstruction technique CT THORAX W 01/19/2021 8:00 AM Indication: Squamous cell lung cancer COMPARISON: None available. TECHNIQUE: Multiple axial CT images of the chest were obtained after intravenous administration of 60 cc Omnipaque 300. Coronal and sagittal reformats are provided. FINDINGS: Thyroid gland is normal in appearance. Heart size is within normal limits. There is deviation of the mediastinum to the left. Surgical clips are identified in the left hilar region. No pathologically en larged lymph nodes are identified in the mediastinum or hilum. Calcified mediastinal, subcarinal lymp h nodes are identified. Adrenal glands are normal in appearance. Visualized portions of the upper abd omen appear normal. Thoracotomy changes are identified on the left. No suspicious osseous abnormality is noted. Post surgical changes from left upper lobectomy are noted with chronic consolidative change involving the left lower lobe which may reflect lobar atelectasis. Small left pleural effusion. There is compe nsatory expansion of the right lung. There is subpleural interstitial opacity identified along the la teral right upper lobe which is unchanged since prior examination and may represent atelectasis or sc arring. 3 mm solid noncalcified pulmonary nodule identified along the minor fissure (series 2, image 28), stable. No new or enlarging solid noncalcified pulmonary nodule. No pulmonary vascular congestio n or pneumothorax. IMPRESSION: Post surgical changes are identified from left upper lobectomy with chronic atelectasis of the left l ower lobe and significant mediastinal deviation to the left with compensatory hyperexpansion of the r ight lung. No new or enlarging solid noncalcified pulmonary nodules. No evidence for disease progress ion. No new or enlarging thoracic lymphadenopathy. Electronically signed by: Kate Urena MD (01/19/2021 9:52 AM) [id number]
== END ==
LOC: CT 08:33
PROVIDERS: ATTEND Internal Medicine Hematology & Oncology
DX: C34.12 Malignant neoplasm of upper lobe, left bronchus or lung (principal)
CPT/HCPCS: 36415; 71260; 82565; 84520; Q9967

== ENCOUNTER 2021-02-03 08:48 | Day surgery (SDC) | payer OTHER, MEDICARE ==
[~2021-02-03] VITALS: Ht 180.3 cm; Wt 95.4 kg
[~2021-02-03 08:48] MED LIST changes: +CHOL4POW2 PO; +CIPROFLOXACIN 0.3% OPHTH SOLUTION 5ML BOTTLE. OS ONE; -CONTRAST GIVEN. MC PRN; +IV RINGERS,LACTATED 1000ML 1,000 ML IV SCH; +LIDOCAINE 2% JELLY 6ML IN APPLICATOR. OS ONE; +PROPARACAINE 0.5% OPHTH SOLUTION 15ML BOTTLE. OS ONE
[2021-02-03 09:22] VITALS: BP 109/69
[2021-02-03] MEDS: PHENYLEPHRINE 10% OPHTH SOLUTION 5ML BOTTLE. OS SCH ×3 (09:34→09:45)
[2021-02-03] MEDS: CYCLOPENTOLATE 1% OPHTH SOLUTION 2ML BOTTLE. OS SCH ×3 (09:34→09:45)
[2021-02-03] MEDS ORDERED: NEO/POLYMYX/DEXAMETH OPHTH OINTMENT 3.5GM TUBE. ONE (09:59)
[2021-02-03] MEDS ORDERED: CHONDROIT-SOD-HYALURONATE KIT. ONE (09:59)
[2021-02-03] MEDS ORDERED: LIDOCAINE 1%/PHENYLEPH 1.5% PF OPHTH 1 ML VIAL. ONE (09:59)
[2021-02-03] MEDS ORDERED: CHONDROITIN-SOD-HYALURONATE 0.5 ML DISP.SYRIN. ONE (09:59)
[2021-02-03] MEDS ORDERED: acetaZOLAMIDE 250 MG TABLET. PO ONE (11:15)
[2021-02-03] MEDS ORDERED: BALANCED SALT IRRIG OPHTH SOLN 15 ML BOTTLE. ONE (11:24)
--- NOTE | 2021-02-03 12:04 | OP ---
DATE OF SURGERY: 02/03/2021 DIAGNOSES: 1. Open-angle glaucoma of the left eye. 2. Cataract of the left eye. PROCEDURES: 1. Goniotomy with [place] dual blade of the left eye. 2. Cataract extraction with posterior chamber intraocular lens implantation of the left eye. INDICATIONS: Painless progressive visual loss and visually significant cataract and early mild open angle glaucoma with a narrow angle component as well. DESCRIPTION OF PROCEDURE: Left eye was prepped with Betadine in the usual sterile fashion and draped. A paracentesis was performed followed by instillation of preservative-free phenylephrine admixed with balanced salt solution and lidocaine. A temporal clear corneal incision was made followed by instillation of Viscoat. The head and microscope were repositioned to visualize the anterior chamber angle. The [place] dual blade was used to excise a portion of the nasal trabecular meshwork. During the removal of the blade, the patient did have a movement of his eye, which resulted in a small Descemet's detachment in the superior nasal area. The head and microscope were repositioned and the Descemet's detachment repositioned with copious Viscoat. A capsulorrhexis was then performed, followed by hydrodissection. The phacoemulsification handpiece was used to remove the nucleus in a modified stop and chop fashion, taking care to avoid the superior nasal cornea. The I/A handpiece was used to remove the cortex and viscoelastic was placed into the capsular bag, and an Jt model [id number] with a power of 27.0 diopters was placed into the capsular bag. Balanced salt solution was used to hydrate the corneal wounds and the viscoelastic with the exception of the Viscoat tamponading the Descemet's detachment was evacuated. Once no leak was noted, Maxitrol was placed on the eye and the eye shielded and the patient was sent to the recovery room uneventfully. HANSEL DR: Jennifer TID: [id number]
[2021-02-03 12:10] VITALS: BP 128/88
== END 2021-02-03 12:10 | disposition home or self-care (01) ==
LOC: SURG 08:48
PROVIDERS: ATTEND Ophthalmology
DX: H25.89 Other age-related cataract (principal); H40.10X0 Unspecified open-angle glaucoma, stage unspecified; I10 Essential (primary) hypertension; J44.9 Chronic obstructive pulmonary disease, unspecified; E66.9 Obesity, unspecified; M19.90 Unspecified osteoarthritis, unspecified site; M10.9 Gout, unspecified; Z87.891 Personal history of nicotine dependence; Z72.89 Other problems related to lifestyle; Z98.890 Other specified postprocedural states; Z88.8 Allergy status to other drugs, medicaments and biological substances
CPT/HCPCS: 65820; 66984; J0171; J0690; J1580; J3490; V2632

== ENCOUNTER 2021-02-10 09:57 | Day surgery (SDC) | payer OTHER, MEDICARE ==
[~2021-02-10] VITALS: Ht 180.3 cm; Wt 95.4 kg
[~2021-02-10 09:57] MED LIST changes: +BALANCED SALT IRRIG OPHTH SOLN 15 ML BOTTLE. ONE; +CHONDROIT-SOD-HYALURONATE KIT. ONE; +CHONDROITIN-SOD-HYALURONATE 0.5 ML DISP.SYRIN. ONE; +CIPROFLOXACIN 0.3% OPHTH SOLUTION 5ML BOTTLE. OD ONE; -CIPROFLOXACIN 0.3% OPHTH SOLUTION 5ML BOTTLE. OS ONE; +LIDOCAINE 2% JELLY 6ML IN APPLICATOR. OD ONE; +LIDOCAINE 2% JELLY 6ML IN APPLICATOR. ONE; -LIDOCAINE 2% JELLY 6ML IN APPLICATOR. OS ONE; +NEO/POLYMYX/DEXAMETH OPHTH OINTMENT 3.5GM TUBE. ONE; +PROCHLORPERAZINE 10 MG/2 ML VIAL. IVP PRN; +PROPARACAINE 0.5% OPHTH SOLUTION 15ML BOTTLE. OD ONE; -PROPARACAINE 0.5% OPHTH SOLUTION 15ML BOTTLE. OS ONE; +TRYPAN BLUE 0.06% INTRAOCULAR 0.5 ML SYRINGE. ONE; +fentaNYL PF VIAL 100 MCG/2 ML VIAL IVP PRN
[2021-02-10] MEDS: PHENYLEPHRINE 10% OPHTH SOLUTION 5ML BOTTLE. OD SCH ×3 (10:37→10:50)
[2021-02-10] MEDS: CYCLOPENTOLATE 1% OPHTH SOLUTION 2ML BOTTLE. OD SCH ×3 (10:37→10:50)
[2021-02-10] MEDS ORDERED: LIDOCAINE 1% PF 2 ML VIAL. ONE (11:48)
[2021-02-10] MEDS ORDERED: LIDOCAINE 1%/PHENYLEPH 1.5% PF OPHTH 1 ML VIAL. ONE (12:22)
[2021-02-10] MEDS ORDERED: acetaZOLAMIDE 250 MG TABLET. PO ONE (12:30)
[2021-02-10 13:15] VITALS: BP 145/81
--- NOTE | 2021-02-10 13:33 | OP ---
DATE OF SURGERY: 02/10/2021 PREOPERATIVE DIAGNOSES: 1. Open-angle glaucoma of the right eye. 2. Cataract of the right eye. PROCEDURES: 1. [place] dual blade goniotomy of the right eye. 2. Cataract extraction with posterior chamber intraocular lens implantation of the right eye. ANESTHESIA: Topical with monitored anesthesia care. DESCRIPTION OF PROCEDURE: The right eye was prepped with Betadine in the usual sterile fashion and draped. A paracentesis was made followed by instillation of preservative-free phenylephrine admixed with lidocaine and balanced salt solution. A temporal clear corneal incision was made followed by instillation of Viscoat. The head and microscope were then repositioned to visualize the anterior chamber angle and the [place] dual blade was used to excise the nasal portion of the trabecular meshwork. The head and microscope were repositioned and Viscoat further applied and a capsulorrhexis was performed, followed by hydrodissection. The phacoemulsification handpiece was used to remove the nucleus followed by the cortex removal with the IA handpiece. Viscoelastic was placed in the capsular bag and the Jt model [id number] with a power of 26.5 diopters was placed into the capsular bag. Balanced salt solution was used to hydrate the corneal wounds and the viscoelastic evacuated with the IA handpiece. Once no leak was noted, Maxitrol was placed on the eye and the eye shielded and the patient was sent to the recovery room uneventfully. NICOLE MORRIS: Jennifer TID: [id number]
== END 2021-02-10 13:35 | disposition home or self-care (01) ==
LOC: SURG 09:57
PROVIDERS: ATTEND Ophthalmology
DX: H25.89 Other age-related cataract (principal); H40.10X0 Unspecified open-angle glaucoma, stage unspecified; I10 Essential (primary) hypertension; J44.9 Chronic obstructive pulmonary disease, unspecified; M19.90 Unspecified osteoarthritis, unspecified site; E66.9 Obesity, unspecified; M10.9 Gout, unspecified; Z85.828 Personal history of other malignant neoplasm of skin; Z87.891 Personal history of nicotine dependence; Z79.899 Other long term (current) drug therapy; Z98.890 Other specified postprocedural states; Z72.89 Other problems related to lifestyle; Z88.8 Allergy status to other drugs, medicaments and biological substances
CPT/HCPCS: 65820; 66984; J0171; J0690; J1580; J3490; V2632

== ENCOUNTER 2021-07-25 18:54 | Emergency (ER) | payer OTHER, MEDICARE ==
[~2021-07-25] VITALS: Ht 182.9 cm; Wt 90.9 kg
[~2021-07-25 18:54] MED LIST changes: -BALANCED SALT IRRIG OPHTH SOLN 15 ML BOTTLE. ONE; -CHONDROIT-SOD-HYALURONATE KIT. ONE; -CHONDROITIN-SOD-HYALURONATE 0.5 ML DISP.SYRIN. ONE; -CIPROFLOXACIN 0.3% OPHTH SOLUTION 5ML BOTTLE. OD ONE; +CYCL10TA19 PO; -CYCL10TA2 PO; +DOCU-148 PO; -DOCU-153 PO; -DOXY100C2 PO; +DOXY100C3 PO; -IV RINGERS,LACTATED 1000ML 1,000 ML IV SCH; -LIDOCAINE 2% JELLY 6ML IN APPLICATOR. OD ONE; -LIDOCAINE 2% JELLY 6ML IN APPLICATOR. ONE; -NEO/POLYMYX/DEXAMETH OPHTH OINTMENT 3.5GM TUBE. ONE; -PROCHLORPERAZINE 10 MG/2 ML VIAL. IVP PRN; -PROPARACAINE 0.5% OPHTH SOLUTION 15ML BOTTLE. OD ONE; -TRYPAN BLUE 0.06% INTRAOCULAR 0.5 ML SYRINGE. ONE; -fentaNYL PF VIAL 100 MCG/2 ML VIAL IVP PRN
[2021-07-25 19:15] VITALS: BP 161/87
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
[2021-07-25] MEDS ORDERED: BACITRACIN TOPICAL OINT PACKET. TP ONE (20:15)
[2021-07-25] MEDS ORDERED: HYDROcodone/APAP 5/325MG 1 TAB TABLET PO ONE (20:15)
--- NOTE | 2021-07-25 20:34 | RAD ---
Exam: Right wrist 3 views. Right hand 3 views INDICATION: Fall with right wrist and hand pain TECHNIQUE: Frontal, lateral and oblique views of the right wrist and right hand Comparisons: None FINDINGS: Wrist: Bone mineralization is normal. No acute or healed fractures. Soft tissues are unremarkable. Joint spa joe are well-maintained. Hand: Bone mineralization is normal. No acute or healed fractures. There is mild degenerative change at the first CMC joint. Soft tissues are unremarkable. IMPRESSION: 1. No acute osseous abnormality identified at the wrist. If the patient is exhibiting snuffbox tende rness, recommend splinting with repeat imaging in 5-7 days to rule out an occult scaphoid injury. 2. No acute osseous abnormality at the right hand. Electronically signed by: Nitin Denny MD (07/25/2021 8:31 PM) KELL
[2021-07-25] MEDS ORDERED: HYDR-2761 PO (20:52)
== END 2021-07-25 21:30 | disposition home or self-care (01) ==
LOC: ER 18:54
DX: S62.346A Nondisplaced fracture of base of fifth metacarpal bone, right hand, initial encounter for closed fracture (principal); S00.81XA Abrasion of other part of head, initial encounter; S60.512A Abrasion of left hand, initial encounter; J44.9 Chronic obstructive pulmonary disease, unspecified; M10.9 Gout, unspecified; Z87.891 Personal history of nicotine dependence; W10.1XXA Fall (on)(from) sidewalk curb, initial encounter; Y93.89 Activity, other specified; Y92.89 Other specified places as the place of occurrence of the external cause; Y99.8 Other external cause status
CPT/HCPCS: 29125; 73110; 73130; 99284; A4565

== ENCOUNTER → 2021-08-01 | Outpatient (CLI) | payer OTHER, MEDICARE ==
[2021-07-25 19:15] VITALS: BP 161/87
[~2021-08-01] MED LIST changes: +CONTRAST GIVEN. MC PRN; +IOHEXOL 300 MG/ML 100ML VIAL. IV ONE
[2021-08-01 08:51] LABS: BASO # 0.1 x10^3/uL (0.0-0.2); BASO % 1 % (0-3); EOS # 0.2 x10^3/uL (0.0-0.7); EOS % 3 % (0-3); HEMATOCRIT 48.3 % (39.0-53.0); HEMOGLOBIN 15.7 g/dL (13.0-17.5); LYMPH # 1.5 x10^3/uL (1.0-4.8); LYMPH % 19 % (24-48); MEAN CORPUSCULAR HEMOGLOBIN 27 pg (25-35); MEAN CORPUSCULAR HGB CONC 33 g/dL (31-37); MEAN CORPUSCULAR VOLUME 83 fL (79-100); MONO # 0.7 x10^3/uL (0.0-1.1); MONO % 9 % (0-9); NEUT # 5.2 x10^3/uL (1.8-7.7); NEUT % 68 % (31-73); PLATELET COUNT 241 x10^3/uL (140-400); RED BLOOD COUNT 5.79 x10^6/uL (4.30-5.70); RED CELL DISTRIBUTION WIDTH 14.9 % (11.5-14.5); WHITE BLOOD COUNT 7.7 x10^3/uL (4.0-11.0)
[2021-08-01 09:07] LABS: ALBUMIN/GLOBULIN RATIO 1.1 (1.0-1.7); CALCIUM 9.1 mg/dL (8.5-10.1); CREATININE 1.3 mg/dL (0.7-1.3); GFR 55.4; POTASSIUM 4.8 mmol/L (3.5-5.1); TOTAL BILIRUBIN 0.4 mg/dL (0.2-1.0); TOTAL PROTEIN 7.6 g/dL (6.4-8.2)
--- NOTE | 2021-08-01 10:35 | RAD ---
CT of the chest with contrast Indication: [History of lung cancer] Comparison study: [CT chest with contrast January 19, 2021] Technique: Multidetector CT imaging of the chest was performed following the administration of intrav enous contrast. Findings: Postoperative and post therapeutic changes in the left thorax are similar. Residual left lung is comp letely atelectatic, but unchanged from comparison exam. Heart size is normal. No significant pericar dial effusion is identified. No pathologically enlarged mediastinal adenopathy is identified. The ri ght lung is clear without evidence of focal infiltrate, pneumothorax, effusion, or mass. Limited visu alization of the upper abdomen is unremarkable. No acute osseous changes are identified. IMPRESSION: Stable CT appearance of the chest. No evidence of disease recurrence or metastasis is almaz ntified. CT DOSING PQRS STATEMENT: One or more of the following individualized dose reduction techniques were utilized for this examinat ion: 1. Automated exposure control 2. Adjustment of the mA and/or kV according to patient size 3. Use of iterative reconstruction technique Electronically signed by: Matthew Ferguson MD (08/01/2021 10:33 AM) [id number]
== END ==
LOC: CT 08:39
PROVIDERS: ATTEND Internal Medicine Hematology & Oncology
DX: C34.12 Malignant neoplasm of upper lobe, left bronchus or lung (principal); J98.11 Atelectasis; I26.99 Other pulmonary embolism without acute cor pulmonale; F17.201 Nicotine dependence, unspecified, in remission
CPT/HCPCS: 36415; 71260; 80053; 85025; Q9967

== ENCOUNTER → 2021-08-29 | Outpatient (CLI) | payer OTHER, MEDICARE ==
[~2021-08-29] MED LIST changes: -CONTRAST GIVEN. MC PRN; -IOHEXOL 300 MG/ML 100ML VIAL. IV ONE
== END ==
LOC: PF 09:25
PROVIDERS: ATTEND Internal Medicine Critical Care Medicine
DX: J44.9 Chronic obstructive pulmonary disease, unspecified (principal); R06.02 Shortness of breath
CPT/HCPCS: 94010; 94729

== ENCOUNTER 2021-09-11 09:17 | Inpatient (IN) | payer OTHER, MEDICARE ==
[~2021-09-11] VITALS: Ht 182.9 cm; Wt 98.1 kg
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
[2021-09-11 10:08] LABS: BASO % 1 % (0-3); CALCIUM 8.7 mg/dL (8.5-10.1); CREATININE 1.3 mg/dL (0.7-1.3); EOS # 0.1 x10^3/uL (0.0-0.7); EOS % 2 % (0-3); GFR 55.2; HEMATOCRIT 43.2 % (39.0-53.0); LYMPH # 1.2 x10^3/uL (1.0-4.8); LYMPH % 17 % (24-48); MEAN CORPUSCULAR HEMOGLOBIN 27 pg (25-35); MEAN CORPUSCULAR HGB CONC 32 g/dL (31-37); MEAN CORPUSCULAR VOLUME 83 fL (79-100); MONO # 0.5 x10^3/uL (0.0-1.1); MONO % 8 % (0-9); NEUT # 5.1 x10^3/uL (1.8-7.7); NEUT % 73 % (31-73); PLATELET COUNT 215 x10^3/uL (140-400); POTASSIUM 4.8 mmol/L (3.5-5.1); RED CELL DISTRIBUTION WIDTH 14.8 % (11.5-14.5)
--- NOTE | 2021-09-11 10:08 | RAD ---
XR CHEST 1V CLINICAL INDICATIONS: Tachycardia. Shortness of breath. History of lung cancer and total pneumonectom y on the left side. COMPARISON: Chest CT dated August 01, 2021. Findings: There is complete opacification of the left hemithorax with volume loss due to total pneumo nectomy. This was seen on the previous CT study. No acute lung infiltrate or lung mass or pleural eff usion or pneumothorax is seen on the right side. The right mediastinal border and right heart border are unchanged from the previous study. Old healed left rib cage fractures are apparent. IMPRESSION: No new abnormality. Electronically signed by: Andi Landers MD (09/11/2021 10:06 AM) [id number]
[2021-09-11 10:15] LABS: ALBUMIN 3.4 g/dL (3.4-5.0); ALBUMIN/GLOBULIN RATIO 0.8 (1.0-1.7); TOTAL BILIRUBIN 0.2 mg/dL (0.2-1.0); TOTAL PROTEIN 7.5 g/dL (6.4-8.2)
[2021-09-11] MEDS ORDERED: IOHEXOL 350 MG/ML 100 ML VIAL. IV ONE (10:30)
[2021-09-11] MEDS ORDERED: CONTRAST GIVEN. MC PRN (10:45)
[2021-09-11 11:13] LABS: PROTHROMBIN TIME PATIENT 14.9 SEC (11.7-14.0)
[2021-09-11 11:21] LABS: INFLUENZA A PATIENT NEGATIVE (NEGATIVE); INFLUENZA B PATIENT NEGATIVE (NEGATIVE)
[2021-09-11 11:30] LABS: D-DIMER 0.41 ug/mlFEU (0.00-0.50)
[2021-09-11] MEDS ORDERED: IV NORMAL SALINE 500ML BAG 500 ML IV ONE (11:45)
[2021-09-11] MEDS ORDERED: METOPROLOL IV PUSH 5 MG/5 ML VIAL. IVP ONE ×3 (11:45→16:45)
--- NOTE | 2021-09-11 11:49 | RAD ---
CTA CHEST History: Shortness of breath, tachycardia. Rule out PE. Comparison: CT chest 08/01/2021 Technique: CTA of the pulmonary arteries with intravenous contrast. 3-D postprocessing was performed. Findings: Pulmonary arteries: No pulmonary embolism. Aorta and great vessels: No aneurysm or dissection of the aortic arch or thoracic aorta. Thyroid: No significant abnormalities. Mediastinum and ailyn: Calcified subcarinal lymph nodes. Postsurgical changes of the left hilum with l eftward mediastinal shift. Esophagus: The visualized esophagus is normal. Heart: Trace pericardial fluid. Normal heart size. Airways, Lungs, Pleura: Partial left pneumonectomy with complete atelectasis of the residual left low er lobe. Findings unchanged from comparison. Trace left pleural fluid. No consolidation in the right lung. Mild right bronchial wall thickening. Upper abdomen: Limited evaluation of the upper abdomen is unremarkable. Osseous structures and soft tissues: Healed left rib fractures. No acute or suspicious osseous lesion . Impression: 1. No pulmonary embolism, aortic aneurysm or aortic dissection. 2. Redemonstrated postsurgical/treatment changes of the left lung with complete atelectasis of the r esidual left lower lung, unchanged. No acute consolidation in the right lung. ------ Exposure: One or more of the following individualized dose reduction techniques were utilized for thi s examination: 1. Automated exposure control 2. Adjustment of the mA and/or kV according to patient size 3. Use of iterative reconstruction technique. Electronically signed by: Wisam Garcia MD (09/11/2021 11:46 AM) [facility]
[2021-09-11 12:05] LABS: BILIRUBIN,URINE NEGATIVE (NEG); CLARITY,URINE CLEAR; COLOR,URINE YELLOW; NITRITE,URINE NEGATIVE (NEG); PH,URINE 5.5 (<5.0-8.0); PROTEIN,URINE NEGATIVE (NEG-TRACE); UROBILINOGEN,URINE 0.2 mg/dL (0.2 mg/dL)
[2021-09-11 12:19] LABS: BACTERIA,URINE 0 /HPF (0-FEW); RBC,URINE 0 /HPF (0-2); WBC,URINE 0 /HPF (0-4)
--- NOTE | 2021-09-11 12:52 | PDOC2 ---
FAINA EDWARDS PATROL CONDUCTOR 09/11/21 1252: CARDIAC CONSULT DATE OF CONSULT Date of Consult DATE: 09/11/21 TIME: 12:46 REASON FOR CONSULT Reason for Consult: tachycardia REFERRING PHYSICIAN Referring Physician: RIAN Orantes SOURCE Source: Chart review, Patient HISTORY OF PRESENT ILLNESS HISTORY OF PRESENT ILLNESS This is a 66 yo male who presented secondary to palpitations. Patient was initially seen by PCP, Dr. Adams today due to tachycardia. Initial plan was to be referred to melt supervisor on an outpatient basis. EKG was noted to be abnormal and patient was referred to the ED for further evaluation and treatment. Was noted in AFIB/flutter with RVR upon arrival. Received IV metoprolol for rate control. Patient denies any dizziness, diaphoresis, or chest pain. Reports mild SOA at baseline, no more than usual. Rate continues to be mildly elevated. PAST MEDICAL HISTORY Cardiovascular: HTN Pulmonary: COPD, Pulmonary embolus CENTRAL NERVOUS SYSTEM: CVA Heme/Onc: Cancer (lung ), Other (DVT) Musculoskeletal: Osteoarthritis Rheumatologic: Gout PAST SURGICAL HISTORY Past Surgical History: Hernia Repair, Other (left lower lobectomy, vasectomy, skin grafts secondary to pierce. back surgery ) FAMILY HISTORY Family History: Hypertension SOCIAL HISTORY Smoke: Quit ALCOHOL: social Drugs: None Lives: with Family CURRENT MEDICATIONS CURRENT MEDICATIONS Current Medications Medications (Trade) Dose Ordered Sig/Tadeo Route PRN Reason Start Time Stop Time Status Last Admin Dose Admin Iohexol (Omnipaque 350 Mg/ml) 75 ml 1X ONCE IV 09/11/21 10:30 09/11/21 10:35 DC 09/11/21 10:30 Sodium Chloride 500 ml @ 500 mls/hr 1X ONCE IV 09/11/21 11:45 09/11/21 12:44 DC 09/11/21 11:50 Metoprolol Tartrate (Lopressor Vial) 5 mg 1X ONCE IVP 09/11/21 11:45 09/11/21 11:46 DC 09/11/21 11:50 Metoprolol Tartrate (Lopressor Vial) 5 mg 1X ONCE IVP 09/11/21 12:15 09/11/21 12:16 DC 09/11/21 12:35 ALLERGIES ALLERGIES: Coded Allergies: adhesive tape (Verified Allergy, Intermediate, 11/10/19) oxycodone (Verified Allergy, Intermediate, sweating and itching, 11/10/19) paroxetine (Verified Adverse Reaction, Intermediate, diarrhea, 11/10/19) ROS Review of System 14 point ROS conducted with pertinent positives noted above in hPI PHYSICAL EXAM General: Alert, Oriented X3, Cooperative, No acute distress HEENT: Atraumatic Lungs: Other (fine expiratory wheezes) Heart: Other (AFIB/flutter- rate near 110) Abdomen: Soft Extremities: No edema Neuro: Normal speech, Sensation intact Psych/Mental Status: Mental status NL, Mood NL MUSCULOSKELETAL: Osteoarthritic changes both hands VITALS/I&O VITALS/I&O: Vital Signs Date Time Temp Pulse Resp B/P (MAP) Pulse Ox O2 Delivery O2 Flow Rate FiO2 09/11/21 12:35 119 128/76 09/11/21 09:20 98.1 25 98 Room Air 98.1 LABS Lab: Laboratory Tests Test 09/11/21 09:35 09/11/21 10:45 09/11/21 10:50 09/11/21 12:00 White Blood Count 7.0 x10^3/uL (4.0-11.0) Red Blood Count 5.20 x10^6/uL (4.30-5.70) Hemoglobin 14.0 g/dL (13.0-17.5) Hematocrit 43.2 % (39.0-53.0) Mean Corpuscular Volume 83 fL (79-100) Mean Corpuscular Hemoglobin 27 pg (25-35) Mean Corpuscular Hemoglobin Concent 32 g/dL (31-37) Red Cell Distribution Width 14.8 % (11.5-14.5) H Platelet Count 215 x10^3/uL (140-400) Neutrophils (%) (Auto) 73 % (31-73) Lymphocytes (%) (Auto) 17 % (24-48) L Monocytes (%) (Auto) 8 % (0-9) Eosinophils (%) (Auto) 2 % (0-3) Basophils (%) (Auto) 1 % (0-3) Neutrophils # (Auto) 5.1 x10^3/uL (1.8-7.7) Lymphocytes # (Auto) 1.2 x10^3/uL (1.0-4.8) Monocytes # (Auto) 0.5 x10^3/uL (0.0-1.1) Eosinophils # (Auto) 0.1 x10^3/uL (0.0-0.7) Basophils # (Auto) 0.0 x10^3/uL (0.0-0.2) Sodium Level 137 mmol/L (136-145) Potassium Level 4.8 mmol/L (3.5-5.1) Chloride Level 103 mmol/L (98-107) Carbon Dioxide Level 29 mmol/L (21-32) Anion Gap 5 (6-14) L Blood Urea Nitrogen 24 mg/dL (8-26) Creatinine 1.3 mg/dL (0.7-1.3) Estimated GFR (Cockcroft-Gault) 55.2 BUN/Creatinine Ratio 18 (6-20) Glucose Level 107 mg/dL (70-99) H Calcium Level 8.7 mg/dL (8.5-10.1) Total Bilirubin 0.2 mg/dL (0.2-1.0) Aspartate Amino Transferase (AST) 18 U/L (15-37) Alanine Aminotransferase (ALT) 31 U/L (16-63) Alkaline Phosphatase 82 U/L (46-116) Troponin I High Sensitivity 11 ng/L (4-75) JA-Upe-H-Type Natriuretic Peptide 769 pg/mL (0-124) H Total Protein 7.5 g/dL (6.4-8.2) Albumin 3.4 g/dL (3.4-5.0) Albumin/Globulin Ratio 0.8 (1.0-1.7) L Prothrombin Time 14.9 SEC (11.7-14.0) H Prothrombin Time INR 1.2 (0.8-1.1) H Activated Partial Thromboplast Time 30 SEC (24-38) D-Dimer (Yudi) 0.41 ug/mlFEU (0.00-0.50) Influenza Type A Antigen Negative (NEGATIVE) Influenza Type B Antigen Negative (NEGATIVE) Urine Collection Type Unknown Urine Color Yellow Urine Clarity Clear Urine pH 5.5 (<5.0-8.0) Urine Specific [place] >=1.030 (1.000-1.030) Urine Protein Negative mg/dL (NEG-TRACE) Urine Glucose (UA) Negative mg/dL (NEG) Urine Ketones (Stick) Negative mg/dL (NEG) Urine Blood Negative (NEG) Urine Nitrite Negative (NEG) Urine Bilirubin Negative (NEG) Urine Urobilinogen Dipstick 0.2 mg/dL (0.2 mg/dL) Urine Leukocyte Esterase Negative (NEG) Urine RBC 0 /HPF (0-2) Urine WBC 0 /HPF (0-4) Urine Bacteria 0 /HPF (0-FEW) Laboratory Tests 09/11/21 09:35 Laboratory Tests 09/11/21 09:35 ASSESSMENT/PLAN ASSESSMENT/PLAN 1. Palpitations, new onset AFIB/flutter presenting with RVR; s/p IV metoprolol. rate near 110 2. Lung CA s/p left lower lobectomy 3. COPD 4. H/o PE/DVT; on Eliquis 5. Hypertension; controlled Recommendations IV Dig x1 now TSH Echo to assess LV systolic function Continue Eliquis for stroke prophylaxis, PE/DVT prevention Consider addition of antiarrhythmic therapy and cardioversion Outpatient ischemic evaluation Supportive care Further pending echo LUIS ALFREDO JONES MD 09/11/21 1811: CARDIAC CONSULT ASSESSMENT/PLAN ASSESSMENT/PLAN The patient was seen and interviewed as well as examined at the bedside. The chart was reviewed. The case was discussed. Agree with the plan of care. Pt. seen and examined. Discussed with patient's . We will plan for metop and flecanide. Echo with preserved EF. f/u in office in 48 hours and plan for event monitor. Discussed with ER doc. All in agreement and ok for discharge given that patient is feeling well. FAINA EDWARDS APRN Sep 11, 2021 12:52 LUIS ALFREDO JONES MD Sep 11, 2021 18:11
[2021-09-11] MEDS ORDERED: ASPIRIN CHEWABLE 81 MG TABLET. PO ONE (14:00)
[2021-09-11] MEDS ORDERED: DIGOXIN IV 500 MCG/2 ML AMPUL. IV ONE (14:00)
[2021-09-11] MEDS ORDERED: METOPROLOL IV PUSH 5 MG/5 ML VIAL. IVP PRN (16:45)
[2021-09-11 17:01] VITALS: BP 130/84
[2021-09-11] MEDS ORDERED: METO25TA4 PO (17:10)
[2021-09-11] MEDS ORDERED: FLEC100T PO (17:10)
--- NOTE | 2021-09-11 17:17 | PDOC1 ---
History and Physical Date of Admission Date of Admission DATE: 09/11/21 TIME: 17:15 History of Present Illness History of Present Illness MR. Mcclain, is a 66 year old male admit with palpitations, new aflutter. He has COPD and lung cancer treated in [address]. [address] Chang office today, sent tot he ER. persistent tachycardia. Patient denies associated symptoms, however has shortness of breath that is associated with his COPD. Patient takes Eliquis daily due to history of PEs. Patient denies fever, chills, chest pain, edema, cough, lower extremity pain. Past Medical History Cardiovascular: HTN Pulmonary: COPD, Pulmonary embolus CENTRAL NERVOUS SYSTEM: CVA GI: No pertinent hx Heme/Onc: Cancer (lung ), Other (DVT) Hepatobiliary: No pertinent hx Psych: No pertinent hx Musculoskeletal: Osteoarthritis Rheumatologic: Gout Infectious disease: No pertinent hx Renal/: No pertinent hx Endocrine: No pertinent hx Past Surgical History Past Surgical History: Hernia Repair, Other (left lower lobectomy, vasectomy, skin grafts secondary to pierce ) Family History Family History: High Cholestrol, Hypertension Social History Smoke: No ALCOHOL: social Drugs: None Current Problem List Problem List Problems Medical Problems: (1) Atrial fibrillation with RVR Status: Acute (2) COPD (chronic obstructive pulmonary disease) Status: Acute (3) New onset atrial flutter Status: Acute Current Medications Current Medications Current Medications Iohexol (Omnipaque 350 Mg/ml) 75 ml 1X ONCE IV Last administered on 09/11/21at 10:30; Start 09/11/21 at 10:30; Stop 09/11/21 at 10:35; Status DC Info (CONTRAST GIVEN -- Rx MONITORING) 1 each PRN DAILY PRN MC SEE COMMENTS; Start 09/11/21 at 10:45; Stop 09/13/21 at 10:44 Sodium Chloride 500 ml @ 500 mls/hr 1X ONCE IV Last administered on 09/11/21at 11:50; Start 09/11/21 at 11:45; Stop 09/11/21 at 12:44; Status DC Metoprolol Tartrate (Lopressor Vial) 5 mg 1X ONCE IVP Last administered on at 11:50; Start 09/11/21 at 11:45; Stop 09/11/21 at 11:46; Status DC Metoprolol Tartrate (Lopressor Vial) 5 mg 1X ONCE IVP Last administered on 09/11/21at 12:35; Start 09/11/21 at 12:15; Stop 09/11/21 at 12:16; Status DC Digoxin (Lanoxin) 500 mcg 1X ONCE IV Last administered on 09/11/21at 14:20; Start 09/11/21 at 14:00; Stop 09/11/21 at 14:05; Status DC Aspirin (Aspirin Chewable) 324 mg 1X ONCE PO Last administered on 09/11/21at 14:19; Start 09/11/21 at 14:00; Stop 09/11/21 at 14:05; Status DC Diltiazem HCl 125 mg/Sodium Chloride 125 ml @ 5 mls/hr CONT PRN IV PER PROTOCOL; Start 09/11/21 at 16:45 Metoprolol Tartrate (Lopressor Vial) 5 mg 1X ONCE IVP ; Start 09/11/21 at 16:45; Stop 09/11/21 at 16:46; Status DC Metoprolol Tartrate (Lopressor Vial) 5 mg PRN Q5MIN PRN IVP TACHYCARDIA; Start 09/11/21 at 16:45 Active Scripts Active Flecainide Acetate 100 Mg Tablet 1 Tab PO BID Metoprolol Tartrate 25 Mg Tablet 1 Tab PO BID Hydrocodone-Apap 5-325 (Hydrocodone Bit/Acetaminophen) 1 Tab Tablet 2 Tab PO PRN Q6HRS PRN Eliquis (Apixaban) 5 Mg Tablet 5 Mg PO BID Reported Cholestyramine Packet (Cholestyramine (With Sugar)) 4 Gm Powd.pack 4 Gm PO BID Symbicort 80-4.5 Mcg Inhaler (Budesonide/Formoterol Fumarate) 10.2 Gm Hfa.aer.ad 1 Puff IH BID Proair Hfa Inhaler (Albuterol Sulfate) 8.5 Gm Hfa.aer.ad 1 Puff INH PRN Q6HRS PRN Allopurinol 300 Mg Tablet 300 Mg PO DAILY Meloxicam 15 Mg Tablet 15 Mg PO HS Allergies Allergies: Coded Allergies: adhesive tape (Verified Allergy, Intermediate, 11/10/19) oxycodone (Verified Allergy, Intermediate, sweating and itching, 11/10/19) paroxetine (Verified Adverse Reaction, Intermediate, diarrhea, 11/10/19) ROS General: YES: Fatigue PSYCHOLOGICAL ROS: No: Anxiety, Behavioral Disorder, Concentration difficultie, Decreased libido, Depression, Disorientation, Hallucinations, Hostility, Irritablity, Memory difficulties, Mood Swings, Obsessive thoughts, Physical abuse, Sexual abuse, Sleep disturbances, Suicidal ideation, Other Eyes: No Blurry vision, No Decreased vision, No Double vision, No Dry eyes, No Excessive tearing, No Eye Pain, No Itchy Eyes, No Loss of vision, No Photophobia, No Scotomata, No Uses contacts, No Uses glasses, No Other Respiratory: No: Cough, Hemoptysis, Orthopnea, Pleuritic Pain, Shortness of breath, SOB with excertion, Sputum Changes, Stridor, Tachypnea, Wheezing, Other Cardiovascular: yes Palpitations; No Orthopnea, No Paroxysmal Noc. Dyspnea, No Edema, No Lt Headedness, No Other Gastrointestinal: No Nausea, No Vomiting, No Abdominal Pain, No Diarrhea, No Constipation, No Melena, No Hematochezia, No Other Genitourinary: No Dysuria, No Frequency, No Incontinence, No Hematuria, No Retention, No Discharge, No Urgency, No Pain, No Flank Pain, No Other, No , No , No , No , No , No , No Musculoskeletal: No Gait Disturbance, No Joint Pain, No Joint Stiffness, No Joint Swelling, No Muscle Pain, No Muscular Weakness, No Pain In:, No Swelling In:, No Other Neurological: No Behavorial Changes, No Bowel/Bladder ControlChng, No Confusion, No Dizziness, No Gait Disturbance, No Headaches, No Impaired Coord/balance, No Memory Loss, No Numbness/Tingling, No Seizures, No Speech Problems, No Tremors, No Visual Changes, No Weakness, No Other Skin: No Dry Skin, No Eczema, No Hair Changes, No Lumps, No Mole Changes, No Mottling, No Nail Changes, No Pruritus, No Rash, No Skin Lesion Changes, No Other, No Acne Physical Exam General: Alert, Cooperative HEENT: Atraumatic, PERRLA Heart: irregularly irregular, other (tachy) Abdomen: Soft Extremities: No cyanosis, Normal pulses Skin: No rashes Neuro: Cranial nerves 3-12 NL Vitals Vitals Vital Signs Date Time Temp Pulse Resp B/P (MAP) Pulse Ox O2 Delivery O2 Flow Rate FiO2 09/11/21 14:20 114 119/93 09/11/21 14:18 25 98 Room Air 09/11/21 09:20 98.1 98.1 Labs Labs Laboratory Tests Test 09/11/21 09:35 09/11/21 10:45 09/11/21 10:50 09/11/21 12:00 White Blood Count 7.0 x10^3/uL (4.0-11.0) Red Blood Count 5.20 x10^6/uL (4.30-5.70) Hemoglobin 14.0 g/dL (13.0-17.5) Hematocrit 43.2 % (39.0-53.0) Mean Corpuscular Volume 83 fL (79-100) Mean Corpuscular Hemoglobin 27 pg (25-35) Mean Corpuscular Hemoglobin Concent 32 g/dL (31-37) Red Cell Distribution Width 14.8 % (11.5-14.5) Platelet Count 215 x10^3/uL (140-400) Neutrophils (%) (Auto) 73 % (31-73) Lymphocytes (%) (Auto) 17 % (24-48) Monocytes (%) (Auto) 8 % (0-9) Eosinophils (%) (Auto) 2 % (0-3) Basophils (%) (Auto) 1 % (0-3) Neutrophils # (Auto) 5.1 x10^3/uL (1.8-7.7) Lymphocytes # (Auto) 1.2 x10^3/uL (1.0-4.8) Monocytes # (Auto) 0.5 x10^3/uL (0.0-1.1) Eosinophils # (Auto) 0.1 x10^3/uL (0.0-0.7) Basophils # (Auto) 0.0 x10^3/uL (0.0-0.2) Sodium Level 137 mmol/L (136-145) Potassium Level 4.8 mmol/L (3.5-5.1) Chloride Level 103 mmol/L (98-107) Carbon Dioxide Level 29 mmol/L (21-32) Anion Gap 5 (6-14) Blood Urea Nitrogen 24 mg/dL (8-26) Creatinine 1.3 mg/dL (0.7-1.3) Estimated GFR (Cockcroft-Gault) 55.2 BUN/Creatinine Ratio 18 (6-20) Glucose Level 107 mg/dL (70-99) Calcium Level 8.7 mg/dL (8.5-10.1) Total Bilirubin 0.2 mg/dL (0.2-1.0) Aspartate Amino Transf (AST/SGOT) 18 U/L (15-37) Alanine Aminotransferase (ALT/SGPT) 31 U/L (16-63) Alkaline Phosphatase 82 U/L (46-116) Troponin I High Sensitivity 11 ng/L (4-75) ZU-Toa-C-Type Natriuretic Peptide 769 pg/mL (0-124) Total Protein 7.5 g/dL (6.4-8.2) Albumin 3.4 g/dL (3.4-5.0) Albumin/Globulin Ratio 0.8 (1.0-1.7) Thyroid Stimulating Hormone (TSH) 1.281 uIU/mL (0.358-3.74) Prothrombin Time 14.9 SEC (11.7-14.0) Prothromb Time International Ratio 1.2 (0.8-1.1) Activated Partial Thromboplast Time 30 SEC (24-38) D-Dimer (Yudi) 0.41 ug/mlFEU (0.00-0.50) Influenza Type A Antigen Negative (NEGATIVE) Influenza Type B Antigen Negative (NEGATIVE) SARS-CoV-2 RNA (MEGHAN) Negative (Negative) Urine Collection Type Unknown Urine Color Yellow Urine Clarity Clear Urine pH 5.5 (<5.0-8.0) Urine Specific [place] >=1.030 (1.000-1.030) Urine Protein Negative mg/dL (NEG-TRACE) Urine Glucose (UA) Negative mg/dL (NEG) Urine Ketones (Stick) Negative mg/dL (NEG) Urine Blood Negative (NEG) Urine Nitrite Negative (NEG) Urine Bilirubin Negative (NEG) Urine Urobilinogen Dipstick 0.2 mg/dL (0.2 mg/dL) Urine Leukocyte Esterase Negative (NEG) Urine RBC 0 /HPF (0-2) Urine WBC 0 /HPF (0-4) Urine Bacteria 0 /HPF (0-FEW) Laboratory Tests Test 09/11/21 09:35 09/11/21 10:45 09/11/21 10:50 09/11/21 12:00 White Blood Count 7.0 x10^3/uL (4.0-11.0) Red Blood Count 5.20 x10^6/uL (4.30-5.70) Hemoglobin 14.0 g/dL (13.0-17.5) Hematocrit 43.2 % (39.0-53.0) Mean Corpuscular Volume 83 fL (79-100) Mean Corpuscular Hemoglobin 27 pg (25-35) Mean Corpuscular Hemoglobin Concent 32 g/dL (31-37) Red Cell Distribution Width 14.8 % (11.5-14.5) Platelet Count 215 x10^3/uL (140-400) Neutrophils (%) (Auto) 73 % (31-73) Lymphocytes (%) (Auto) 17 % (24-48) Monocytes (%) (Auto) 8 % (0-9) Eosinophils (%) (Auto) 2 % (0-3) Basophils (%) (Auto) 1 % (0-3) Neutrophils # (Auto) 5.1 x10^3/uL (1.8-7.7) Lymphocytes # (Auto) 1.2 x10^3/uL (1.0-4.8) Monocytes # (Auto) 0.5 x10^3/uL (0.0-1.1) Eosinophils # (Auto) 0.1 x10^3/uL (0.0-0.7) Basophils # (Auto) 0.0 x10^3/uL (0.0-0.2) Sodium Level 137 mmol/L (136-145) Potassium Level 4.8 mmol/L (3.5-5.1) Chloride Level 103 mmol/L (98-107) Carbon Dioxide Level 29 mmol/L (21-32) Anion Gap 5 (6-14) Blood Urea Nitrogen 24 mg/dL (8-26) Creatinine 1.3 mg/dL (0.7-1.3) Estimated GFR (Cockcroft-Gault) 55.2 BUN/Creatinine Ratio 18 (6-20) Glucose Level 107 mg/dL (70-99) Calcium Level 8.7 mg/dL (8.5-10.1) Total Bilirubin 0.2 mg/dL (0.2-1.0) Aspartate Amino Transf (AST/SGOT) 18 U/L (15-37) Alanine Aminotransferase (ALT/SGPT) 31 U/L (16-63) Alkaline Phosphatase 82 U/L (46-116) Troponin I High Sensitivity 11 ng/L (4-75) IX-Tgt-V-Type Natriuretic Peptide 769 pg/mL (0-124) Total Protein 7.5 g/dL (6.4-8.2) Albumin 3.4 g/dL (3.4-5.0) Albumin/Globulin Ratio 0.8 (1.0-1.7) Thyroid Stimulating Hormone (TSH) 1.281 uIU/mL (0.358-3.74) Prothrombin Time 14.9 SEC (11.7-14.0) Prothromb Time International Ratio 1.2 (0.8-1.1) Activated Partial Thromboplast Time 30 SEC (24-38) D-Dimer (Yudi) 0.41 ug/mlFEU (0.00-0.50) Influenza Type A Antigen Negative (NEGATIVE) Influenza Type B Antigen Negative (NEGATIVE) SARS-CoV-2 RNA (MEGHAN) Negative (Negative) Urine Collection Type Unknown Urine Color Yellow Urine Clarity Clear Urine pH 5.5 (<5.0-8.0) Urine Specific [place] >=1.030 (1.000-1.030) Urine Protein Negative mg/dL (NEG-TRACE) Urine Glucose (UA) Negative mg/dL (NEG) Urine Ketones (Stick) Negative mg/dL (NEG) Urine Blood Negative (NEG) Urine Nitrite Negative (NEG) Urine Bilirubin Negative (NEG) Urine Urobilinogen Dipstick 0.2 mg/dL (0.2 mg/dL) Urine Leukocyte Esterase Negative (NEG) Urine RBC 0 /HPF (0-2) Urine WBC 0 /HPF (0-4) Urine Bacteria 0 /HPF (0-FEW) VTE Prophylaxis Ordered VTE Prophylaxis Devices: Yes VTE Pharmacological Prophylaxi: Yes Assessment/Plan Assessment/Plan atrial flutter, with RVR obs in ER, DC home COPD stable start [facility] Justifications for Admission Other Justification ERNIN CORRALES MD Sep 11, 2021 17:17
--- NOTE | 2021-09-11 17:22 | EKG ---
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
--- NOTE | 2021-09-11 17:22 | EKG ---
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
--- NOTE | 2021-09-11 17:30 | EKG ---
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
--- NOTE | 2021-09-12 11:12 | CARD ---
MR#: [id number] Date of Study: 09/11/2021 Ordering Physician: LUIS ALFREDO JONES, Referring Physician: LUIS ALFREDO JONES, Tech: Yasmin José, [facility] APPROVED REPORT EXAM: Two-dimensional and M-mode echocardiogram with Doppler and color Doppler. Other Information Quality : AverageHR: 138bpm Technically limited study due to Rapid heart rate INDICATION COPD Atrial Fibrillation RISK FACTORS Asthma 2D DIMENSIONS Left Atrium(2D)3.4 (1.6-4.0cm)IVSd0.9 (0.7-1.1cm) Aortic Root(2D)3.4 (2.0-3.7cm)LVDd4.6 (3.9-5.9cm) LVOT Diameter2.1 (1.8-2.4cm)PWd0.7 (0.7-1.1cm) LVDs2.7 (2.5-4.0cm)FS (%) 41.2 % SV68.9 mlLVEF(%)62.1 (>50%) Aortic Valve AoV Peak Josse.96.8cm/sAoV VTI13.3cm AO Peak GR.3.8mmHgLVOT VTI 11.01cm AO Mean GR.2mmHg TDI Lateral E' P. V6.53cm/sMedial E' P. V6.92cm/s Tricuspid Valve TR P. [id number]/sRAP [id number] TR Peak Gr.[id number] LEFT VENTRICLE The left ventricle is normal size. There is normal left ventricular wall thickness. Left ventricular systolic function is normal. The ejection fraction is estimated at 55%. There is normal LV segmental wall motion. Diastology indeterminate due to atrial fibrillation. RIGHT VENTRICLE The right ventricle is mildly to moderately dilated measuring 3.9 cm. There is normal right ventricul ar wall thickness. Systolic function is borderline reduced. ATRIA The left atrium size is normal. The right atrium is moderately dilated. The interatrial septum is int act with no evidence for an atrial septal defect or patent foramen ovale as noted on 2-D or Doppler i maging. AORTIC VALVE The aortic valve is normal in structure and function. Doppler and Color Flow revealed no significant aortic regurgitation. There is no significant aortic valvular stenosis. Calculated aortic valve area is 2.33 cm2 with maximum pressure gradient of 5 mmHg and mean pressure gradient of 3 mmHg. MITRAL VALVE The mitral valve is normal in structure and function. There is no evidence of mitral valve prolapse. There is no mitral valve stenosis. Doppler and Color-flow revealed trace mitral regurgitation. TRICUSPID VALVE The tricuspid valve is normal in structure and function. Doppler and Color Flow revealed mild tricusp id regurgitation with an estimated PAP of 38 mmHg. There is no tricuspid valve stenosis. PULMONIC VALVE The pulmonic valve is not well visualized. Doppler and Color Flow revealed trace pulmonic valvular re gurgitation. GREAT VESSELS The aortic root is normal in size. The IVC was not visualized. PERICARDIAL EFFUSION There is no evidence of significant pericardial effusion. Critical Notification Critical Value: No <Conclusion> Left ventricular systolic function is normal. The ejection fraction is estimated at 55%. There is normal LV segmental wall motion. Trace mitral regurgitation. Mild tricuspid regurgitation with an estimated PAP of 38 mmHg. There is no evidence of significant pericardial effusion. Signed by : Bert Reardon, Electronically Approved : 09/12/2021 11:11:25
== END 2021-09-11 17:30 | disposition home or self-care (01) | DRG 309 ==
LOC: ER 09:17 → ED HOLD 13:36 → 6 SOUTH 19:52 → ED HOLD 19:52
PROVIDERS: ADMIT Internal Medicine; ATTEND Internal Medicine
DX: I48.91 Unspecified atrial fibrillation (principal); J98.11 Atelectasis; I48.92 Unspecified atrial flutter; J44.9 Chronic obstructive pulmonary disease, unspecified; Z82.49 Family history of ischemic heart disease and other diseases of the circulatory system; I10 Essential (primary) hypertension; Z85.118 Personal history of other malignant neoplasm of bronchus and lung; Z86.711 Personal history of pulmonary embolism; Z86.73 Personal history of transient ischemic attack (TIA), and cerebral infarction without residual deficits; Z87.891 Personal history of nicotine dependence; Z90.2 Acquired absence of lung [part of]; M10.9 Gout, unspecified; M19.90 Unspecified osteoarthritis, unspecified site; Z20.822 Contact with and (suspected) exposure to COVID-19; Z86.718 Personal history of other venous thrombosis and embolism; Z79.01 Long term (current) use of anticoagulants; Z88.8 Allergy status to other drugs, medicaments and biological substances
CPT/HCPCS: 36415; 71045; 71275; 80053; 81001; 83880; 84443; 84484; 85025; 85379; 85610; 85730; 87804; 93005; 93306; 96361; 96374; 96376; J1160; J3490; J7040; Q9967; U0003; U0005; 99285-25

== ENCOUNTER 2021-10-31 08:06 | Outpatient (CLI) | payer OTHER, MEDICARE ==
[~2021-10-31] VITALS: Ht 185.4 cm; Wt 96.3 kg
[2021-10-31] VITALS (10 sets, daily range): BP systolic 91–116; BP diastolic 65–97
[~2021-10-31 08:06] MED LIST changes: +FLEC100T PO; +METO25TA4 PO
[2021-10-31] MEDS ORDERED: LIDOCAINE 1% Multi-Dose 20 ML VIAL. ONE (08:44)
[2021-10-31] MEDS ORDERED: IODIXANOL 320 MG/ML 100 ML VIAL. ONE (08:45)
[2021-10-31] MEDS ORDERED: HEPARIN for ARTERIAL LINE 1,500 ML ONE (08:45)
[2021-10-31 09:01] LABS: HEMATOCRIT 42.2 % (39.0-53.0); HEMOGLOBIN 13.7 g/dL (13.0-17.5); RED BLOOD COUNT 5.11 x10^6/uL (4.30-5.70); RED CELL DISTRIBUTION WIDTH 14.5 % (11.5-14.5); WHITE BLOOD COUNT 6.7 x10^3/uL (4.0-11.0)
[2021-10-31 09:11] LABS: PROTHROMBIN TIME PATIENT 13.4 SEC (11.7-14.0)
[2021-10-31 09:13] LABS: CALCIUM 8.2 mg/dL (8.5-10.1); CREATININE 1.3 mg/dL (0.7-1.3); GFR 55.2; POTASSIUM 4.7 mmol/L (3.5-5.1)
[2021-10-31] MEDS ORDERED: fentaNYL PF VIAL 100 MCG/2 ML VIAL ONE (09:31)
[2021-10-31] MEDS ORDERED: MIDAZOLAM HCL/PF 2 MG/2 ML VIAL. ONE (09:31)
[2021-10-31] MEDS ORDERED: LIDOCAINE 1% Multi-Dose 20 ML VIAL. INJ ONE (10:15)
[2021-10-31] MEDS ORDERED: MIDAZOLAM HCL/PF 2 MG/2 ML VIAL. IV ONE (10:15)
[2021-10-31] MEDS ORDERED: fentaNYL PF VIAL 100 MCG/2 ML VIAL IV ONE (10:15)
[2021-10-31] MEDS ORDERED: IODIXANOL 320 MG/ML 100 ML VIAL. IART ONE (10:15)
[2021-10-31] MEDS ORDERED: CONTRAST GIVEN. MC PRN (10:15)
--- NOTE | 2021-10-31 10:51 | CARD ---
MR#: [id number] Date of Study: 10/31/2021 Ordering Physician: LUIS ALFREDO SANDOVAL, Referring Physician: LUIS ALFREDO SANDOVAL, Tech: RT Sylvia(R) APPROVED REPORT Technologist: RT Sylvia(R) Nurse: Yeimy Quiroz RN Procedure(s) performed: fl time: 3.6 min dose: 41 gycm2 contrast: 27 ml moderate sedation: 53 MINS Right and left heart cath and coronary angiography INDICATION The indication(s) include : dyspnea. [facility] Clinical Frailty Scale [facility] Clinical Frailty Scale: Severely Frail Heart Failure Heart Failure: Yes If Yes, Newly Diagnosed: No If Yes, HF Type: Diastolic If Yes, NYHA Class: Class III CASE TECHNIQUE IV conscious sedation was used throughout procedure with appropriate monitoring and was performed in the presence of a registered nurse who was an independent trained observer other than the physician p erforming the procedure. During this case, Fluoroscopy and low osmolar contrast were used for imaging . Specimen(s) Removed: N/A Estimated Blood loss: 15 cc's. PROCEDURE NARRATIVE Clinical information: 66-year-old male comes into the [facility] for evaluation of dyspnea in the setting of severe pulmonary disease and multiple cardiovascular risk factors including prior tobacco use and family history. Procedure details: Under 1% lidocaine local anesthesia and ultrasound and fluoroscopic guidance a 5 Ethiopian [address] was pl aced in the right internal jugular vein and a 4 Ethiopian sheath was placed in the right common femoral artery. A 5 Ethiopian PA catheter was advanced to the right heart chambers and pressures and saturation s were obtained. Next, diagnostic angiography was performed with a 4 Ethiopian JL4 and JR4 catheters. Left ventricular end-diastolic pressure was obtained with a JR4 catheter and a pullback was performed . At case completion all catheters and sheaths were removed and hemostasis was achieved via manual c ompression in the right neck and right groin. No acute complications. Findings: Hemodynamics: Aorta 110/80, heart rate 85 Right heart catheterization: RA 8 mmHg RV 29/2/8 mmHg PA 29/12/20 Wedge 11 mmHg LVEDP 10 mmHg PA saturation 76% FA saturation 99% on 2 L nasal cannula Hunter cardiac output 6.3 L/min, cardiac index 2.8 Coronary angiography: Left main is a large-caliber vessel with normal angiographic appearance LAD is a moderate caliber vessel with normal angiographic appearance Left circumflex is a moderate to large caliber dominant vessel with normal angiographic appearance RCA is a small caliber nondominant vessel with normal angiographic appearance Conclusion 1. Normal biventricular filling pressures 2. No significant pulmonary hypertension 3. Normal cardiac output 4. No significant coronary artery disease Recommendations 1. Continued medical therapy of severe pulmonary disease which is likely the cause of the patient's persistent dyspnea. Signed by : Luis Alfredo Sandoval, Electronically Approved : 10/31/2021 10:50:23
--- NOTE | 2021-10-31 12:53 | NUR ---
Discharge Note: DEBBIE SHARIF Discharge instructions and discharge home medications reviewed with Patient and a copy given. All questions have been answered and understanding verbalized. The following instructions and handouts were given: moderate sedation and groin site care. Discontinued lines and drains: left fa iv dc't, tip intact, pressure held and bandage applied. Patient discharged to home with (Pattie) via personal vehicle.
== END 2021-10-31 12:59 | disposition home or self-care (01) ==
LOC: CCL 08:06
PROVIDERS: ATTEND Internal Medicine Cardiovascular Disease
DX: R06.09 Other forms of dyspnea (principal); I10 Essential (primary) hypertension; I48.91 Unspecified atrial fibrillation; J44.9 Chronic obstructive pulmonary disease, unspecified; E66.9 Obesity, unspecified; M19.90 Unspecified osteoarthritis, unspecified site; M10.9 Gout, unspecified; Z87.891 Personal history of nicotine dependence; Z79.899 Other long term (current) drug therapy; Z72.89 Other problems related to lifestyle; Z98.890 Other specified postprocedural states; Z88.8 Allergy status to other drugs, medicaments and biological substances
CPT/HCPCS: 36415; 76937; 80048; 85027; 85610; 93460; 94618; 99152; 99153; C1769; C1773; C1894; J1644; J2250; J3010; J3490; Q9967

== ENCOUNTER → 2022-01-24 | Outpatient (CLI) | payer OTHER, MEDICARE ==
[2021-10-31 12:35] VITALS: BP 116/78
[~2022-01-24] MED LIST changes: -CHOL4POW2 PO; +CHOL4POW6 PO
[2022-01-24 10:31] LABS: BASO % 1 % (0-3); EOS # 0.2 x10^3/uL (0.0-0.7); EOS % 3 % (0-3); HEMATOCRIT 43.2 % (39.0-53.0); HEMOGLOBIN 14.1 g/dL (13.0-17.5); LYMPH # 0.9 x10^3/uL (1.0-4.8); LYMPH % 13 % (24-48); MEAN CORPUSCULAR HEMOGLOBIN 28 pg (25-35); MEAN CORPUSCULAR HGB CONC 33 g/dL (31-37); MEAN CORPUSCULAR VOLUME 85 fL (79-100); MONO # 0.9 x10^3/uL (0.0-1.1); MONO % 13 % (0-9); NEUT # 4.9 x10^3/uL (1.8-7.7); NEUT % 70 % (31-73); PLATELET COUNT 187 x10^3/uL (140-400); RED BLOOD COUNT 5.09 x10^6/uL (4.30-5.70); RED CELL DISTRIBUTION WIDTH 15.6 % (11.5-14.5)
[2022-01-24 10:48] LABS: ALBUMIN 3.5 g/dL (3.4-5.0); ALBUMIN/GLOBULIN RATIO 0.9 (1.0-1.7); CALCIUM 8.7 mg/dL (8.5-10.1); CREATININE 1.3 mg/dL (0.7-1.3); GFR 55.2; POTASSIUM 4.8 mmol/L (3.5-5.1); TOTAL BILIRUBIN 0.5 mg/dL (0.2-1.0); TOTAL PROTEIN 7.4 g/dL (6.4-8.2)
== END ==
LOC: ONCLAB 10:09
PROVIDERS: ATTEND Internal Medicine Hematology & Oncology
DX: C34.12 Malignant neoplasm of upper lobe, left bronchus or lung (principal)
CPT/HCPCS: 36415; 80053; 85025